=== PATIENT | female | born 1940 | race Caucasian/White ===

== ENCOUNTER 2017-01-27 15:10 | Inpatient (IN) | payer MEDICARE, OTHER ==
[2017-01-27] MEDS ORDERED: SODIUM CHLORIDE 0.9% 1,000 ML IV ONE (16:17)
[2017-01-27] MEDS ORDERED: ONDANSETRON 4 MG/2 ML VIAL IVP STA (16:17)
[2017-01-27] MEDS ORDERED: HYDROmorphone 1 MG/ML 1 ML SYRINGE IVP STA ×2 (16:17→21:11)
[2017-01-27] MEDS ORDERED: RX INFO: IV CONTRAST WAS GIVEN 1 EACH MISC MISCELLANE PRN (16:17)
[2017-01-27] MEDS ORDERED: IOHEXOL 350 MG/ML 25 ML BOTTLE (ORAL USE) PO PRN (16:17)
--- NOTE | 2017-01-27 16:22 | ED ---
Abdominal Pain HPI - General Chief Complaint: Abdominal Pain Stated Complaint: abdominal pain Source: patient Mode of arrival: wheelchair Limitations: no limitations - History of Present Illness Initial Comments: 76-year-old female with a past medical history of DM, HLD, HTN, appendectomy, cholecystectomy, hysterectomy, and small bowel obstruction presented for evaluation of generalized abdominal pain and distention. She states he symptoms have been progressively worsening over the last 2 weeks but acutely worsened today. She describes as a crampy sharpness currently out of 10 out of 10 constant with associated nausea. She states there was some diarrhea initially and her last bowel movement was this morning however she has not been passing gas since yesterday and she states this is abnormal. She states her symptoms feel like the last time she had a bowel obstruction. - Related Data Home Medications Medication Instructions Recorded Confirmed Albuterol Sulfate [Proair Hfa] 1 - 2 puff INHALATION RT-Q6H PRN 05/08/14 Amitriptyline HCl [Elavil] 150 mg PO HS 05/08/14 01/27/17 Clopidogrel [Plavix] 75 mg PO DAILY 05/08/14 01/27/17 Esomeprazole Magnesium [NexIUM] 20 mg PO AC-BRKFST 05/08/14 01/27/17 Levothyroxine Sodium [Synthroid] 75 mcg PO DAILY 05/08/14 01/27/17 Topiramate [Topamax] 100 mg PO TID 05/08/14 01/27/17 HYDROcodone/APAP 10-325MG [[place] 1 tab PO QID 01/29/16 01/27/17 10-325] Calcium Carbonate 400mg 400 mg PO BID 01/27/17 01/27/17 Cholecalciferol [Vitamin D3] 10,000 unit PO DAILY 01/27/17 01/27/17 Docusate [Colace] 100 mg PO BID PRN 01/27/17 01/27/17 Furosemide [Lasix] 20 mg PO DAILY PRN 01/27/17 01/27/17 LORazepam [Ativan] 0.5 mg PO DAILY PRN 01/27/17 01/27/17 LORazepam [Ativan] 1 mg PO HS 01/27/17 01/27/17 Metoprolol Tartrate [Lopressor] 50 mg PO BID 01/27/17 01/27/17 Morphine Sulfate ER [Ms Contin 60 mg PO Q12HR 01/27/17 01/27/17 60Mg] Phenytoin Sodium Extended 200 mg PO BID 01/27/17 01/27/17 [Dilantin] QUEtiapine [SEROquel] 25 mg PO BID 01/27/17 01/27/17 Vitamin B Complex 1 cap PO DAILY 01/27/17 01/27/17 amLODIPine [Norvasc] 10 mg PO DAILY 01/27/17 01/27/17 cloNIDine HCL [Catapres] 0.1 mg PO BID 01/27/17 01/27/17 levETIRAcetam [Keppra] 500 mg PO TID 01/27/17 01/27/17 Allergies Allergy/AdvReac Type Severity Reaction Status Date / Time cephalexin [From Keflex] Allergy Unknown Verified 01/27/17 16:50 Cephalosporins Allergy Unknown Verified 01/27/17 16:50 ciprofloxacin [From Cipro] Allergy Rash/Hives Verified 01/27/17 16:50 diazepam [From Valium] Allergy Unknown Verified 01/27/17 16:50 erythromycin base Allergy Unknown Verified 01/27/17 16:50 [Erythromycin Base] ketorolac tromethamine Allergy Unknown Verified 01/27/17 16:50 [From Toradol] Penicillins Allergy Unknown Verified 01/27/17 16:50 pentazocine lactate Allergy Unknown Verified 01/27/17 16:50 [From Talwin] Sulfa (Sulfonamide Allergy Unknown Verified 01/27/17 16:50 Antibiotics) sumatriptan [From Imitrex] Allergy Unknown Verified 01/27/17 16:50 sumatriptan succinate Allergy Unknown Verified 01/27/17 16:50 [From Imitrex] tetracycline [Tetracycline] Allergy Unknown Verified 01/27/17 16:50 vancomycin Allergy Unknown Verified 01/27/17 16:50 levofloxacin [From Levaquin] AdvReac Nausea & Verified 01/27/17 16:50 Vomiting Review of Systems ROS Statement: Those systems with pertinent positive or pertinent negative responses have been documented in the HPI. ROS Other: All systems not noted in ROS Statement are negative. Constitutional: Denies: fever, chills Eyes: Denies: eye pain, eye discharge ENT: Denies: ear pain, throat pain Respiratory: Reports: dyspnea (unable to take deep inspirations due to abdominal pain). Denies: cough Cardiovascular: Denies: chest pain, palpitations, dyspnea on exertion Endocrine: Denies: fatigue, polydipsia, polyuria Gastrointestinal: Reports: abdominal pain, nausea, diarrhea, constipation. Denies: vomiting, hematemesis, melena, hematochezia Genitourinary: Denies: urgency, dysuria Musculoskeletal: Denies: back pain, arthralgia, myalgia Skin: Denies: rash, lesions Neurological: Denies: headache, weakness Psychiatric: Denies: anxiety, depression Hematological/Lymphatic: Denies: easy bleeding, easy bruising Past Medical History Past Medical History: Diabetes Mellitus, Hyperlipidemia, Hypertension History of Any Multi-Drug Resistant Organisms: MRSA Date of last positivie culture/infection: 2013 MDRO Source:: (R) arm Past Surgical History: Appendectomy, Cholecystectomy, Hysterectomy, Tonsillectomy Past Psychological History: Anxiety Smoking Status: Never smoker Past Alcohol Use History: None Reported Past Drug Use History: None Reported - Past Family History Mother Additional Family Medical History / Comment(s): Brain tumor Brother(s) Additional Family Medical History / Comment(s): Colon Cancer Father Family Medical History: Cancer Additional Family Medical History / Comment(s): Lung cancer General Exam Limitations: no limitations General appearance: alert, in distress Head exam: Present: atraumatic, normocephalic, normal inspection Eye exam: Present: normal appearance, PERRL, EOMI. Absent: scleral icterus, conjunctival injection, periorbital swelling ENT exam: Present: normal exam, mucous membranes moist Neck exam: Present: normal inspection. Absent: tenderness, meningismus, lymphadenopathy Respiratory exam: Present: normal lung sounds bilaterally. Absent: respiratory distress, wheezes, rales, rhonchi, stridor Cardiovascular Exam: Present: normal rhythm, tachycardia, normal heart sounds. Absent: systolic murmur, diastolic murmur, rubs, gallop, clicks GI/Abdominal exam: Present: soft, distended, tenderness. Absent: guarding, rebound, rigid Rectal exam: Present: deferred Extremities exam: Present: normal inspection, full ROM, normal capillary refill. Absent: tenderness, pedal edema, joint swelling, calf tenderness Back exam: Present: normal inspection Neurological exam: Present: alert, oriented X3, CN II-XII intact Psychiatric exam: Present: normal affect, normal mood Skin exam: Present: warm, dry, intact, normal color. Absent: rash Course Vital Signs 01/27/17 01/27/17 01/27/17 15:39 19:11 21:20 Temperature 99.4 F 98.2 F 98.8 F Pulse Rate 107 H 90 86 Respiratory 18 20 19 Rate Blood Pressure 186/88 O2 Sat by Pulse 100 98 97 Oximetry Medical Decision Making - Medical Decision Making 76-year-old female with past medical history of multiple abdominal surgeries, bowel obstruction, and ventral hernias presented for evaluation of abdominal pain and distention. Symptoms have been for the last 2 weeks but acutely worsened today. She also states decreased flatness and her last bowel movement was a small one this morning. She states this feels similar to her previous bowel obstruction. On physical examination the patient's abdomen does appear to be distended and is tender to palpation throughout. There is a ventral hernia noted to the right abdomen just lateral to the umbilicus however it does not feel incarcerated and it is not reducible either. Lungs are clear to auscultation bilaterally and the patient is tachycardic. Concern for bowel obstruction versus ileus versus pancreatitis versus diverticulitis and will obtain CT abdomen and pelvis with oral contrast, EKG, acute abdominal series, labs, and provide IV fluids, pain control, and Zofran. Labs significant for pancreatitis. UA showed possible urinary tract infection. CT abdomen and pelvis with by mouth contrast shows mild constipation and dilated urinary bladder as well as bilateral hydronephrosis without hydroureter. Hydronephrosis is worse on the right compared to the left compared to previous scans. There are certain calculus identified however and this change may be chronic. There is a large ventral hernia however there is no evidence of bowel obstruction there is also a loop of small bowel in the right mid abdomen as have some wall thickening that is new compared to old exam and may indicate inflammatory bowel disease. Admitting team updated on the status of the patient and accepted the admission without further request. Admission order placed and bed request submitted. Pt made NPO and IVF/pain control continued. Pt started on antibiotics to cover for both UTI and intraabdominal infection. - Lab Data Result diagrams: 01/27/17 17:00 01/27/17 17:00 Lab Results 01/27/17 01/27/17 01/27/17 Range/Units 17:00 17:00 17:00 WBC 6.7 (3.8-10.6) k/uL RBC 4.56 (3.80-5.40) m/uL Hgb 11.5 (11.4-16.0) gm/dL Hct 37.2 (34.0-46.0) % MCV 81.5 (80.0-100.0) fL MCH 25.2 (25.0-35.0) pg MCHC 30.9 L (31.0-37.0) g/dL RDW 14.6 (11.5-15.5) % Plt Count 229 (150-450) k/uL Neutrophils % 79 % Lymphocytes % 10 % Monocytes % 7 % Eosinophils % 2 % Basophils % 0 % Neutrophils # 5.3 (1.3-7.7) k/uL Lymphocytes # 0.7 L (1.0-4.8) k/uL Monocytes # 0.4 (0-1.0) k/uL Eosinophils # 0.1 (0-0.7) k/uL Basophils # 0.0 (0-0.2) k/uL Hypochromasia Slight PT (9.0-12.0) sec INR (<1.2) APTT (22.0-30.0) sec Sodium 143 (137-145) mmol/L Potassium 4.3 (3.5-5.1) mmol/L Chloride 110 H (98-107) mmol/L Carbon Dioxide 22 (22-30) mmol/L Anion Gap 11 mmol/L BUN 18 H (7-17) mg/dL Creatinine 0.70 (0.52-1.04) mg/dL Est GFR (MDRD) Af Amer >60 (>60 ml/min/1.73 sqM) Est GFR (MDRD) Non-Af >60 (>60 ml/min/1.73 sqM) Glucose 107 H (74-99) mg/dL Plasma Lactic Acid [place] 1.4 (0.7-2.0) mmol/L Calcium 9.6 (8.4-10.2) mg/dL Total Bilirubin 0.3 (0.2-1.3) mg/dL AST 36 (14-36) U/L ALT 42 (9-52) U/L Alkaline Phosphatase 82 (38-126) U/L Troponin I (0.000-0.034) ng/mL Total Protein 6.5 (6.3-8.2) g/dL Albumin 4.0 (3.5-5.0) g/dL Lipase 954 H (23-300) U/L Urine Color Urine Appearance (Clear) Urine pH (5.0-8.0) Ur Specific [place] (1.001-1.035) Urine Protein (Negative) Urine Glucose (UA) (Negative) Urine Ketones (Negative) Urine Blood (Negative) Urine Nitrite (Negative) Urine Bilirubin (Negative) Urine Urobilinogen (<2.0) mg/dL Ur Leukocyte Esterase (Negative) Urine RBC (0-5) /hpf Urine WBC (0-5) /hpf Ur Squamous Epith Cells (0-4) /hpf Urine Bacteria (None) /hpf Blood Type Blood Type Recheck Antibody Screen Spec Expiration Date 01/27/17 01/27/17 01/27/17 Range/Units 17:00 17:00 17:47 WBC (3.8-10.6) k/uL RBC (3.80-5.40) m/uL Hgb (11.4-16.0) gm/dL Hct (34.0-46.0) % MCV (80.0-100.0) fL MCH (25.0-35.0) pg MCHC (31.0-37.0) g/dL RDW (11.5-15.5) % Plt Count (150-450) k/uL Neutrophils % % Lymphocytes % % Monocytes % % Eosinophils % % Basophils % % Neutrophils # (1.3-7.7) k/uL Lymphocytes # (1.0-4.8) k/uL Monocytes # (0-1.0) k/uL Eosinophils # (0-0.7) k/uL Basophils # (0-0.2) k/uL Hypochromasia PT 10.4 (9.0-12.0) sec INR 1.0 (<1.2) APTT 23.5 (22.0-30.0) sec Sodium (137-145) mmol/L Potassium (3.5-5.1) mmol/L Chloride (98-107) mmol/L Carbon Dioxide (22-30) mmol/L Anion Gap mmol/L BUN (7-17) mg/dL Creatinine (0.52-1.04) mg/dL Est GFR (MDRD) Af Amer (>60 ml/min/1.73 sqM) Est GFR (MDRD) Non-Af (>60 ml/min/1.73 sqM) Glucose (74-99) mg/dL Plasma Lactic Acid [place] (0.7-2.0) mmol/L Calcium (8.4-10.2) mg/dL Total Bilirubin (0.2-1.3) mg/dL AST (14-36) U/L ALT (9-52) U/L Alkaline Phosphatase (38-126) U/L Troponin I <0.012 (0.000-0.034) ng/mL Total Protein (6.3-8.2) g/dL Albumin (3.5-5.0) g/dL Lipase (23-300) U/L Urine Color Urine Appearance (Clear) Urine pH (5.0-8.0) Ur Specific [place] (1.001-1.035) Urine Protein (Negative) Urine Glucose (UA) (Negative) Urine Ketones (Negative) Urine Blood (Negative) Urine Nitrite (Negative) Urine Bilirubin (Negative) Urine Urobilinogen (<2.0) mg/dL Ur Leukocyte Esterase (Negative) Urine RBC (0-5) /hpf Urine WBC (0-5) /hpf Ur Squamous Epith Cells (0-4) /hpf Urine Bacteria (None) /hpf Blood Type B Positive Blood Type Recheck B Pos Antibody Screen NEGATIVE Spec Expiration Date 01/30/2017234601/27/17 Range/Units 20:27 WBC (3.8-10.6) k/uL RBC (3.80-5.40) m/uL Hgb (11.4-16.0) gm/dL Hct (34.0-46.0) % MCV (80.0-100.0) fL MCH (25.0-35.0) pg MCHC (31.0-37.0) g/dL RDW (11.5-15.5) % Plt Count (150-450) k/uL Neutrophils % % Lymphocytes % % Monocytes % % Eosinophils % % Basophils % % Neutrophils # (1.3-7.7) k/uL Lymphocytes # (1.0-4.8) k/uL Monocytes # (0-1.0) k/uL Eosinophils # (0-0.7) k/uL Basophils # (0-0.2) k/uL Hypochromasia PT (9.0-12.0) sec INR (<1.2) APTT (22.0-30.0) sec Sodium (137-145) mmol/L Potassium (3.5-5.1) mmol/L Chloride (98-107) mmol/L Carbon Dioxide (22-30) mmol/L Anion Gap mmol/L BUN (7-17) mg/dL Creatinine (0.52-1.04) mg/dL Est GFR (MDRD) Af Amer (>60 ml/min/1.73 sqM) Est GFR (MDRD) Non-Af (>60 ml/min/1.73 sqM) Glucose (74-99) mg/dL Plasma Lactic Acid [place] (0.7-2.0) mmol/L Calcium (8.4-10.2) mg/dL Total Bilirubin (0.2-1.3) mg/dL AST (14-36) U/L ALT (9-52) U/L Alkaline Phosphatase (38-126) U/L Troponin I (0.000-0.034) ng/mL Total Protein (6.3-8.2) g/dL Albumin (3.5-5.0) g/dL Lipase (23-300) U/L Urine Color Light Yellow Urine Appearance Cloudy H (Clear) Urine pH 5.5 (5.0-8.0) Ur Specific [place] 1.006 (1.001-1.035) Urine Protein Negative (Negative) Urine Glucose (UA) Negative (Negative) Urine Ketones Negative (Negative) Urine Blood Negative (Negative) Urine Nitrite Positive H (Negative) Urine Bilirubin Negative (Negative) Urine Urobilinogen <2.0 (<2.0) mg/dL Ur Leukocyte Esterase Small H (Negative) Urine RBC 11 H (0-5) /hpf Urine WBC 6 H (0-5) /hpf Ur Squamous Epith Cells <1 (0-4) /hpf Urine Bacteria Moderate H (None) /hpf Blood Type Blood Type Recheck Antibody Screen Spec Expiration Date 01/27/17 17:55 Number sinus rhythm with right bundle branch block and a ventricular rate of 96 , AMAYA 144 QRS 142 QT/QTC 388/490. Disposition Clinical Impression: Pancreatitis, UTI (urinary tract infection), Inflammatory bowel disease Disposition: ADMITTED IP TO THIS [facility] Decision to Admit Reason: Admit from EC Decision Date: 01/27/17 Decision Time: 21:22
[2017-01-27 17:16] LABS: Basophils % (A) 0 %; CH 25.4; CHCM 31.3; Eosinophils # (A) 0.1 k/uL (0-0.7); Eosinophils % (A) 2 %; HCT 37.2 % (34.0-46.0); HDW 2.82; HGB 11.5 gm/dL (11.4-16.0); Hypochromasia Slight; Luc # (Auto) 0.14; Luc % (Auto) 2; Lymphocytes # (A) 0.7 k/uL (1.0-4.8); Lymphocytes % (A) 10 %; MCH 25.2 pg (25.0-35.0); MCHC 30.9 g/dL (31.0-37.0); MCV 81.5 fL (80.0-100.0); Mean Platelet Volume 7.6; Monocytes # (A) 0.4 k/uL (0-1.0); Monocytes % (A) 7 %; Neutrophils # (A) 5.3 k/uL (1.3-7.7); Neutrophils % (A) 79 %; RBC 4.56 m/uL (3.80-5.40); RDW 14.6 % (11.5-15.5); WBC 6.7 k/uL (3.8-10.6); WBC (Perox) 7.04
[2017-01-27 17:26] LABS: Partial Thromboplastin Time 23.5 sec (22.0-30.0); Prothrombin Time 10.4 sec (9.0-12.0)
[2017-01-27 17:33] LABS: ALT 42 U/L (9-52); AST 36 U/L (14-36); Alkaline Phosphatase 82 U/L (38-126); Anion Gap 11 mmol/L; Blood Urea Nitrogen 18 mg/dL (7-17); Calcium 9.6 mg/dL (8.4-10.2); Carbon Dioxide 22 mmol/L (22-30); Chloride 110 mmol/L (98-107); Glucose 107 mg/dL (74-99); Non-African American GFR(MDRD) >60 (>60 ml/min/1.73 sqM); Potassium 4.3 mmol/L (3.5-5.1); Sodium 143 mmol/L (137-145); Total Bilirubin 0.3 mg/dL (0.2-1.3); Total Protein 6.5 g/dL (6.3-8.2)
--- NOTE | 2017-01-27 17:45 | XR ---
EXAMINATION TYPE: XR abdomen acute w cxr DATE OF EXAM: 01/27/2017 COMPARISON: 05/08/2014 HISTORY: Abdominal pain TECHNIQUE: 4 views FINDINGS: Lungs are clear. There is no heart failure. There is no sign of pleural effusion. There are clips fro m cholecystectomy. Bowel gas pattern is normal. There are numerous surgical clips in the pelvis. Ther e is no sign of intestinal obstruction or pneumoperitoneum. Fecal pattern is normal. There are no def inite pathologic calcifications over the kidneys. IMPRESSION: No active cardiopulmonary disease. Nonacute abdomen. There is decreased fecal material compared to ol d exam.
[2017-01-27] MEDS ORDERED: MORPHINE SULFATE 4 MG/ML SYRINGE IVP STA (18:39)
--- NOTE | 2017-01-27 20:44 | CT ---
EXAMINATION TYPE: CT abdomen pelvis w con DATE OF EXAM: 01/27/2017 COMPARISON: 11/12/1714 HISTORY: Generalized abdominal pain with nausea and alternating diarrhea and constipation. CT DLP: 1379.90 mGycm Automated exposure control for dose reduction was used. TECHNIQUE: Helical acquisition of images was performed from the lung bases through the pelvis. CONTRAST: Performed with Oral Contrast and with IV Contrast, patient injected with 100 mL of Omnipaque 300. FINDINGS: : Lung bases are clear and there is no pleural effusion. Liver shows no focal defect. There are clips from cholecystectomy. Common bile duct is ectatic and measures 1.5 cm. There is pancreatic atrophy. Spleen appears normal. There are multiple surgical clips around the stomach. There is no adrenal mass. Kidneys show satisfactory contrast opacification. There is bilateral enlarg ement of the renal collecting systems. Ureters are not dilated. I see no obstructing calculus. There is a 3 mm calcification in the left kidney. There is a 5 mm calcification in the anterior left kidney . There is no retroperitoneal adenopathy. There is a large midline ventral hernia. Bladder distends s moothly. There is no pelvic mass. There is no ascites. There is no sign of a bowel obstruction. I see no bony destructive process. IMPRESSION: PREVIOUS SURGERY. MILD CONSTIPATION. DILATED URINARY BLADDER COULD RELATE TO CHRONIC BLADDER OUTLET O BSTRUCTION. THERE IS BILATERAL HYDRONEPHROSIS AND MORE ON THE RIGHT SIDE THAT APPEARS WORSE THAN OLD CT SCAN. NO OBSTRUCTING CALCULUS IDENTIFIED. SMALL LEFT RENAL CALCULI. THE CALCULI APPEAR NEW COMPARE D TO OLD EXAM. LARGE VENTRAL HERNIA. NO EVIDENCE OF BOWEL OBSTRUCTION. THERE IS A LOOP OF SMALL BOWEL IN THE RIGHT MID ABDOMEN THAT APPEARS TO HAVE SOME WALL THICKENING THAT IS NEW COMPARED TO OLD EXAM. THE CLINICAL SIGNIFICANCE IS NOT CLEAR. THIS IS BEST SEEN ON SAGITTAL IMAGE 32. THIS COULD BE SOME L OCALIZED INFLAMMATORY BOWEL DISEASE.
[2017-01-27 20:49] LABS: Appearance,Urine Cloudy (Clear); Bacteria,Urine Moderate /hpf; Bilirubin,Urine Negative (Negative); Glucose,Urine (UA) Negative (Negative); Ketones,Urine Negative (Negative); Leukocyte Esterase,Urine Small (Negative); Nitrite,Urine Positive (Negative); PH, Urine 5.5 (5.0-8.0); Particle Count 18604; Protein,Urine Negative (Negative); RBC,Urine 11 /hpf (0-5); Specific Gravity,Urine 1.006 (1.001-1.035); Squamous Epithelial Cell,Urine <1 /hpf (0-4); UA Billing (MACRO vs. MICRO) MICRO; Urobilinogen,Urine <2.0 mg/dL (<2.0); WBC,Urine 6 /hpf (0-5)
[2017-01-27] MEDS ORDERED: KETOROLAC 30 MG/ML 1 ML VIAL IVP PRN (21:15)
[2017-01-27] MEDS ORDERED: NALOXONE 0.4 MG/ML 1 ML VIAL IV PRN (21:15)
[2017-01-27] MEDS ORDERED: ONDANSETRON 4 MG/2 ML VIAL IVP PRN (21:15)
[2017-01-27] MEDS ORDERED: MORPHINE SULFATE 4 MG/ML SYRINGE IV PRN (21:15)
[2017-01-27] MEDS ORDERED: LORazepam 0.5 MG TAB PO PRN (21:18)
[2017-01-27] MEDS ORDERED: ALBUTEROL NEBULIZED 2.5 MG/3 ML INHALATION PRN (21:18)
[2017-01-27] MEDS ORDERED: FUROSEMIDE 20 MG TAB PO PRN (21:18)
[2017-01-27 23:27] VITALS: BMI 36.3
[2017-01-27 23:38] VITALS: TEMP 97.5
[2017-01-27] MEDS: SODIUM CHLORIDE 0.9% 1,000 ML IV SCH (23:38)
[2017-01-27] MEDS: TOPIRAMATE 100 MG TAB PO SCH (23:49)
[2017-01-27] MEDS: levETIRAcetam 500 MG TAB PO SCH (23:49)
[2017-01-28] MEDS ORDERED: FUROSEMIDE 20 MG TAB PO PRN (01:22)
[2017-01-28] MEDS ORDERED: LORazepam 0.5 MG TAB PO SCH ×2 (01:25→21:00)
[2017-01-28] MEDS ORDERED: AMITRIPTYLINE HCL 50 MG TAB PO SCH ×2 (01:25→21:00)
[2017-01-28] MEDS: METOPROLOL TARTRATE 50 MG TAB PO SCH ×2 (01:36→08:51)
[2017-01-28] MEDS ORDERED: metroNIDAZOLE-NS PMX 500 MG in SALINE 1 100ML.BAG IVPB STA (02:25)
[2017-01-28] MEDS ORDERED: LEVOFLOXACIN 500MG-D5W PMX 500 MG in DEXTROSE/WATER 1 100ML.BAG IVPB STA (02:25)
[2017-01-28] MEDS: HYDROmorphone 1 MG/ML 1 ML SYRINGE IV PRN ×4 (03:19→13:49)
[2017-01-28] MEDS: SODIUM CHLORIDE 0.9% 1,000 ML IV SCH ×2 (07:01→14:58)
[2017-01-28] MEDS ORDERED: PANTOPRAZOLE 40 MG TABLET PO SCH (07:30)
[2017-01-28] MEDS: levETIRAcetam 500 MG TAB PO SCH ×2 (08:51→15:56)
[2017-01-28] MEDS: TOPIRAMATE 100 MG TAB PO SCH ×2 (08:52→15:56)
[2017-01-28] MEDS ORDERED: METOPROLOL TARTRATE 50 MG TAB PO SCH (09:00)
[2017-01-28] MEDS ORDERED: CLOPIDOGREL 75 MG TAB PO SCH (09:00)
[2017-01-28] MEDS ORDERED: amLODIPine 10 MG TAB PO SCH (09:00)
[2017-01-28] MEDS ORDERED: LEVOTHYROXINE 75 MCG TAB PO SCH (09:00)
[2017-01-28] MEDS ORDERED: cloNIDine HCL 0.1 MG TAB PO SCH (09:00)
[2017-01-28] MEDS ORDERED: PHENYTOIN SODIUM EXTENDED 100 MG CAP PO SCH (09:00)
[2017-01-28] MEDS ORDERED: QUEtiapine 25 MG TAB PO SCH (09:00)
[2017-01-28 09:09] LABS: Basophils % (A) 0 %; CH 24.8; CHCM 30.7; Eosinophils # (A) 0.1 k/uL (0-0.7); Eosinophils % (A) 3 %; HCT 33.2 % (34.0-46.0); HDW 2.88; HGB 10.5 gm/dL (11.4-16.0); Hypochromasia Moderate; Luc # (Auto) 0.15; Luc % (Auto) 3; Lymphocytes # (A) 0.8 k/uL (1.0-4.8); Lymphocytes % (A) 18 %; MCH 25.5 pg (25.0-35.0); MCHC 31.5 g/dL (31.0-37.0); MCV 80.9 fL (80.0-100.0); Mean Platelet Volume 7.5; Monocytes # (A) 0.3 k/uL (0-1.0); Monocytes % (A) 8 %; Neutrophils # (A) 2.9 k/uL (1.3-7.7); Neutrophils % (A) 68 %; RBC 4.11 m/uL (3.80-5.40); RDW 13.9 % (11.5-15.5); WBC 4.3 k/uL (3.8-10.6); WBC (Perox) 4.55
[2017-01-28 09:52] LABS: Amylase 39 U/L (30-110); Anion Gap 8 mmol/L; Blood Urea Nitrogen 12 mg/dL (7-17); Calcium 8.5 mg/dL (8.4-10.2); Carbon Dioxide 23 mmol/L (22-30); Chloride 112 mmol/L (98-107); Glucose 93 mg/dL (74-99); Magnesium 1.5 mg/dL (1.6-2.3); Non-African American GFR(MDRD) >60 (>60 ml/min/1.73 sqM); Phosphorous 3.1 mg/dL (2.5-4.5); Potassium 4.3 mmol/L (3.5-5.1); Sodium 143 mmol/L (137-145)
[2017-01-28 10:27] VITALS: BP 161/61; PULSE 68; RESP 16
[2017-01-28] MEDS ORDERED: POLYETHYLENE GLYCOL 3350 17 GM POWD.PACK PO PRN (14:17)
[2017-01-28] MEDS ORDERED: MINERAL OIL 133 ML ENEMA RECTAL STA (14:18)
[2017-01-28] MEDS ORDERED: MAGNESIUM SULFATE-D5W PMX 1 GM in DEXTROSE/WATER 1 100ML.BAG IVPB SCH (15:00)
--- NOTE | 2017-01-28 15:00 | P.HPIM ---
History of Present Illness 76-year-old female came in with complains of diffuse abdominal pain has been going on for 2 weeks patient has severe constipation on and off, patient 2 days ago had bad diarrhea. Patient clinically has severe constipation abdomen is tympanic in nature CAT scan of the abdomen did show significant amount of stool along with bladder distention patient uses morphine high-dose for her fibromyalgia and chronic low back pain. Patient has nonspecific mild elevation of lipase. Symptoms are not consistent with pancreatitis. Patient's pain is crampy to sharp in nature moderate. Patient does have have ventral hernia, but that is not contributing to her pain. I had extensive discussion with the patient and patient is not willing to take any NSAID and she says that she has reaction tenderness states in spite of extensive counseling she is declining to take any nonsteroidal anti-inflammatory medications and wanted opiates for pain. Patient denied any fever chills, dysuria. Patient had a symptomatically bacteriuria from UA. Which doesn't warrant any antibiotics patient is definitely high risk for infection due to urinary retention. 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 Further management of pain medications as per the primary care physician as patient is not willing to cooperate with me regarding her pain management. Review of Systems REVIEW OF SYSTEMS: CONSTITUTIONAL: No fever, no malaise, no fatigue. HEENT: No recent visual problems or hearing problems. Denied any sore throat. CARDIOVASCULAR: No chest pain, orthopnea, PND, no palpitations, no syncope. PULMONARY: No shortness of breath, no cough, no hemoptysis. GASTROINTESTINAL: As mentioned in HPI NEUROLOGICAL: No headaches, no weakness, no numbness. HEMATOLOGICAL: Denies any bleeding or petechiae. GENITOURINARY: Denies any burning micturition, frequency, or urgency. MUSCULOSKELETAL/RHEUMATOLOGICAL: Denies any joint pain, swelling, or any muscle pain. ENDOCRINE: Denies any polyuria or polydipsia. The rest of the 14-point review of systems is negative. 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 Past Psychological History: Anxiety Smoking Status: Never smoker Past Alcohol Use History: None Reported Past Drug Use History: None Reported - Past Family History Mother Additional Family Medical History / Comment(s): Brain tumor Brother(s) Additional Family Medical History / Comment(s): Colon Cancer Father Family Medical History: Cancer Additional Family Medical History / Comment(s): Lung cancer Medications and Allergies Home Medications Medication Instructions Recorded Confirmed Type Albuterol Sulfate [Proair Hfa] 1 - 2 puff INHALATION RT-Q6H PRN 05/08/14 History Amitriptyline HCl [Elavil] 150 mg PO HS 05/08/14 01/27/17 History Clopidogrel [Plavix] 75 mg PO DAILY 05/08/14 01/27/17 History Esomeprazole Magnesium [NexIUM] 20 mg PO AC-BRKFST 05/08/14 01/27/17 History Levothyroxine Sodium [Synthroid] 75 mcg PO DAILY 05/08/14 01/27/17 History Topiramate [Topamax] 100 mg PO TID 05/08/14 01/27/17 History HYDROcodone/APAP 10-325MG [[place] 1 tab PO QID 01/29/16 01/27/17 History 10-325] Calcium Carbonate 400mg 400 mg PO BID 01/27/17 01/27/17 History Cholecalciferol [Vitamin D3] 10,000 unit PO DAILY 01/27/17 01/27/17 History Docusate [Colace] 100 mg PO BID PRN 01/27/17 01/27/17 History Furosemide [Lasix] 20 mg PO DAILY PRN 01/27/17 01/27/17 History LORazepam [Ativan] 0.5 mg PO DAILY PRN 01/27/17 01/27/17 History LORazepam [Ativan] 1 mg PO HS 01/27/17 01/27/17 History Metoprolol Tartrate [Lopressor] 50 mg PO BID 01/27/17 01/27/17 History Morphine Sulfate ER [Ms Contin 60 mg PO Q12HR 01/27/17 01/27/17 History 60Mg] Phenytoin Sodium Extended 200 mg PO BID 01/27/17 01/27/17 History [Dilantin] QUEtiapine [SEROquel] 25 mg PO BID 01/27/17 01/27/17 History Vitamin B Complex 1 cap PO DAILY 01/27/17 01/27/17 History amLODIPine [Norvasc] 10 mg PO DAILY 01/27/17 01/27/17 History levETIRAcetam [Keppra] 500 mg PO TID 01/27/17 01/27/17 History Allergies Allergy/AdvReac Type Severity Reaction Status Date / Time cephalexin [From Keflex] Allergy Unknown Verified 01/27/17 16:50 Cephalosporins Allergy Unknown Verified 01/27/17 16:50 ciprofloxacin [From Cipro] Allergy Rash/Hives Verified 01/27/17 16:50 diazepam [From Valium] Allergy Unknown Verified 01/27/17 16:50 erythromycin base Allergy Unknown Verified 01/27/17 16:50 [Erythromycin Base] ketorolac tromethamine Allergy Unknown Verified 01/27/17 16:50 [From Toradol] Penicillins Allergy Unknown Verified 01/27/17 16:50 pentazocine lactate Allergy Unknown Verified 01/27/17 16:50 [From Talwin] Sulfa (Sulfonamide Allergy Unknown Verified 01/27/17 16:50 Antibiotics) sumatriptan [From Imitrex] Allergy Unknown Verified 01/27/17 16:50 sumatriptan succinate Allergy Unknown Verified 01/27/17 16:50 [From Imitrex] tetracycline [Tetracycline] Allergy Unknown Verified 01/27/17 16:50 vancomycin Allergy Unknown Verified 01/27/17 16:50 levofloxacin [From Levaquin] AdvReac Nausea & Verified 01/27/17 16:50 Vomiting Physical Exam Vitals: Vital Signs Temp Pulse Pulse Resp BP BP Pulse Ox 01/28/17 08:00 97.5 F L 68 16 161/61 98 01/28/17 03:30 66 137/67 01/28/17 02:35 102 H 167/109 01/28/17 02:25 104 H 179/105 01/28/17 02:10 72 210/130 01/28/17 01:50 112 H 221/91 01/28/17 01:35 110 H 189/115 01/28/17 01:20 79 190/113 01/28/17 01:15 113 H 226/107 08/04/17 23:36 97.5 F L 87 17 163/68 99 01/27/17 21:20 98.8 F 86 19 97 01/27/17 19:11 98.2 F 90 20 98 01/27/17 15:39 99.4 F 107 H 18 186/88 100 Intake and Output 01/27/17 01/28/17 01/28/17 22:59 06:59 14:59 Intake Total 1100 Balance 1100 Intake: IV 1100 Sodium Chloride 0.9% 1, 1000 000 ml @ 125 mls/hr IV . Q8H CHELA Rx#:[id number] metroNIDAZOLE-NS PMX 500 100 mg In Saline 1 100ml.bag @ 100 mls/hr IVPB ONCE STA Rx#:[id number] Other: Voiding Method Toilet # Voids 4 Weight 81.647 kg 81.6 kg PHYSICAL EXAMINATION: GENERAL: The patient is alert and oriented x3, not in any acute distress. Well developed, well nourished. HEENT: Pupils are round and equally reacting to light. EOMI. No scleral icterus. No conjunctival pallor. Normocephalic, atraumatic. No pharyngeal erythema. No thyromegaly. CARDIOVASCULAR: S1 and S2 present. No murmurs, rubs, or gallops. PULMONARY: Chest is clear to auscultation, no wheezing or crackles. ABDOMEN: Abdomen is distended and tympanic but no tenderness. Patient has little ventral hernia does not appear to be incarcerated. MUSCULOSKELETAL: No joint swelling or deformity. EXTREMITIES: No cyanosis, clubbing, or pedal edema. NEUROLOGICAL: Gross neurological examination did not reveal any focal deficits. SKIN: No rashes. Results CBC & Chem 7: 01/28/17 08:41 01/28/17 08:41 Labs: Abnormal Lab Results - Last 24 Hours (Table) 01/27/17 01/27/17 01/27/17 Range/Units 17:00 17:00 20:27 Hgb (11.4-16.0) gm/dL Hct (34.0-46.0) % MCHC 30.9 L (31.0-37.0) g/dL Lymphocytes # 0.7 L (1.0-4.8) k/uL Chloride 110 H (98-107) mmol/L BUN 18 H (7-17) mg/dL Glucose 107 H (74-99) mg/dL Magnesium (1.6-2.3) mg/dL Lipase 954 H (23-300) U/L Urine Appearance Cloudy H (Clear) Urine Nitrite Positive H (Negative) Ur Leukocyte Esterase Small H (Negative) Urine RBC 11 H (0-5) /hpf Urine WBC 6 H (0-5) /hpf Urine Bacteria Moderate H (None) /hpf 01/28/17 01/28/17 Range/Units 08:41 08:41 Hgb 10.5 L (11.4-16.0) gm/dL Hct 33.2 L (34.0-46.0) % MCHC (31.0-37.0) g/dL Lymphocytes # 0.8 L (1.0-4.8) k/uL Chloride 112 H (98-107) mmol/L BUN (7-17) mg/dL Glucose (74-99) mg/dL Magnesium 1.5 L (1.6-2.3) mg/dL Lipase (23-300) U/L Urine Appearance (Clear) Urine Nitrite (Negative) Ur Leukocyte Esterase (Negative) Urine RBC (0-5) /hpf Urine WBC (0-5) /hpf Urine Bacteria (None) /hpf Thrombosis Risk Factor Assmnt - Choose All That Apply Any of the Below Risk Factors Present?: Yes Each Factor Represents 1 point: Obesity (BMI >25) Other Risk Factors: Yes Each Risk Factor Represents 3 Points: Age 75 years or older Thrombosis Risk Factor Assessment Total Risk Factor Score: 4 Thrombosis Risk Factor Assessment Level: Moderate Risk Assessment and Plan Plan: #1 severe abdominal pain and urinary retention: Secondary to excess opiate use. Management as mentioned above, we'll if her constipation improves with an edema patient will be discharged today. #2 minimal elevation of lipase: Patient's symptomatology is not consistent with pancreatitis this is a nonspecific elevation no further intervention at this point of time. #3 type 2 diabetes mellitus #4 hypertension: Patient is on amlodipine patient is also on clonidine at nighttime I do not think once a day clonidine is beneficial that will be discontinued. #5 fibromyalgia and excess opiate use, counseling regarding that was provided. #6 chronic low back pain.
--- NOTE | 2017-01-28 15:01 | P.DS ---
Providers Date of admission: 01/27/17 21:15 Attending physician: Ed Owens Primary care physician: [facility] Course: Please refer to HPI Plan - Discharge Summary New Discharge Prescriptions: New Docusate [Colace] 100 mg PO BID PRN #60 capsule PRN Reason: Constipation Lubiprostone [Amitiza] 24 mcg PO BID #30 cap Polyethylene Glycol 3350 [Miralax] 17 gm PO DAILY PRN #15 packet PRN Reason: Constipation Discontinued cloNIDine HCL [Catapres] 0.1 mg PO BID No Action Albuterol Sulfate [Proair Hfa] 1 - 2 puff INHALATION RT-Q6H PRN PRN Reason: Shortness Of Breath Topiramate [Topamax] 100 mg PO TID Levothyroxine Sodium [Synthroid] 75 mcg PO DAILY Esomeprazole Magnesium [NexIUM] 20 mg PO AC-BRKFST Amitriptyline HCl [Elavil] 150 mg PO HS Clopidogrel [Plavix] 75 mg PO DAILY HYDROcodone/APAP 10-325MG [[place] 10-325] 1 tab PO QID Calcium Carbonate 400mg 400 mg PO BID LORazepam [Ativan] 1 mg PO HS LORazepam [Ativan] 0.5 mg PO DAILY PRN PRN Reason: Anxiety amLODIPine [Norvasc] 10 mg PO DAILY levETIRAcetam [Keppra] 500 mg PO TID QUEtiapine [SEROquel] 25 mg PO BID Metoprolol Tartrate [Lopressor] 50 mg PO BID Phenytoin Sodium Extended [Dilantin] 200 mg PO BID Docusate [Colace] 100 mg PO BID PRN PRN Reason: Constipation Furosemide [Lasix] 20 mg PO DAILY PRN PRN Reason: Edema Cholecalciferol [Vitamin D3] 10,000 unit PO DAILY Vitamin B Complex 1 cap PO DAILY Morphine Sulfate ER [Ms Contin 60Mg] 60 mg PO Q12HR Discharge Medication List Albuterol Sulfate [Proair Hfa] 1 - 2 puff INHALATION RT-Q6H PRN 05/08/14 [ History] Amitriptyline HCl [Elavil] 150 mg PO HS 05/08/14 [History] Clopidogrel [Plavix] 75 mg PO DAILY 05/08/14 [History] Esomeprazole Magnesium [NexIUM] 20 mg PO AC-BRKFST 05/08/14 [History] Levothyroxine Sodium [Synthroid] 75 mcg PO DAILY 05/08/14 [History] Topiramate [Topamax] 100 mg PO TID 05/08/14 [History] HYDROcodone/APAP 10-325MG [[place] 10-325] 1 tab PO QID 01/29/16 [History] Calcium Carbonate 400mg 400 mg PO BID 01/27/17 [History] Cholecalciferol [Vitamin D3] 10,000 unit PO DAILY 01/27/17 [History] Docusate [Colace] 100 mg PO BID PRN 01/27/17 [History] Furosemide [Lasix] 20 mg PO DAILY PRN 01/27/17 [History] LORazepam [Ativan] 0.5 mg PO DAILY PRN 01/27/17 [History] LORazepam [Ativan] 1 mg PO HS 01/27/17 [History] Metoprolol Tartrate [Lopressor] 50 mg PO BID 01/27/17 [History] Morphine Sulfate ER [Ms Contin 60Mg] 60 mg PO Q12HR 01/27/17 [History] Phenytoin Sodium Extended [Dilantin] 200 mg PO BID 01/27/17 [History] QUEtiapine [SEROquel] 25 mg PO BID 01/27/17 [History] Vitamin B Complex 1 cap PO DAILY 01/27/17 [History] amLODIPine [Norvasc] 10 mg PO DAILY 01/27/17 [History] levETIRAcetam [Keppra] 500 mg PO TID 01/27/17 [History] Docusate [Colace] 100 mg PO BID PRN #60 capsule 01/28/17 [Rx] Lubiprostone [Amitiza] 24 mcg PO BID #30 cap 01/28/17 [Rx] Polyethylene Glycol 3350 [Miralax] 17 gm PO DAILY PRN #15 packet 01/28/17 [Rx] Follow up Appointment(s)/Referral(s): Jones Gonsalez MD [STAFF PHYSICIAN] - 3 Days Margarita Salcedo DO [Primary Care Provider] - 3 Days Discharge Disposition: HOME SELF-CARE
[2017-01-28] MEDS ORDERED: MAGNESIUM OXIDE 400 MG TAB PO STA (15:06)
== END 2017-01-28 17:15 | disposition home or self-care (01) | DRG 392 ==
LOC: EC 15:10 → 3SUR 21:15
PROVIDERS: ADMIT Hospitalist; ATTEND Hospitalist
DX: K59.03 Drug induced constipation (principal); E11.9 Type 2 diabetes mellitus without complications; N13.2 Hydronephrosis with renal and ureteral calculous obstruction; I10 Essential (primary) hypertension; T40.2X5A Adverse effect of other opioids, initial encounter; R33.0 Drug induced retention of urine; R00.0 Tachycardia, unspecified; R82.71 Bacteriuria; G89.29 Other chronic pain; F41.9 Anxiety disorder, unspecified; E78.5 Hyperlipidemia, unspecified; M54.5 Low back pain; I45.10 Unspecified right bundle-branch block; M79.7 Fibromyalgia; E66.9 Obesity, unspecified; R74.8 Abnormal levels of other serum enzymes; K43.9 Ventral hernia without obstruction or gangrene; Z90.49 Acquired absence of other specified parts of digestive tract; Z90.710 Acquired absence of both cervix and uterus; Z90.3 Acquired absence of stomach [part of]; Z79.899 Other long term (current) drug therapy; Z79.02 Long term (current) use of antithrombotics/antiplatelets; Z80.1 Family history of malignant neoplasm of trachea, bronchus and lung; Z80.0 Family history of malignant neoplasm of digestive organs; Z86.14 Personal history of Methicillin resistant Staphylococcus aureus infection; Z86.19 Personal history of other infectious and parasitic diseases; Z87.19 Personal history of other diseases of the digestive system; Z79.891 Long term (current) use of opiate analgesic; Z88.1 Allergy status to other antibiotic agents; Z88.5 Allergy status to narcotic agent; Z88.0 Allergy status to penicillin; Z88.2 Allergy status to sulfonamides; Z88.8 Allergy status to other drugs, medicaments and biological substances; Z71.51 Drug abuse counseling and surveillance of drug abuser; Z91.14 Patient's other noncompliance with medication regimen; Z80.8 Family history of malignant neoplasm of other organs or systems
CPT/HCPCS: 36415; 74022; 74177; 80048; 80053; 81001; 82150; 83605; 83690; 83735; 84100; 84484; 85025; 85610; 85730; 86850; 86900; 86901; 93005; 96361; 96374; 96375; 96376; 99285

== ENCOUNTER 2017-02-10 09:46 | Inpatient (IN) | payer MEDICARE, OTHER ==
[2017-02-10] MEDS ORDERED: SODIUM CHLORIDE 0.9% 1,000 ML IV STA (10:25)
[2017-02-10] MEDS ORDERED: ONDANSETRON 4 MG/2 ML VIAL IVP STA (10:25)
[2017-02-10] MEDS ORDERED: HYDROmorphone 1 MG/ML 1 ML SYRINGE IVP STA (10:25)
--- NOTE | 2017-02-10 10:33 | ED ---
Abdominal Pain HPI - General Chief Complaint: Abdominal Pain Stated Complaint: ABDOMINAL AND BACK PAIN, SLOW URINATION, FEVER Time Seen by Provider: 02/10/17 10:08 Source: patient, RN notes reviewed Mode of arrival: wheelchair Limitations: no limitations - History of Present Illness Initial Comments: This is a 76-year-old female with a recent history of admission for pancreatitis who presents today with complaints of persistent abdominal pain for the past couple weeks since her last admission but also decreased urine output some foul smell to her urine and right kidney area pain. She also states her abdomin has gotten more distended and she has had nausea and diarrhea. She does complain some fever over chills or sweats. MD Complaint: abdominal pain, other - Related Data Home Medications Medication Instructions Recorded Confirmed Albuterol Sulfate [Proair Hfa] 1 - 2 puff INHALATION RT-Q6H PRN 05/08/14 Amitriptyline HCl [Elavil] 150 mg PO HS 05/08/14 02/10/17 Clopidogrel [Plavix] 75 mg PO DAILY 05/08/14 02/10/17 Esomeprazole Magnesium [NexIUM] 20 mg PO AC-BRKFST 05/08/14 02/10/17 Levothyroxine Sodium [Synthroid] 75 mcg PO DAILY 05/08/14 02/10/17 Topiramate [Topamax] 100 mg PO TID 05/08/14 02/10/17 HYDROcodone/APAP 10-325MG [[place] 1 tab PO QID 01/29/16 02/10/17 10-325] Calcium Carbonate 400mg 400 mg PO BID 01/27/17 02/10/17 Cholecalciferol [Vitamin D3] 10,000 unit PO DAILY 01/27/17 02/10/17 Furosemide [Lasix] 20 mg PO DAILY PRN 01/27/17 02/10/17 LORazepam [Ativan] 0.5 mg PO DAILY PRN 01/27/17 02/10/17 LORazepam [Ativan] 1 mg PO HS 01/27/17 02/10/17 Metoprolol Tartrate [Lopressor] 50 mg PO BID 01/27/17 02/10/17 Morphine Sulfate ER [Ms Contin 60 mg PO Q12HR 01/27/17 02/10/17 60Mg] Phenytoin Sodium Extended 200 mg PO BID 01/27/17 02/10/17 [Dilantin] QUEtiapine [SEROquel] 25 mg PO BID 01/27/17 02/10/17 Vitamin B Complex 1 cap PO DAILY 01/27/17 02/10/17 amLODIPine [Norvasc] 10 mg PO DAILY 01/27/17 02/10/17 levETIRAcetam [Keppra] 500 mg PO TID 01/27/17 02/10/17 Previous Rx's Medication Instructions Recorded Docusate [Colace] 100 mg PO BID PRN #60 capsule 01/28/17 Lubiprostone [Amitiza] 24 mcg PO BID #30 cap 01/28/17 Polyethylene Glycol 3350 [Miralax] 17 gm PO DAILY PRN #15 packet 01/28/17 Allergies Allergy/AdvReac Type Severity Reaction Status Date / Time cephalexin [From Keflex] Allergy Unknown Verified 02/10/17 10:25 Cephalosporins Allergy Unknown Verified 02/10/17 10:25 ciprofloxacin [From Cipro] Allergy Rash/Hives Verified 02/10/17 10:25 diazepam [From Valium] Allergy Unknown Verified 02/10/17 10:25 erythromycin base Allergy Unknown Verified 02/10/17 10:25 [Erythromycin Base] ketorolac tromethamine Allergy Unknown Verified 02/10/17 10:25 [From Toradol] Penicillins Allergy Unknown Verified 02/10/17 10:25 pentazocine lactate Allergy Unknown Verified 02/10/17 10:25 [From Talwin] Sulfa (Sulfonamide Allergy Unknown Verified 02/10/17 10:25 Antibiotics) sumatriptan [From Imitrex] Allergy Unknown Verified 02/10/17 10:25 sumatriptan succinate Allergy Unknown Verified 02/10/17 10:25 [From Imitrex] tetracycline [Tetracycline] Allergy Unknown Verified 02/10/17 10:25 vancomycin Allergy Unknown Verified 02/10/17 10:25 levofloxacin [From Levaquin] AdvReac Nausea & Verified 02/10/17 10:25 Vomiting Review of Systems ROS Statement: Those systems with pertinent positive or pertinent negative responses have been documented in the HPI. ROS Other: All systems not noted in ROS Statement are negative. 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 Past Psychological History: Anxiety Smoking Status: Never smoker Past Alcohol Use History: None Reported Past Drug Use History: None Reported - Past Family History Mother Additional Family Medical History / Comment(s): Brain tumor Brother(s) Additional Family Medical History / Comment(s): Colon Cancer Father Family Medical History: Cancer Additional Family Medical History / Comment(s): Lung cancer General Exam - General Exam Comments Initial Comments: This a well-developed well-nourished awake alert oriented x 3 female Limitations: no limitations General appearance: alert, in no apparent distress Head exam: Present: atraumatic, normocephalic, normal inspection Eye exam: Present: normal appearance, PERRL, EOMI. Absent: scleral icterus, conjunctival injection, periorbital swelling ENT exam: Present: mucous membranes dry Neck exam: Present: normal inspection. Absent: tenderness, meningismus, lymphadenopathy Respiratory exam: Present: normal lung sounds bilaterally. Absent: respiratory distress, wheezes, rales, rhonchi, stridor Cardiovascular Exam: Present: normal rhythm, tachycardia, normal heart sounds. Absent: systolic murmur, diastolic murmur, rubs, gallop, clicks GI/Abdominal exam: Present: soft, distended, tenderness (Mild tenderness palpation increased tympany she does have a ventral hernia with some distention. ), normal bowel sounds. Absent: guarding, rebound, rigid Extremities exam: Present: normal inspection, full ROM, normal capillary refill. Absent: tenderness, pedal edema, joint swelling, calf tenderness Back exam: Present: normal inspection Neurological exam: Present: alert, oriented X3, CN II-XII intact Psychiatric exam: Present: normal affect, normal mood Skin exam: Present: warm, dry, intact, normal color. Absent: rash Course Vital Signs 02/10/17 09:53 Temperature 101.1 F H Pulse Rate 112 H Respiratory 20 Rate Blood Pressure 138/84 O2 Sat by Pulse 100 Oximetry - Reevaluation(s) Reevaluation #1: 02/10/17 14:58 Status unable to obtain an ultrasound. I did consult interventional radiology an ultrasound guided IV will be started. Medical Decision Making - Medical Decision Making The patient will be admitted for treatment of pyelonephritis, UTI, flank pain - Lab Data Result diagrams: 02/10/17 11:45 02/10/17 11:45 Lab Results 02/10/17 02/10/17 02/10/17 Range/Units 11:18 11:45 11:45 WBC 13.4 H (3.8-10.6) k/uL RBC 4.42 (3.80-5.40) m/uL Hgb 11.3 L (11.4-16.0) gm/dL Hct 34.3 (34.0-46.0) % MCV 77.6 L (80.0-100.0) fL MCH 25.5 (25.0-35.0) pg MCHC 32.9 (31.0-37.0) g/dL RDW 13.8 (11.5-15.5) % Plt Count 261 (150-450) k/uL Neutrophils % 92 % Lymphocytes % 3 % Monocytes % 4 % Eosinophils % 0 % Basophils % 0 % Neutrophils # 12.3 H (1.3-7.7) k/uL Lymphocytes # 0.5 L (1.0-4.8) k/uL Monocytes # 0.5 (0-1.0) k/uL Eosinophils # 0.0 (0-0.7) k/uL Basophils # 0.0 (0-0.2) k/uL Sodium 138 (137-145) mmol/L Potassium 3.9 (3.5-5.1) mmol/L Chloride 105 (98-107) mmol/L Carbon Dioxide 24 (22-30) mmol/L Anion Gap 9 mmol/L BUN 17 (7-17) mg/dL Creatinine 0.66 (0.52-1.04) mg/dL Est GFR (MDRD) Af Amer >60 (>60 ml/min/1.73 sqM) Est GFR (MDRD) Non-Af >60 (>60 ml/min/1.73 sqM) Glucose 112 H (74-99) mg/dL Plasma Lactic Acid [place] (0.7-2.0) mmol/L Calcium 8.7 (8.4-10.2) mg/dL Total Bilirubin 0.4 (0.2-1.3) mg/dL AST 62 H (14-36) U/L ALT 83 H (9-52) U/L Alkaline Phosphatase 88 (38-126) U/L Total Protein 6.3 (6.3-8.2) g/dL Albumin 3.9 (3.5-5.0) g/dL Amylase 37 (30-110) U/L Lipase 24 (23-300) U/L Urine Color Yellow Urine Appearance Cloudy H (Clear) Urine pH 5.5 (5.0-8.0) Ur Specific [place] 1.014 (1.001-1.035) Urine Protein Trace H (Negative) Urine Glucose (UA) Negative (Negative) Urine Ketones Negative (Negative) Urine Blood Negative (Negative) Urine Nitrite Positive H (Negative) Urine Bilirubin Negative (Negative) Urine Urobilinogen <2.0 (<2.0) mg/dL Ur Leukocyte Esterase Small H (Negative) Urine WBC 14 H (0-5) /hpf Ur Squamous Epith Cells 3 (0-4) /hpf Urine Bacteria Many H (None) /hpf Urine Mucus Rare H (None) /hpf 02/10/17 Range/Units 11:45 WBC (3.8-10.6) k/uL RBC (3.80-5.40) m/uL Hgb (11.4-16.0) gm/dL Hct (34.0-46.0) % MCV (80.0-100.0) fL MCH (25.0-35.0) pg MCHC (31.0-37.0) g/dL RDW (11.5-15.5) % Plt Count (150-450) k/uL Neutrophils % % Lymphocytes % % Monocytes % % Eosinophils % % Basophils % % Neutrophils # (1.3-7.7) k/uL Lymphocytes # (1.0-4.8) k/uL Monocytes # (0-1.0) k/uL Eosinophils # (0-0.7) k/uL Basophils # (0-0.2) k/uL Sodium (137-145) mmol/L Potassium (3.5-5.1) mmol/L Chloride (98-107) mmol/L Carbon Dioxide (22-30) mmol/L Anion Gap mmol/L BUN (7-17) mg/dL Creatinine (0.52-1.04) mg/dL Est GFR (MDRD) Af Amer (>60 ml/min/1.73 sqM) Est GFR (MDRD) Non-Af (>60 ml/min/1.73 sqM) Glucose (74-99) mg/dL Plasma Lactic Acid [place] 1.8 (0.7-2.0) mmol/L Calcium (8.4-10.2) mg/dL Total Bilirubin (0.2-1.3) mg/dL AST (14-36) U/L ALT (9-52) U/L Alkaline Phosphatase (38-126) U/L Total Protein (6.3-8.2) g/dL Albumin (3.5-5.0) g/dL Amylase (30-110) U/L Lipase (23-300) U/L Urine Color Urine Appearance (Clear) Urine pH (5.0-8.0) Ur Specific [place] (1.001-1.035) Urine Protein (Negative) Urine Glucose (UA) (Negative) Urine Ketones (Negative) Urine Blood (Negative) Urine Nitrite (Negative) Urine Bilirubin (Negative) Urine Urobilinogen (<2.0) mg/dL Ur Leukocyte Esterase (Negative) Urine WBC (0-5) /hpf Ur Squamous Epith Cells (0-4) /hpf Urine Bacteria (None) /hpf Urine Mucus (None) /hpf - Radiology Data Radiology results: report reviewed (I did review the imaging and report evidence of fecal stasis no obstruction.), image reviewed Disposition Clinical Impression: Pyelonephritis, Urinary tract infection, Febrile illness, acute, Flank pain Disposition: ADMITTED IP TO THIS [facility] Referrals: Margarita Salcedo DO [Primary Care Provider] - 1-2 days
[2017-02-10 11:58] LABS: Basophils % (A) 0 %; CHCM 32.3; Eosinophils % (A) 0 %; HCT 34.3 % (34.0-46.0); HDW 2.96; HGB 11.3 gm/dL (11.4-16.0); Luc # (Auto) 0.14; Luc % (Auto) 1; Lymphocytes # (A) 0.5 k/uL (1.0-4.8); Lymphocytes % (A) 3 %; MCH 25.5 pg (25.0-35.0); MCHC 32.9 g/dL (31.0-37.0); MCV 77.6 fL (80.0-100.0); Monocytes # (A) 0.5 k/uL (0-1.0); Monocytes % (A) 4 %; Neutrophils # (A) 12.3 k/uL (1.3-7.7); Neutrophils % (A) 92 %; RBC 4.42 m/uL (3.80-5.40); RDW 13.8 % (11.5-15.5); WBC 13.4 k/uL (3.8-10.6); WBC (Perox) 14.09
[2017-02-10 12:06] LABS: ALT 83 U/L (9-52); AST 62 U/L (14-36); Alkaline Phosphatase 88 U/L (38-126); Amylase 37 U/L (30-110); Anion Gap 9 mmol/L; Blood Urea Nitrogen 17 mg/dL (7-17); Calcium 8.7 mg/dL (8.4-10.2); Carbon Dioxide 24 mmol/L (22-30); Chloride 105 mmol/L (98-107); Glucose 112 mg/dL (74-99); Non-African American GFR(MDRD) >60 (>60 ml/min/1.73 sqM); Potassium 3.9 mmol/L (3.5-5.1); Sodium 138 mmol/L (137-145); Total Bilirubin 0.4 mg/dL (0.2-1.3); Total Protein 6.3 g/dL (6.3-8.2)
[2017-02-10 12:16] LABS: Appearance,Urine Cloudy (Clear); Bacteria,Urine Many /hpf; Bilirubin,Urine Negative (Negative); Glucose,Urine (UA) Negative (Negative); Ketones,Urine Negative (Negative); Leukocyte Esterase,Urine Small (Negative); Mucus,Urine Rare /hpf; Nitrite,Urine Positive (Negative); PH, Urine 5.5 (5.0-8.0); Particle Count 15606; Protein,Urine Trace (Negative); Specific Gravity,Urine 1.014 (1.001-1.035); Squamous Epithelial Cell,Urine 3 /hpf (0-4); UA Billing (MACRO vs. MICRO) MICRO; Urobilinogen,Urine <2.0 mg/dL (<2.0); WBC,Urine 14 /hpf (0-5)
--- NOTE | 2017-02-10 13:21 | XR ---
EXAMINATION TYPE: XR chest 2V DATE OF EXAM: 02/10/2017 COMPARISON: Prior chest x-ray 05/09/2014, 01/27/2017 HISTORY: Abdominal pain, right flank pain TECHNIQUE: Frontal and lateral views of the chest are obtained. FINDINGS: There is no focal air space opacity, pleural effusion, or pneumothorax seen. Linear incre ased density present in the left mid lung may reflect atelectasis or scarring. There is eventration o f the right hemidiaphragm. The cardiac silhouette size is stable. Patient is rotated. Surgical clips present in the right upper quadrant. Patient is status post distal left clavicular resection, there may be postop changes to the distal right clavicle, correlate for appropriate surgical history. The o sseous structures are otherwise intact. IMPRESSION: No acute cardiopulmonary process. Additional findings above.
--- NOTE | 2017-02-10 13:25 | XR ---
Abdomen HISTORY: Pain, right upper quadrant pain Frontal view of the abdomen correlated to prior exam CT abdomen pelvis 02/06/2017, acute abdomen serie s 2017 Surgical clips are present in the right upper quadrant. Lung bases are clear. Surgical clips also pre sent at the gastroesophageal junction and within the pelvis. No pneumoperitoneum or bowel obstruction evident. Mild distention transverse colon again noted, there is retained fecal debris. Punctate calc ifications over the left kidney noted measuring only approximately 2 to 3 mm. Probably 2 calcificatio ns present. Correlate for fecal stasis. Postop changes. Left nephrolithiasis.
[2017-02-10] MEDS ORDERED: NALOXONE 0.4 MG/ML 1 ML VIAL IV PRN (15:00)
[2017-02-10] MEDS ORDERED: CLINDAMYCIN 600 MG in DEXTROSE 5% IN WATER 50 ML IVPB STA ×2 (15:00)
[2017-02-10] MEDS ORDERED: ACETAMINOPHEN TAB 325 MG TAB PO PRN (15:00)
[2017-02-10] MEDS ORDERED: ALBUTEROL NEBULIZED 2.5 MG/3 ML INHALATION PRN (15:03)
[2017-02-10] MEDS ORDERED: FUROSEMIDE 20 MG TAB PO PRN (15:03)
[2017-02-10] MEDS ORDERED: DOCUSATE 100 MG CAP PO PRN (15:03)
[2017-02-10] MEDS ORDERED: LORazepam 0.5 MG TAB PO PRN (15:03)
--- NOTE | 2017-02-10 15:48 | US ---
EXAMINATION TYPE: US guide vascular access DATE OF EXAM: 02/10/2017 HISTORY: Needs IV access for antibiotic therapy. PROCEDURE: Maximal barrier technique utilized. The skin overlying the basilic vein was localized with ultrasoun d and the vein was noted to be compressible and patent by ultrasound and ultrasound image was obtaine d and submitted on patient's chart. Under direct ultrasound guidance a 20-gauge Angiocath was advanc ed into the vein and fixed in place. Catheter was aspirated and flushed with sterile saline. Hemost asis achieved. Catheter fixed in place. No immediate complication. IMPRESSION: Ultrasound-guided venipuncture, this procedure performed by the undersigned.
[2017-02-10] MEDS: levETIRAcetam 500 MG TAB PO SCH ×2 (16:45→22:01)
[2017-02-10] MEDS: TOPIRAMATE 100 MG TAB PO SCH ×2 (16:50→22:01)
[2017-02-10] MEDS: HYDROcodone/APAP 10-325MG 1 EACH TAB PO SCH ×2 (18:08→22:01)
[2017-02-10] MEDS: CLINDAMYCIN 300 MG in DEXTROSE 5% IN WATER 50 ML IVPB SCH ×2 (18:09)
[2017-02-10] MEDS: SODIUM CHLORIDE 0.9% 1,000 ML IV SCH (18:10)
[2017-02-10] MEDS: HYDROmorphone 1 MG/ML 1 ML SYRINGE IV PRN (18:52)
[2017-02-10] MEDS: AMITRIPTYLINE HCL 50 MG TAB PO SCH (20:53)
[2017-02-10] MEDS: MORPHINE SULFATE ER 60 MG TABLET PO SCH (20:54)
[2017-02-10] MEDS: METOPROLOL TARTRATE 50 MG TAB PO SCH (20:55)
[2017-02-10] MEDS: PHENYTOIN SODIUM EXTENDED 100 MG CAP PO SCH (20:55)
[2017-02-10] MEDS: CALCIUM CARBONATE 500 MG CHEWABLE PO SCH (20:55)
[2017-02-10] MEDS: QUEtiapine 25 MG TAB PO SCH (20:55)
[2017-02-10] MEDS: LORazepam 1 MG TAB PO SCH (20:56)
[2017-02-11] MEDS: CLINDAMYCIN 300 MG in DEXTROSE 5% IN WATER 50 ML IVPB SCH ×6 (00:08→11:21)
[2017-02-11] MEDS: HYDROmorphone 1 MG/ML 1 ML SYRINGE IV PRN ×7 (00:09→22:12)
[2017-02-11] MEDS: SODIUM CHLORIDE 0.9% 1,000 ML IV SCH ×2 (02:08→10:10)
[2017-02-11] MEDS: LEVOTHYROXINE 75 MCG TAB PO SCH (06:05)
[2017-02-11] MEDS: PANTOPRAZOLE 40 MG TABLET PO SCH (08:33)
[2017-02-11] MEDS: levETIRAcetam 500 MG TAB PO SCH ×3 (10:07→22:12)
[2017-02-11] MEDS: MORPHINE SULFATE ER 60 MG TABLET PO SCH ×2 (10:07→20:36)
[2017-02-11] MEDS: B COMPLEX-VIT C-VIT E-ZINC 1 EACH TAB PO SCH (10:07)
[2017-02-11] MEDS: HYDROcodone/APAP 10-325MG 1 EACH TAB PO SCH ×4 (10:08→23:08)
[2017-02-11] MEDS: CALCIUM CARBONATE 500 MG CHEWABLE PO SCH ×2 (10:09→20:34)
[2017-02-11] MEDS: CLOPIDOGREL 75 MG TAB PO SCH (10:09)
[2017-02-11] MEDS: CHOLECALCIFEROL 1,000 UNIT TAB PO SCH ×2 (10:09→10:18)
[2017-02-11] MEDS: TOPIRAMATE 100 MG TAB PO SCH ×3 (10:09→22:12)
[2017-02-11] MEDS: QUEtiapine 25 MG TAB PO SCH ×2 (10:09→10:15)
[2017-02-11] MEDS: METOPROLOL TARTRATE 50 MG TAB PO SCH ×2 (10:09→20:36)
[2017-02-11] MEDS: amLODIPine 10 MG TAB PO SCH (10:09)
[2017-02-11] MEDS: PHENYTOIN SODIUM EXTENDED 100 MG CAP PO SCH ×2 (10:09→20:37)
[2017-02-11] MEDS: NON-FORMULARY DRUG (Lubiprostone [Amitiza] 24 MCG) PO SCH ×2 (10:13→10:19)
[2017-02-11 10:59] LABS: Anion Gap 8 mmol/L; Blood Urea Nitrogen 14 mg/dL (7-17); Calcium 8.1 mg/dL (8.4-10.2); Carbon Dioxide 23 mmol/L (22-30); Chloride 108 mmol/L (98-107); Glucose 91 mg/dL (74-99); Non-African American GFR(MDRD) >60 (>60 ml/min/1.73 sqM); Potassium 4.1 mmol/L (3.5-5.1); Sodium 139 mmol/L (137-145)
[2017-02-11 11:02] LABS: CH 24.2; CHCM 29.9; HCT 32.2 % (34.0-46.0); HDW 2.81; HGB 10.1 gm/dL (11.4-16.0); Hypochromasia Marked; MCH 25.5 pg (25.0-35.0); MCHC 31.4 g/dL (31.0-37.0); MCV 81.3 fL (80.0-100.0); Mean Platelet Volume 6.8; RBC 3.97 m/uL (3.80-5.40); RDW 13.9 % (11.5-15.5)
[2017-02-11] MEDS: ONDANSETRON 4 MG/2 ML VIAL IVP PRN ×2 (13:43→23:08)
--- NOTE | 2017-02-11 15:14 | P.HPIM ---
History of Present Illness H&P Date: 02/11/17 Chief Complaint: Abdominal pain and flank pain This is 76-year-old female with the multiple abdominal surgeries including a neobladder creation thereafter reversal over 15 years ago comes in to the hospital with the severe abdominal pain. Patient was recently admitted to our service with similar complaints at that time it was thought that it was secondary to urinary retention. Patient also has a history of chronic constipation due to use of pain medications. Patient apparently has mild elevation of lipase at that time it was attribute it to pancreatitis on admission however the internal medicine physician who seemed patient did not think he was clinically consistent with pancreatic otitis At this time patient comes in with right flank pain with some difficulty in urination states that she has urinary urgency at this time Also complains of associated chills and nausea. Patient states that she slightly improved since admission. Denies having any headaches chest pain difficulty breathing. Patient last bowel movement was 5 days ago Review of Systems All systems: negative (Noted in HPI) Past Medical History Past Medical History: CVA/TIA, Diabetes Mellitus, Hyperlipidemia, Hypertension, Pneumonia, Seizure Disorder, Thyroid Disorder Additional Past Medical History / Comment(s): tia,dm but not on meds anymore and no bs checks,per [facility]"past ulcer,hypothyroid, pancreatitis, uti, migraines, diverticulistis,osteroporosis, blood clots. 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- reji shoulder sx, lt knee replacment,hernia repair,bowel resection w/ileostomy since reversed,reji cataract,reji foot sx/ Past Anesthesia/Blood Transfusion Reactions: No Reported Reaction Smoking Status: Never smoker - Past Family History Mother Additional Family Medical History / Comment(s): Brain tumor Brother(s) Additional Family Medical History / Comment(s): Colon Cancer Father Family Medical History: Cancer Additional Family Medical History / Comment(s): Lung cancer Medications and Allergies Home Medications Medication Instructions Recorded Confirmed Type Albuterol Sulfate [Proair Hfa] 1 - 2 puff INHALATION RT-Q6H PRN 05/08/14 History Amitriptyline HCl [Elavil] 150 mg PO HS 05/08/14 02/10/17 History Clopidogrel [Plavix] 75 mg PO DAILY 05/08/14 02/10/17 History Esomeprazole Magnesium [NexIUM] 20 mg PO AC-BRKFST 05/08/14 02/10/17 History Levothyroxine Sodium [Synthroid] 75 mcg PO DAILY 05/08/14 02/10/17 History Topiramate [Topamax] 100 mg PO TID 05/08/14 02/10/17 History HYDROcodone/APAP 10-325MG [[place] 1 tab PO QID 01/29/16 02/10/17 History 10-325] Calcium Carbonate 400mg 400 mg PO BID 01/27/17 02/10/17 History Cholecalciferol [Vitamin D3] 10,000 unit PO DAILY 01/27/17 02/10/17 History Furosemide [Lasix] 20 mg PO DAILY PRN 01/27/17 02/10/17 History LORazepam [Ativan] 0.5 mg PO DAILY PRN 01/27/17 02/10/17 History LORazepam [Ativan] 1 mg PO HS 01/27/17 02/10/17 History Metoprolol Tartrate [Lopressor] 50 mg PO BID 01/27/17 02/10/17 History Morphine Sulfate ER [Ms Contin 60 mg PO Q12HR 01/27/17 02/10/17 History 60Mg] Phenytoin Sodium Extended 200 mg PO BID 01/27/17 02/10/17 History [Dilantin] QUEtiapine [SEROquel] 25 mg PO BID 01/27/17 02/10/17 History Vitamin B Complex 1 cap PO DAILY 01/27/17 02/10/17 History amLODIPine [Norvasc] 10 mg PO DAILY 01/27/17 02/10/17 History levETIRAcetam [Keppra] 500 mg PO TID 01/27/17 02/10/17 History Allergies Allergy/AdvReac Type Severity Reaction Status Date / Time cephalexin [From Keflex] Allergy Unknown Verified 02/10/17 10:25 Cephalosporins Allergy Unknown Verified 02/10/17 10:25 ciprofloxacin [From Cipro] Allergy Rash/Hives Verified 02/10/17 10:25 diazepam [From Valium] Allergy Unknown Verified 02/10/17 10:25 erythromycin base Allergy Unknown Verified 02/10/17 10:25 [Erythromycin Base] ketorolac tromethamine Allergy Unknown Verified 02/10/17 10:25 [From Toradol] Penicillins Allergy Unknown Verified 02/10/17 10:25 pentazocine lactate Allergy Unknown Verified 02/10/17 10:25 [From Talwin] Sulfa (Sulfonamide Allergy Unknown Verified 02/10/17 10:25 Antibiotics) sumatriptan [From Imitrex] Allergy Unknown Verified 02/10/17 10:25 sumatriptan succinate Allergy Unknown Verified 02/10/17 10:25 [From Imitrex] tetracycline [Tetracycline] Allergy Unknown Verified 02/10/17 10:25 vancomycin Allergy Unknown Verified 02/10/17 10:25 levofloxacin [From Levaquin] AdvReac Nausea & Verified 02/10/17 10:25 Vomiting Physical Exam Vitals: Vital Signs Temp Pulse Pulse Resp BP BP Pulse Ox 02/11/17 07:00 96.6 F L 63 16 102/54 94 L 02/10/17 23:00 99.7 F H 67 18 143/70 96 02/10/17 16:00 100.4 F H 91 14 146/80 100 02/10/17 15:29 100.3 F H 02/10/17 15:24 91 17 171/75 99 Intake and Output 02/11/17 02/11/17 02/11/17 06:59 14:59 22:59 Intake Total 200 Balance 200 Intake: Oral 200 Other: # Voids 0 Physical exam Gen. appearance oriented 3 in no distress Neck is supple no JVD Lungs good air entry clear to auscultation no rhonchi or wheezing Heart S1-S2 heard regular rate and rhythm no murmurs appreciated Abdomen distended tympanic to percussion. Previous surgical scars noted right- sided flank pain is noted Neurologically cranial nerves II-12 grossly intact no focal motor or sensory deficits noted Skin no abnormalities appreciated Results CBC & Chem 7: 02/11/17 10:25 02/11/17 10:25 Labs: Abnormal Lab Results - Last 24 Hours (Table) 02/11/17 02/11/17 Range/Units 10:25 10:25 Hgb 10.1 L (11.4-16.0) gm/dL Hct 32.2 L (34.0-46.0) % Chloride 108 H (98-107) mmol/L Calcium 8.1 L (8.4-10.2) mg/dL Microbiology - Last 24 Hours (Table) 02/10/17 11:45 Blood Culture - Preliminary Blood No Growth after 24 hours Thrombosis Risk Factor Assmnt - Choose All That Apply Any of the Below Risk Factors Present?: Yes Each Factor Represents 1 point: Obesity (BMI >25) Other Risk Factors: Yes Each Risk Factor Represents 3 Points: Age 75 years or older Other congenital or acquired thrombophilia - If yes, enter type in comment: No Thrombosis Risk Factor Assessment Total Risk Factor Score: 4 Thrombosis Risk Factor Assessment Level: Moderate Risk Assessment and Plan Plan: #1 acute pyelonephritis #2 diabetes most type II #3 essential hypertension. 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
[2017-02-11] MEDS: AZTREONAM 1 GM in SODIUM CHLORIDE 0.9% 50 ML IVPB SCH (16:01)
[2017-02-11] MEDS: AMITRIPTYLINE HCL 50 MG TAB PO SCH (20:34)
[2017-02-11] MEDS: LORazepam 1 MG TAB PO SCH (20:35)
[2017-02-11] MEDS: LINEZOLID 600 MG in DEXTROSE/WATER 1 300ML.BAG IVPB SCH (22:16)
[2017-02-12] MEDS: AZTREONAM 1 GM in SODIUM CHLORIDE 0.9% 50 ML IVPB SCH ×3 (00:37→15:26)
[2017-02-12] MEDS: POLYETHYLENE GLYCOL 3350 17 GM POWD.PACK PO PRN ×2 (00:37→23:23)
[2017-02-12] MEDS: HYDROmorphone 1 MG/ML 1 ML SYRINGE IV PRN ×6 (00:43→20:55)
[2017-02-12] MEDS: LEVOTHYROXINE 75 MCG TAB PO SCH (06:11)
--- NOTE | 2017-02-12 07:50 | US ---
EXAMINATION TYPE: US abdomen complete DATE OF EXAM: 02/12/2017 COMPARISON: CT CLINICAL HISTORY: distention. ABD pain, distention EXAM MEASUREMENTS: Liver Length: 16.5 cm CBD: 1.3 cm Spleen: 11.7 cm Right Kidney: 10.4 x 3.5 x 3.5 cm Left Kidney: 10.6 x 5.5 x 5.0 cm Pancreas: Obscured by bowel gas Liver: Heterogeneous Gallbladder: Surgically absent Evidence for sonographic Tamez's sign: No CBD: dilated for post cholecystectomy Spleen: wnl Right Kidney: Dilated renal pelvis= 1.6 cm, cortical thinning Left Kidney: No evidence of hydro, possible renal calculi lower pole= 0.7 cm with no significant sha dowing. Upper IVC: wnl Abd Aorta: Proximal portion wnl, mid and distal portions gassed out No evidence of ascites IMPRESSION: 1. Dilated common bile duct at 1.3 cm. Normal is less than 1 cm in a postcholecystectomy patient. 2. Mild right hydronephrosis. 3. Suspected nonobstructing inferior pole left renal stone
[2017-02-12] MEDS: MORPHINE SULFATE ER 60 MG TABLET PO SCH ×2 (09:40→20:56)
[2017-02-12] MEDS: levETIRAcetam 500 MG TAB PO SCH ×3 (09:40→22:21)
[2017-02-12] MEDS: PHENYTOIN SODIUM EXTENDED 100 MG CAP PO SCH ×2 (09:40→20:56)
[2017-02-12] MEDS: HYDROcodone/APAP 10-325MG 1 EACH TAB PO SCH ×4 (09:41→22:22)
[2017-02-12] MEDS: CALCIUM CARBONATE 500 MG CHEWABLE PO SCH ×2 (09:41→20:56)
[2017-02-12] MEDS: PANTOPRAZOLE 40 MG TABLET PO SCH (09:41)
[2017-02-12] MEDS: METOPROLOL TARTRATE 50 MG TAB PO SCH ×2 (09:41→20:56)
[2017-02-12] MEDS: CLOPIDOGREL 75 MG TAB PO SCH (09:41)
[2017-02-12] MEDS: amLODIPine 10 MG TAB PO SCH (09:41)
[2017-02-12] MEDS: B COMPLEX-VIT C-VIT E-ZINC 1 EACH TAB PO SCH (09:41)
[2017-02-12] MEDS: TOPIRAMATE 100 MG TAB PO SCH ×3 (09:41→22:22)
[2017-02-12] MEDS: LINEZOLID 600 MG in DEXTROSE/WATER 1 300ML.BAG IVPB SCH ×2 (10:50→20:57)
--- NOTE | 2017-02-12 19:16 | P.PN ---
Subjective This is 76-year-old female with the multiple abdominal surgeries including a neobladder creation thereafter reversal over 15 years ago comes in to the hospital with the severe abdominal pain. Patient was recently admitted to our service with similar complaints at that time it was thought that it was secondary to urinary retention. Patient also has a history of chronic constipation due to use of pain medications. Patient apparently has mild elevation of lipase at that time it was attribute it to pancreatitis on admission however the internal medicine physician who seemed patient did not think he was clinically consistent with pancreatic otitis At this time patient comes in with right flank pain with some difficulty in urination states that she has urinary urgency at this time Also complains of associated chills and nausea. Patient states that she slightly improved since admission. Denies having any headaches chest pain difficulty breathing. Patient last bowel movement was 5 days ago 01/12/17 had urinary retention terry was placed continues to have abdominal pain dilated CBD is noted Physical exam Gen. appearance oriented 3 in no distress Neck is supple no JVD Lungs good air entry clear to auscultation no rhonchi or wheezing Heart S1-S2 heard regular rate and rhythm no murmurs appreciated Abdomen distended tympanic to percussion. Previous surgical scars noted right- sided flank pain is noted Neurologically cranial nerves II-12 grossly intact no focal motor or sensory deficits noted Skin no abnormalities appreciated Objective - Vital Signs Vital signs: Vital Signs Temp 97.9 F 02/12/17 15:00 Pulse 63 02/12/17 15:00 Resp 16 02/12/17 15:00 BP 122/56 02/12/17 15:00 Pulse Ox 93 L 02/12/17 15:00 Intake & Output 02/12/17 02/12/17 02/13/17 06:59 18:59 06:59 Intake Total 350 Output Total 1225 Balance -1225 350 Intake: Intake, IV Titration 350 Amount Aztreonam 1 gm In Sodium 50 Chloride 0.9% 50 ml @ 100 mls/hr IVPB Q8HR [facility] Rx# :[id number] Linezolid 600 mg In 300 Dextrose/Water 1 300ml. bag @ 150 mls/hr IVPB Q12HR [facility] Rx#:[id number] Output: Urine 1225 Other: Voiding Method Indwelling Catheter Indwelling Catheter - Labs CBC & Chem 7: 02/11/17 10:25 08/19/17 10:25 Labs: Microbiology - Last 24 Hours (Table) 02/10/17 11:45 Blood Culture Gram Stain - Preliminary Blood Blood Culture - Preliminary Coagulase Negative Staph 02/10/17 11:45 Blood Culture - Final Blood Assessment and Plan Plan: #1 acute pyelonephritis #2 diabetes most type II #3 essential hypertension. 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 bilateral hydronephrosis is noted dilated cbd surgical eval for pain continue terry, shld be discharged with terry till seen by urology outpatient
[2017-02-12] MEDS: AMITRIPTYLINE HCL 50 MG TAB PO SCH (20:56)
[2017-02-12] MEDS: LORazepam 1 MG TAB PO SCH (20:56)
[2017-02-12] MEDS: ONDANSETRON 4 MG/2 ML VIAL IVP PRN (22:25)
[2017-02-13] MEDS: AZTREONAM 1 GM in SODIUM CHLORIDE 0.9% 50 ML IVPB SCH ×3 (00:22→16:09)
[2017-02-13] MEDS: HYDROmorphone 1 MG/ML 1 ML SYRINGE IV PRN ×6 (00:27→20:08)
[2017-02-13 03:06] LABS: Appearance,Urine Clear (Clear); Bilirubin,Urine Negative (Negative); Glucose,Urine (UA) Negative (Negative); Ketones,Urine Negative (Negative); Leukocyte Esterase,Urine Trace (Negative); Mucus,Urine Rare /hpf; Nitrite,Urine Negative (Negative); PH, Urine 5.5 (5.0-8.0); Particle Count 584; Protein,Urine Negative (Negative); RBC,Urine 1 /hpf (0-5); UA Billing (MACRO vs. MICRO) MICRO; Urobilinogen,Urine <2.0 mg/dL (<2.0); WBC,Urine 5 /hpf (0-5)
[2017-02-13] MEDS: LEVOTHYROXINE 75 MCG TAB PO SCH (06:10)
[2017-02-13] MEDS: PANTOPRAZOLE 40 MG TABLET PO SCH (07:37)
[2017-02-13] MEDS: PHENYTOIN SODIUM EXTENDED 100 MG CAP PO SCH ×2 (08:43→22:48)
[2017-02-13] MEDS: CALCIUM CARBONATE 500 MG CHEWABLE PO SCH ×2 (08:43→22:48)
[2017-02-13] MEDS: amLODIPine 10 MG TAB PO SCH (08:43)
[2017-02-13] MEDS: B COMPLEX-VIT C-VIT E-ZINC 1 EACH TAB PO SCH (08:43)
[2017-02-13] MEDS: METOPROLOL TARTRATE 50 MG TAB PO SCH ×2 (08:44→22:48)
[2017-02-13] MEDS: TOPIRAMATE 100 MG TAB PO SCH ×3 (08:44→22:48)
[2017-02-13] MEDS: levETIRAcetam 500 MG TAB PO SCH ×3 (08:44→22:48)
[2017-02-13] MEDS: MORPHINE SULFATE ER 60 MG TABLET PO SCH ×2 (08:44→22:48)
[2017-02-13] MEDS: CLOPIDOGREL 75 MG TAB PO SCH (08:44)
[2017-02-13] MEDS: HYDROcodone/APAP 10-325MG 1 EACH TAB PO SCH ×4 (08:44→22:48)
--- NOTE | 2017-02-13 11:56 | CONS ---
DATE OF CONSULTATION: 02/12/2017 REASON FOR CONSULTATION: Positive blood culture and urinary tract infection. HISTORY OF PRESENT ILLNESS: The patient is a 76-year-old female who presented to the ER at [facility] on 02/10/2017 in the morning with chief complaints of fever, nausea and vomiting and pain in the right flank area. The patient apparently was also complaining of decreased urine output and foul smelling urine. Pain described to be sharp, right flank radiating to the anterior area with intensity about 5 to 6 out of 10 and no radiation. With these symptoms, the patient has been evaluated by the ER physician where the patient did have fever of 101.1 degrees. The patient did have elevated white count 13.4 and a positive UA. The patient did have blood and urine cultures done with blood culture now showing gram positive cocci. The patient has been treated with Aztreonam and ( ) because of her multiple antibiotic allergies, ID was consulted for further recommendation. The patient also had an ultrasound of the abdomen that did show direct CBD post cholecystectomy and right sided hydronephrosis. REVIEW OF SYSTEMS: Constitutional: Positive for weakness along with fever. EYES: No complaint. HEENT: No complaint. Respiratory: No complaint. Cardiovascular: No complaint. : As per HPI. Gastrointestinal: As per history of present illness. Musculoskeletal: No complaint. Integumentary: No complaint. Psychological: No complaint. Endocrine: No complaint. Neurological: No complaint. Past medical history significant for hypertension, hyperlipidemia, MRSA right arm infection, diabetes mellitus, recurrent urinary tract infection, pancreatitis, anxiety. Past surgical history: Appendectomy, cholecystectomy, hysterectomy and tonsillectomy. SOCIAL HISTORY: No history of smoking, drinking or drug use. FAMILY HISTORY: Mother has history of brain cancer. Father with history of lung cancer. ALLERGIES: MULTIPLE ANTIBIOTIC ALLERGIES LISTED ON THE CHART. They were reviewed. Medications include the patient is currently on: 1. Tylenol. 2. Perry. 3. Ventolin. 4. Elavil. 5. Norvasc. 6. ( ). 7. TUMS. 8. Plavix. 9. Colace. 10. Lasix. 11. Zyvox. On examination, blood pressure is 152/56 with a pulse of 63. Temperature 97.9. She is 93% on room air. General description is an elderly female lying in bed, in no distress. No tachypnea or accessory muscles of respiration use. HEENT: Examination shows pallor and no scleral icterus. Oral mucosa membranes dry. NECK: Trachea is central. No thyromegaly. LUNGS: Unlabored breathing. Clear to auscultation anteriorly. No wheeze or crackles. HEART: S1, S2 regular rate and rhythm. ABDOMEN: Soft. No tenderness. No guarding and no rigidity. EXTREMITIES: No edema of the feet. SKIN: No rash or mass palpable. NEUROLOGICALLY: The patient is awake, alert and oriented times three. Mood and affect normal. LABS: Hemoglobin 10.1, white count 6.0, admission white count 13.4. BUN 14, creatinine 0.70. Urine has been positive with small leukocyte esterase, 14 WBC. Cultures showing gram negative. Cultures pending. Blood culture has been negative so far. DIAGNOSTIC IMPRESSION AND PLAN: 1. The patient admitted to the hospital with sepsis with fever, elevated white count, source likely urine in a patient who did have positive UA and ( ) likely from gram negative pathogen. 2. The patient with positive blood culture with Coag negative Staph, likely skin contamination as the patient does not have any ( ) to go along with it. 3. The patient does have MULTIPLE ANTIBIOTIC ALLERGIES that does limit the number of antibiotics that can be safely used. PLAN: 1. Blood cultures are repeated to make sure no evidence of any persistent bacteremia. 2. Discontinue the Zyvox as the possible ( ) contamination. 3. Obtain urine cultures. Unfortunately no cultures were done in a patient who was admitted to the hospital with pyelonephritis. 4. The patient to continue Aztreonam while waiting for the cultures to finalize. Thank you for this consultation. We will follow this patient along with you. However, in view of the patient with MULTIPLE ANTIBIOTICS ALLERGIES, no oral options are available, she will likely need a PICC line for outpatient antibiotic therapy. MARS
--- NOTE | 2017-02-13 15:55 | P.PN ---
Subjective This is 76-year-old female with the multiple abdominal surgeries including a neobladder creation thereafter reversal over 15 years ago comes in to the hospital with the severe abdominal pain. Patient was recently admitted to our service with similar complaints at that time it was thought that it was secondary to urinary retention. Patient also has a history of chronic constipation due to use of pain medications. Patient apparently has mild elevation of lipase at that time it was attribute it to pancreatitis on admission however the internal medicine physician who seemed patient did not think he was clinically consistent with pancreatic otitis At this time patient comes in with right flank pain with some difficulty in urination states that she has urinary urgency at this time Also complains of associated chills and nausea. Patient states that she slightly improved since admission. Denies having any headaches chest pain difficulty breathing. Patient last bowel movement was 5 days ago 01/12/17 had urinary retention terry was placed continues to have abdominal pain dilated CBD is noted 01/13/2017 Continues to have abdominal pain. Predominantly in the left flank radiating to her groin. Also states to have mid abdominal pain radiating to her back. This appears to be more of a chronic nature No fevers chills headaches blurry vision chest pain difficulty breathing is reported. Physical exam Gen. appearance oriented 3 in no distress Neck is supple no JVD Lungs good air entry clear to auscultation no rhonchi or wheezing Heart S1-S2 heard regular rate and rhythm no murmurs appreciated Abdomen distended tympanic to percussion. Previous surgical scars noted right- sided flank pain is noted Neurologically cranial nerves II-12 grossly intact no focal motor or sensory deficits noted Skin no abnormalities appreciated Objective - Vital Signs Vital signs: Vital Signs Temp 98.7 F 02/13/17 15:00 Pulse 57 L 02/13/17 15:00 Resp 18 02/13/17 15:00 BP 104/52 02/13/17 15:00 Pulse Ox 93 L 02/13/17 15:00 Intake & Output 02/12/17 02/13/17 02/13/17 18:59 06:59 18:59 Intake Total 350 525 240 Output Total 600 Balance 350 -75 240 Intake: Intake, IV Titration 350 Amount Aztreonam 1 gm In Sodium 50 Chloride 0.9% 50 ml @ 100 mls/hr IVPB Q8HR [facility] Rx# :[id number] Linezolid 600 mg In 300 Dextrose/Water 1 300ml. bag @ 150 mls/hr IVPB Q12HR [facility] Rx#:[id number] Oral 525 240 Output: Urine 600 Other: Voiding Method Indwelling Catheter Indwelling Catheter Indwelling Catheter # Voids 2 # Bowel Movements 0 - Labs CBC & Chem 7: 02/11/17 10:25 02/11/17 10:25 Labs: Abnormal Lab Results - Last 24 Hours (Table) 02/12/17 Range/Units 03:00 Ur Leukocyte Esterase Trace H (Negative) Urine Mucus Rare H (None) /hpf Microbiology - Last 24 Hours (Table) 02/12/17 03:00 Urine Culture - Preliminary Urine,Catheterized 02/10/17 11:45 Blood Culture Gram Stain - Preliminary Blood Blood Culture - Preliminary Coagulase Negative Staph Assessment and Plan Plan: #1 acute pyelonephritis #2 diabetes most type II #3 essential hypertension. 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 bilateral hydronephrosis is noted dilated cbd MRI with and without contrast If abnormal GI will be consulted Urology consultation will be obtained
--- NOTE | 2017-02-13 16:30 | P.GSCN ---
<Sarah Huynh - Last Filed: 02/13/17 16:25> History of Present Illness Consult date: 02/13/17 Reason for Consult: Abdominal pain History of present illness: 76-year-old female being seen at the request of the attending for surgical eval who presented to the emergency room with a chief complaint of developing persistent abdominal pain onset several weeks prior with right flank pain. Patient reports at home she had been febrile noted a foul smell to the urine. Patient stated that her abdomen had gotten more distended she felt more nauseated is having frequent stools. Patient did have a ultrasound of the abdomen showed mild right hydronephrosis suspect non-obstructing inferior pole left renal stone the ultrasound of the abdomen did show direct common bile duct postcholecystectomy analysis on admission suggest a UTI. Amylase and lipase were not elevated. Patient did develop on the urinary retention indwelling catheter was placed Patient does have a past surgical history of an appendectomy, cholecystectomy, tonsillectomy, hysterectomy. Review of Systems Sensory unremarkable except as mentioned in the present illness Past Medical History Past Medical History: CVA/TIA, Diabetes Mellitus, Hyperlipidemia, Hypertension, Pneumonia, Seizure Disorder, Thyroid Disorder Additional Past Medical History / Comment(s): tia,dm but not on meds anymore and no bs checks,per [facility]"past ulcer,hypothyroid, pancreatitis, uti, migraines, diverticulistis,osteroporosis, blood clots. 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 per [facility] from 2011- reji shoulder sx, lt knee replacment,hernia repair,bowel resection w/ileostomy since reversed,reji cataract,reji foot sx/ Past Anesthesia/Blood Transfusion Reactions: No Reported Reaction Smoking Status: Never smoker - Past Family History Mother Additional Family Medical History / Comment(s): Brain tumor Brother(s) Additional Family Medical History / Comment(s): Colon Cancer Father Family Medical History: Cancer Additional Family Medical History / Comment(s): Lung cancer Medications and Allergies Home Medications Medication Instructions Recorded Confirmed Type Albuterol Sulfate [Proair Hfa] 1 - 2 puff INHALATION RT-Q6H PRN 05/08/14 History Amitriptyline HCl [Elavil] 150 mg PO HS 05/08/14 02/10/17 History Clopidogrel [Plavix] 75 mg PO DAILY 05/08/14 02/10/17 History Levothyroxine Sodium [Synthroid] 75 mcg PO DAILY 05/08/14 02/10/17 History Topiramate [Topamax] 100 mg PO TID 05/08/14 02/10/17 History HYDROcodone/APAP 10-325MG [[place] 1 tab PO QID 01/29/16 02/10/17 History 10-325] Calcium Carbonate 400mg 400 mg PO BID 01/27/17 02/10/17 History Furosemide [Lasix] 20 mg PO DAILY PRN 01/27/17 02/10/17 History LORazepam [Ativan] 0.5 mg PO DAILY PRN 01/27/17 02/10/17 History LORazepam [Ativan] 1 mg PO HS 01/27/17 02/10/17 History Metoprolol Tartrate [Lopressor] 50 mg PO BID 01/27/17 02/10/17 History Morphine Sulfate ER [Ms Contin] 60 mg PO Q12HR 01/27/17 02/10/17 History Phenytoin Sodium Extended 200 mg PO BID 01/27/17 02/10/17 History [Dilantin] Vitamin B Complex 1 cap PO DAILY 01/27/17 02/10/17 History amLODIPine [Norvasc] 10 mg PO DAILY 01/27/17 02/10/17 History levETIRAcetam [Keppra] 500 mg PO TID 01/27/17 02/10/17 History Allergies Allergy/AdvReac Type Severity Reaction Status Date / Time cephalexin [From Keflex] Allergy Unknown Verified 02/10/17 10:25 Cephalosporins Allergy Unknown Verified 02/10/17 10:25 ciprofloxacin [From Cipro] Allergy Rash/Hives Verified 02/10/17 10:25 diazepam [From Valium] Allergy Unknown Verified 02/10/17 10:25 erythromycin base Allergy Unknown Verified 02/10/17 10:25 [Erythromycin Base] ketorolac tromethamine Allergy Unknown Verified 02/10/17 10:25 [From Toradol] Penicillins Allergy Unknown Verified 02/10/17 10:25 pentazocine lactate Allergy Unknown Verified 02/10/17 10:25 [From Talwin] Sulfa (Sulfonamide Allergy Unknown Verified 02/10/17 10:25 Antibiotics) sumatriptan [From Imitrex] Allergy Unknown Verified 02/10/17 10:25 sumatriptan succinate Allergy Unknown Verified 02/10/17 10:25 [From Imitrex] tetracycline [Tetracycline] Allergy Unknown Verified 02/10/17 10:25 vancomycin Allergy Unknown Verified 02/10/17 10:25 levofloxacin [From Levaquin] AdvReac Nausea & Verified 02/10/17 10:25 Vomiting Surgical - Exam Vital Signs Temp Pulse Resp BP Pulse Ox 101.1 F H 112 H 20 138/84 100 02/10/17 09:53 02/10/17 09:53 02/10/17 09:53 02/10/17 09:53 02/10/17 09:53 GENERAL APPEARANCE: 76-year-old female patient is alert, oriented, in no acute distress. VITAL SIGNS: Reviewed HEENT: Head is normocephalic and atraumatic. Pupils are equal and reactive. The nares are patent. Oropharynx is clear without lesions. NECK: Supple without lymphadenopathy. Traches midline. HEART: S1, S2. Regular rate and rhythm. LUNGS: No crackles or wheezes are heard. ABDOMEN: Soft, nontender, nondistended with good bowel sounds. No peritoneal signs. No palpable organomegaly or masses. Indwelling Alexis catheter in place EXTREMITIES: Normal skin color and turgor. No cyanosis, rash, ulceration, clubbing or edema. Radial pedal pulses are 2/4 bilaterally. NEUROLOGICAL: No focal deficits. Strength and sensation are grossly intact. Results - Labs 02/11/17 10:25 02/11/17 10:25 Abnormal Lab Results - Last 24 Hours (Table) 02/12/17 Range/Units 03:00 Ur Leukocyte Esterase Trace H (Negative) Urine Mucus Rare H (None) /hpf Microbiology - Last 24 Hours (Table) 02/12/17 03:00 Urine Culture - Preliminary Urine,Catheterized 02/10/17 11:45 Blood Culture Gram Stain - Preliminary Blood Blood Culture - Preliminary Coagulase Negative Staph Assessment and Plan Plan: Impression Present on admission fever nausea vomiting right flank pain suspect due to pyelonephritis Urinary retention necessitating the need for an indwelling Alexis catheter Anemia unknown etiology Chronic lower back pain History of bladder cancer in situ history of a seizure disorder Type 2 diabetes Hypertension essential Plan No surgical intervention at this time no acute abdomen Further surgical recommendations per clinical course Recommended GI eval if MRCP is abnormal Resume home meds as appropriate Continue with medical management defer to Thank you for allowing us to participate in the surgical management of your patient The above impression and plan of care have been discussed and directed by signing physician. Sarah Huynh nurse practitioner acting as scribe for signing physician. <Hailee Norman N - Last Filed: 02/15/17 17:56> Surgical - Exam Vital Signs Temp Pulse Resp BP Pulse Ox 101.1 F H 112 H 20 138/84 100 02/10/17 09:53 02/10/17 09:53 02/10/17 09:53 02/10/17 09:53 02/10/17 09:53 Results - Labs 02/15/17 08:50 02/15/17 08:50 Abnormal Lab Results - Last 24 Hours (Table) 02/15/17 Range/Units 08:50 Potassium 5.2 H (3.5-5.1) mmol/L Chloride 108 H (98-107) mmol/L Glucose 141 H (74-99) mg/dL Total Protein 5.5 L (6.3-8.2) g/dL Albumin 3.2 L (3.5-5.0) g/dL Microbiology - Last 24 Hours (Table) 02/12/17 16:15 Blood Culture - Preliminary Blood No Growth after 48 hours Diabetes panel 02/15/17 Range/Units 08:50 Sodium 140 (137-145) mmol/L Potassium 5.2 H (3.5-5.1) mmol/L Chloride 108 H (98-107) mmol/L Carbon Dioxide 23 (22-30) mmol/L BUN 17 (7-17) mg/dL Creatinine 0.80 (0.52-1.04) mg/dL Glucose 141 H (74-99) mg/dL Calcium 8.7 (8.4-10.2) mg/dL AST 29 (14-36) U/L ALT 50 (9-52) U/L Alkaline Phosphatase 93 (38-126) U/L Total Protein 5.5 L (6.3-8.2) g/dL Albumin 3.2 L (3.5-5.0) g/dL Calcium panel 02/15/17 Range/Units 08:50 Calcium 8.7 (8.4-10.2) mg/dL Albumin 3.2 L (3.5-5.0) g/dL Pituitary panel 02/15/17 Range/Units 08:50 Sodium 140 (137-145) mmol/L Potassium 5.2 H (3.5-5.1) mmol/L Chloride 108 H (98-107) mmol/L Carbon Dioxide 23 (22-30) mmol/L BUN 17 (7-17) mg/dL Creatinine 0.80 (0.52-1.04) mg/dL Glucose 141 H (74-99) mg/dL Calcium 8.7 (8.4-10.2) mg/dL Adrenal panel 02/15/17 Range/Units 08:50 Sodium 140 (137-145) mmol/L Potassium 5.2 H (3.5-5.1) mmol/L Chloride 108 H (98-107) mmol/L Carbon Dioxide 23 (22-30) mmol/L BUN 17 (7-17) mg/dL Creatinine 0.80 (0.52-1.04) mg/dL Glucose 141 H (74-99) mg/dL Calcium 8.7 (8.4-10.2) mg/dL Total Bilirubin 0.2 (0.2-1.3) mg/dL AST 29 (14-36) U/L ALT 50 (9-52) U/L Alkaline Phosphatase 93 (38-126) U/L Total Protein 5.5 L (6.3-8.2) g/dL Albumin 3.2 L (3.5-5.0) g/dL Assessment and Plan Plan: Patient seen and evaluated with ELECTRICAL CONTROLS DESIGNER. Patient is tolerating diet. May benefit from GI consultation however MRCP is recommended. At this time, no surgical intervention.
[2017-02-13] MEDS: AMITRIPTYLINE HCL 50 MG TAB PO SCH (22:42)
[2017-02-13] MEDS: LORazepam 1 MG TAB PO SCH (22:48)
[2017-02-14] MEDS: AZTREONAM 1 GM in SODIUM CHLORIDE 0.9% 50 ML IVPB SCH ×4 (00:13→23:19)
[2017-02-14] MEDS: LEVOTHYROXINE 75 MCG TAB PO SCH (06:37)
[2017-02-14] MEDS: HYDROmorphone 1 MG/ML 1 ML SYRINGE IV PRN ×3 (06:37→13:07)
[2017-02-14] MEDS: levETIRAcetam 500 MG TAB PO SCH ×3 (07:40→20:27)
[2017-02-14] MEDS: amLODIPine 10 MG TAB PO SCH (07:40)
[2017-02-14] MEDS: PANTOPRAZOLE 40 MG TABLET PO SCH (07:41)
[2017-02-14] MEDS: PHENYTOIN SODIUM EXTENDED 100 MG CAP PO SCH ×2 (07:41→20:26)
[2017-02-14] MEDS: B COMPLEX-VIT C-VIT E-ZINC 1 EACH TAB PO SCH (07:41)
[2017-02-14] MEDS: CALCIUM CARBONATE 500 MG CHEWABLE PO SCH ×2 (07:41→20:25)
[2017-02-14] MEDS: TOPIRAMATE 100 MG TAB PO SCH ×3 (07:41→20:27)
[2017-02-14] MEDS: METOPROLOL TARTRATE 50 MG TAB PO SCH ×2 (07:41→20:25)
[2017-02-14] MEDS: CLOPIDOGREL 75 MG TAB PO SCH (07:41)
[2017-02-14] MEDS: MORPHINE SULFATE ER 60 MG TABLET PO SCH ×2 (07:42→20:25)
[2017-02-14] MEDS: HYDROcodone/APAP 10-325MG 1 EACH TAB PO SCH ×4 (07:43→21:27)
--- NOTE | 2017-02-14 09:59 | P.PN ---
Progress Note - Text Patient seen and evaluated. Highly recommend GI consultation as this is persistent abnormality and cause of abdominal pain.
--- NOTE | 2017-02-14 11:11 | CONS ---
DATE OF SERVICE: 02/13/2017 REASON FOR FOLLOW UP: 1. Urinary tract infection. 2. Positive blood culture likely contamination. INTERVAL HISTORY: The patient is afebrile. The patients abdominal pain has improved. Still has some pain in the left leg area. Patient denies significant chest pain or shortness of breath or cough. No diarrhea. On examination: Blood pressure 104/52 with pulse 57. Temperature 98.7. She is 93% on room air. General description is an elderly female lying in bed in no distress. RESPIRATORY: Unlabored breathing. Clear to auscultation anteriorly. HEART: S1, S2 regular rate and rhythm. ABDOMEN: Soft, no tenderness. LABS: Hemoglobin is 10.1, white count 6.0. BUN 14, creatinine 0.70. Urinary culture current pending. DIAGNOSTIC IMPRESSION AND PLAN: 1. Patient admitted to the hospital with a fever and did have right-sided flank pain with slight hydronephrosis and significant positive urinalysis likely representing urinary tract infection. Unfortunately urine cultures were not done on admission. We did order this morning, which is current pending. She will continue on Azactam to cover for multiple antibiotic allergies and the patient responded to this antibiotic. 2. Possible blood culture with coagulase negative staph likely skin contamination. Repeat blood culture negative. No need for therapy for the same. MTDD
--- NOTE | 2017-02-14 13:19 | P.PN ---
Subjective This is 76-year-old female with the multiple abdominal surgeries including a neobladder creation thereafter reversal over 15 years ago comes in to the hospital with the severe abdominal pain. Patient was recently admitted to our service with similar complaints at that time it was thought that it was secondary to urinary retention. Patient also has a history of chronic constipation due to use of pain medications. Patient apparently has mild elevation of lipase at that time it was attribute it to pancreatitis on admission however the internal medicine physician who seemed patient did not think he was clinically consistent with pancreatic otitis At this time patient comes in with right flank pain with some difficulty in urination states that she has urinary urgency at this time Also complains of associated chills and nausea. Patient states that she slightly improved since admission. Denies having any headaches chest pain difficulty breathing. Patient last bowel movement was 5 days ago 01/12/17 had urinary retention terry was placed continues to have abdominal pain dilated CBD is noted 01/13/2017 Continues to have abdominal pain. Predominantly in the left flank radiating to her groin. Also states to have mid abdominal pain radiating to her back. This appears to be more of a chronic nature 01/14/2017 No fevers chills headaches blurry vision chest pain difficulty breathing is reported. Physical exam Gen. appearance oriented 3 in no distress Neck is supple no JVD Lungs good air entry clear to auscultation no rhonchi or wheezing Heart S1-S2 heard regular rate and rhythm no murmurs appreciated Abdomen distended tympanic to percussion. Previous surgical scars noted right- sided flank pain is noted Neurologically cranial nerves II-12 grossly intact no focal motor or sensory deficits noted Skin no abnormalities appreciated Objective - Vital Signs Vital signs: Vital Signs Temp 98.1 F 02/14/17 07:00 Pulse 60 02/14/17 07:00 Resp 18 02/14/17 07:00 BP 116/68 02/14/17 07:00 Pulse Ox 94 L 02/14/17 07:00 Intake & Output 02/13/17 02/14/17 02/14/17 18:59 06:59 18:59 Intake Total 240 800 Output Total 650 Balance 240 150 Intake: Oral 240 800 Output: Urine 650 Other: Voiding Method Indwelling Catheter Indwelling Catheter Indwelling Catheter # Voids 2 0 # Bowel Movements 0 - Labs CBC & Chem 7: 02/11/17 10:25 02/11/17 10:25 Labs: Microbiology - Last 24 Hours (Table) 02/10/17 11:45 Blood Culture Gram Stain - Final Blood Blood Culture - Final Staph hominis sub sp. hominis 02/12/17 16:15 Blood Culture - Preliminary Blood No Growth after 24 hours 02/12/17 03:00 Urine Culture - Preliminary Urine,Catheterized Assessment and Plan Plan: #1 acute pyelonephritis #2 diabetes most type II #3 essential hypertension. #4 fibromyalgia #5 chronic low back pain #6 history of seizure disorder #Anemia of unknown etiology #8 history of bladder carcinoma in situ bacteremia staph hominis Plan We'll continue with the IV antibiotic We'll obtain ultrasound of the abdomen bowel regimen to be restarted. bilateral hydronephrosis is noted dilated cbd MRI with and without contrast If abnormal GI will be consulted Urology consultation Bowel regimen
--- NOTE | 2017-02-14 14:42 | P.PN ---
<Sarah Huynh - Last Filed: 02/14/17 14:20> Subjective 76-year-old female being seen this morning diminished report having abdominal pain. Patient is a poor historian difficult to have patient verbalized where the discomfort is. Patient is sitting up taking a diet no fever no nausea no vomiting does have an indwelling Alexis catheter for an episode of urinary retention that persist Objective - Vital Signs Vital signs: Vital Signs Temp 98.1 F 02/14/17 07:00 Pulse 60 02/14/17 07:00 Resp 18 02/14/17 07:00 BP 116/68 02/14/17 07:00 Pulse Ox 94 L 02/14/17 07:00 Intake & Output 02/13/17 02/14/17 02/14/17 18:59 06:59 18:59 Intake Total 240 800 Output Total 650 Balance 240 150 Intake: Oral 240 800 Output: Urine 650 Other: Voiding Method Indwelling Catheter Indwelling Catheter Indwelling Catheter # Voids 2 0 # Bowel Movements 0 - Exam Physical exam 76-year-old female sitting up in bed taking a diet appears in no acute distress Lungs are essentially clear sats are 94% on room air no cough noted Heart S1-S2 audible and regular Abdomen slightly distended indwelling Alexis catheter in place. Does have previous well-healed surgical scars noted on the right flank area bowel sounds present no stool no reports of nausea vomiting Extremities no edema noted - Labs CBC & Chem 7: 02/11/17 10:25 02/11/17 10:25 Labs: Microbiology - Last 24 Hours (Table) 02/12/17 03:00 Urine Culture - Final Urine,Catheterized 02/10/17 11:45 Blood Culture Gram Stain - Final Blood Blood Culture - Final Staph hominis sub sp. hominis 02/12/17 16:15 Blood Culture - Preliminary Blood No Growth after 24 hours Assessment and Plan Plan: Impression Present on admission fever nausea vomiting right flank pain suspect due to pyelonephritis Urinary retention necessitating the need for an indwelling Alexis catheter Anemia unknown etiology Chronic lower back pain History of bladder cancer in situ history of a seizure disorder Type 2 diabetes Hypertension essential Leukocytosis improving Plan No surgical intervention at this time no acute abdomen Further surgical recommendations per clinical course Recommended GI eval if MRCP is abnormal Resume home meds as appropriate Continue with medical management defer to The above impression and plan of care have been discussed and directed by signing physician. Sarah Huynh nurse practitioner acting as scribe for signing physician. <Hailee Norman N - Last Filed: 02/15/17 17:59> Objective - Vital Signs Vital signs: Vital Signs Temp 97.6 F 02/15/17 07:00 Pulse 54 L 02/15/17 07:00 Resp 16 02/15/17 07:00 BP 114/50 02/15/17 07:00 Pulse Ox 98 02/15/17 07:00 Intake & Output 02/14/17 02/15/17 02/15/17 18:59 06:59 18:59 Intake Total 50 Output Total 525 1500 Balance -525 -1450 Intake: Intake, IV Titration 50 Amount Aztreonam 1 gm In Sodium 50 Chloride 0.9% 50 ml @ 100 mls/hr IVPB Q8HR [facility] Rx# :[id number] Output: Urine 525 1500 Other: Voiding Method Indwelling Catheter Indwelling Catheter Indwelling Catheter # Voids 1 - Exam GENERAL: Well developed and in no acute distress. Pleasant. HEENT: No sclera icterus. Extraocular movements grossly intact. Moist buccal mucosa. Head is atraumatic, normocephalic. Hears conversational speech. No nasal drainage. NECK: Supple without lymphadenopathy. CHEST: Non-labored respirations and equal bilateral excursions. CARDIOVASCULAR: Regular rate and rhythm. Palpable 2+ radial pulses. ABDOMEN: Soft, minimal tenderness along the right upper quadrant. MUSCULOSKELETAL: No clubbing, cyanosis or edema. NEUROLOGIC: No focal or lateralizing signs. Cranial nerves II-12 intact. PSYCH: Appropriate affect. Alert and oriented to person, place and time. SKIN: Good skin turgor. Will perfused. - Labs CBC & Chem 7: 02/15/17 08:50 02/15/17 08:50 Labs: Abnormal Lab Results - Last 24 Hours (Table) 02/15/17 Range/Units 08:50 Potassium 5.2 H (3.5-5.1) mmol/L Chloride 108 H (98-107) mmol/L Glucose 141 H (74-99) mg/dL Total Protein 5.5 L (6.3-8.2) g/dL Albumin 3.2 L (3.5-5.0) g/dL Microbiology - Last 24 Hours (Table) 02/12/17 16:15 Blood Culture - Preliminary Blood No Growth after 48 hours Assessment and Plan Plan: Patient seen and evaluated with WET PROCESS TECHNICIAN. Clinically, patient's abdominal pain has been chronic and not acute in nature. At this time, still pending MRCP. She may benefit from GI evaluation as well.
--- NOTE | 2017-02-14 17:45 | MR ---
MRCP HISTORY: Dilated common bile duct, pain and nausea Multiplanar multisequence imaging through the biliary system, three-dimensional reconstructions perfo rmed. Correlation to prior CT scan abdomen and pelvis 01/27/2017 There is motion on the exam. Signal drop within the liver on out of phase imaging is compatible with hepatic steatosis. The spleen is enlarged. Patient is post cholecystectomy. Postop changes are noted to the stomach. The heart antonia ears enlarged. Collecting systems within the kidneys are dilated as on CT. The biliary system is dilated likely due to postcholecystectomy change. There is no filling defect to suggest retained stone. There is a portion of the small bowel which is immediately apposed to the in ferior margin of the liver 02/13/2017 surgical site possibly due to postoperative adhesion. IMPRESSION: Dilated common bile duct, central hepatic ducts as noted on CT. Postop changes as describ ed. Bilateral hydronephrosis. Hepatic steatosis and splenomegaly.
--- NOTE | 2017-02-14 19:18 | P.GSCN ---
History of Present Illness Consult date: 02/14/17 Reason for Consult: Hydronephrosis, urinary retention Requesting physician: Brenton Anthony History of present illness: This patient was seen during a hospitalization in 2011. A CT scan at that time showed left renal pelvic fullness as well as moderate right hydroureteronephrosis. The CT scan at that time suggested bladder distension; a cystogram was considered but it appears not to have been done. Her urologic history is significant for having undergone urinary diversion in the 1970s because of recurrent UTIs. She underwent undiversion 1 year later. She has self-catheterized in the past. She is now admitted with abdominal and right flank discomfort. She states that her urine has been malodorous. A Alexis catheter was placed in the ER with a return of >999 cc of urine. The Alexis remains in place. Review of Systems - Constitutional Reports chills, Reports fever - Respiratory Reports dyspnea - Gastrointestinal Reports nausea - Genitourinary Genitourinary: Denies hematuria Past Medical History Past Medical History: CVA/TIA, Diabetes Mellitus, Hyperlipidemia, Hypertension, Pneumonia, Seizure Disorder, Thyroid Disorder Additional Past Medical History / Comment(s): tia,dm but not on meds anymore and no bs checks,per pmh"past ulcer,hypothyroid, pancreatitis, uti, migraines, diverticulistis,osteroporosis, blood clots. 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 per pmh from 2011- reji shoulder sx, lt knee replacment,hernia repair,bowel resection w/ileostomy since reversed,reji cataract,reji foot sx/ Past Anesthesia/Blood Transfusion Reactions: No Reported Reaction Smoking Status: Never smoker - Past Family History Mother Additional Family Medical History / Comment(s): Brain tumor Brother(s) Additional Family Medical History / Comment(s): Colon Cancer Father Family Medical History: Cancer Additional Family Medical History / Comment(s): Lung cancer Medications and Allergies Home Medications Medication Instructions Recorded Confirmed Type Albuterol Sulfate [Proair Hfa] 1 - 2 puff INHALATION RT-Q6H PRN 05/08/14 History Amitriptyline HCl [Elavil] 150 mg PO HS 05/08/14 02/10/17 History Clopidogrel [Plavix] 75 mg PO DAILY 05/08/14 02/10/17 History Esomeprazole Magnesium [NexIUM] 20 mg PO AC-BRKFST 05/08/14 02/10/17 History Levothyroxine Sodium [Synthroid] 75 mcg PO DAILY 05/08/14 02/10/17 History Topiramate [Topamax] 100 mg PO TID 05/08/14 02/10/17 History HYDROcodone/APAP 10-325MG [[place] 1 tab PO QID 01/29/16 02/10/17 History 10-325] Calcium Carbonate 400mg 400 mg PO BID 01/27/17 02/10/17 History Furosemide [Lasix] 20 mg PO DAILY PRN 01/27/17 02/10/17 History LORazepam [Ativan] 0.5 mg PO DAILY PRN 01/27/17 02/10/17 History LORazepam [Ativan] 1 mg PO HS 01/27/17 02/10/17 History Metoprolol Tartrate [Lopressor] 50 mg PO BID 01/27/17 02/10/17 History Morphine Sulfate ER [Ms Contin 60 mg PO Q12HR 01/27/17 02/10/17 History 60Mg] Phenytoin Sodium Extended 200 mg PO BID 01/27/17 02/10/17 History [Dilantin] Vitamin B Complex 1 cap PO DAILY 01/27/17 02/10/17 History amLODIPine [Norvasc] 10 mg PO DAILY 01/27/17 02/10/17 History levETIRAcetam [Keppra] 500 mg PO TID 01/27/17 02/10/17 History Allergies Allergy/AdvReac Type Severity Reaction Status Date / Time cephalexin [From Keflex] Allergy Unknown Verified 02/10/17 10:25 Cephalosporins Allergy Unknown Verified 02/10/17 10:25 ciprofloxacin [From Cipro] Allergy Rash/Hives Verified 02/10/17 10:25 diazepam [From Valium] Allergy Unknown Verified 02/10/17 10:25 erythromycin base Allergy Unknown Verified 02/10/17 10:25 [Erythromycin Base] ketorolac tromethamine Allergy Unknown Verified 02/10/17 10:25 [From Toradol] Penicillins Allergy Unknown Verified 02/10/17 10:25 pentazocine lactate Allergy Unknown Verified 02/10/17 10:25 [From Talwin] Sulfa (Sulfonamide Allergy Unknown Verified 02/10/17 10:25 Antibiotics) sumatriptan [From Imitrex] Allergy Unknown Verified 02/10/17 10:25 sumatriptan succinate Allergy Unknown Verified 02/10/17 10:25 [From Imitrex] tetracycline [Tetracycline] Allergy Unknown Verified 02/10/17 10:25 vancomycin Allergy Unknown Verified 02/10/17 10:25 levofloxacin [From Levaquin] AdvReac Nausea & Verified 02/10/17 10:25 Vomiting Surgical - Exam Vital Signs Temp Pulse Resp BP Pulse Ox 101.1 F H 112 H 20 138/84 100 02/10/17 09:53 02/10/17 09:53 02/10/17 09:53 02/10/17 09:53 02/10/17 09:53 - General well developed, well nourished, no distress - Abdomen Abdomen: soft, tender, no guarding, no rigid, no rebound, no distended - Psychiatric oriented to time, oriented to person, oriented to place, speech is normal, memory intact Results - Labs 02/11/17 10:25 02/11/17 10:25 Microbiology - Last 24 Hours (Table) 02/12/17 16:15 Blood Culture - Preliminary Blood No Growth after 24 hours 02/12/17 03:00 Urine Culture - Preliminary Urine,Catheterized - Imaging CT scan - abdomen: report reviewed, image reviewed Assessment and Plan (1) Unspecified hydronephrosis Status: Acute (2) Retention of urine Status: Acute Plan: The patient is a 76-year-old white female admitted with presumed right pyelonephritis. However, her urine culture was negative, making this diagnosis unlikely. She has chronic right hydronephrosis, which is stable. Her WBC count has normalized, and her serum creatinine level is normal. She empties her bladder incompletely, and this appears to be chronic. It would be my recommendation that the Alexis catheter be removed, and that she be re-taught to perform intermittent self-catheterization. I would suggest this be performed 3- 4 times daily. She was advised to follow up with me 2 weeks following discharge. Please notify me if I can be of any further assistance. Time with Patient: Greater than 30
[2017-02-14] MEDS: AMITRIPTYLINE HCL 50 MG TAB PO SCH (20:24)
[2017-02-14] MEDS: LORazepam 1 MG TAB PO SCH (20:25)
[2017-02-14] MEDS: ONDANSETRON 4 MG/2 ML VIAL IVP PRN (22:29)
[2017-02-15 00:18] VITALS: RESP 16
[2017-02-15] MEDS: LEVOTHYROXINE 75 MCG TAB PO SCH (06:24)
[2017-02-15 07:30] VITALS: BP 114/50; PULSE 54; TEMP 97.6
[2017-02-15] MEDS: CALCIUM CARBONATE 500 MG CHEWABLE PO SCH (07:59)
[2017-02-15] MEDS: PANTOPRAZOLE 40 MG TABLET PO SCH (07:59)
[2017-02-15] MEDS: B COMPLEX-VIT C-VIT E-ZINC 1 EACH TAB PO SCH (07:59)
[2017-02-15] MEDS: MORPHINE SULFATE ER 60 MG TABLET PO SCH (07:59)
[2017-02-15] MEDS: CLOPIDOGREL 75 MG TAB PO SCH (08:00)
[2017-02-15] MEDS: TOPIRAMATE 100 MG TAB PO SCH (08:00)
[2017-02-15] MEDS: amLODIPine 10 MG TAB PO SCH (08:00)
[2017-02-15] MEDS: AZTREONAM 1 GM in SODIUM CHLORIDE 0.9% 50 ML IVPB SCH (08:00)
[2017-02-15] MEDS: METOPROLOL TARTRATE 50 MG TAB PO SCH (08:00)
[2017-02-15] MEDS: HYDROcodone/APAP 10-325MG 1 EACH TAB PO SCH ×2 (08:00→12:26)
[2017-02-15] MEDS: PHENYTOIN SODIUM EXTENDED 100 MG CAP PO SCH (08:00)
[2017-02-15] MEDS: levETIRAcetam 500 MG TAB PO SCH (08:00)
[2017-02-15 09:34] LABS: Basophils % (A) 1 %; CH 24.7; CHCM 30.5; Eosinophils # (A) 0.2 k/uL (0-0.7); Eosinophils % (A) 3 %; HCT 36.7 % (34.0-46.0); HDW 2.75; HGB 11.5 gm/dL (11.4-16.0); Hypochromasia Moderate; Luc # (Auto) 0.23; Luc % (Auto) 4; Lymphocytes # (A) 1.1 k/uL (1.0-4.8); Lymphocytes % (A) 18 %; MCH 25.6 pg (25.0-35.0); MCHC 31.4 g/dL (31.0-37.0); MCV 81.3 fL (80.0-100.0); Mean Platelet Volume 7.3; Monocytes # (A) 0.4 k/uL (0-1.0); Monocytes % (A) 7 %; Neutrophils % (A) 68 %; RBC 4.51 m/uL (3.80-5.40); RDW 13.9 % (11.5-15.5); WBC 5.9 k/uL (3.8-10.6); WBC (Perox) 6.27
[2017-02-15 10:42] LABS: ALT 50 U/L (9-52); AST 29 U/L (14-36); Alkaline Phosphatase 93 U/L (38-126); Anion Gap 9 mmol/L; Blood Urea Nitrogen 17 mg/dL (7-17); Calcium 8.7 mg/dL (8.4-10.2); Carbon Dioxide 23 mmol/L (22-30); Chloride 108 mmol/L (98-107); Glucose 141 mg/dL (74-99); Non-African American GFR(MDRD) >60 (>60 ml/min/1.73 sqM); Potassium 5.2 mmol/L (3.5-5.1); Sodium 140 mmol/L (137-145); Total Bilirubin 0.2 mg/dL (0.2-1.3); Total Protein 5.5 g/dL (6.3-8.2)
--- NOTE | 2017-02-15 11:00 | P.PN ---
<Sarah Huynh - Last Filed: 02/15/17 10:55> Subjective 76-year-old female being seen on rounds this morning is currently sitting up in a chair. Patient currently is reporting having lower back pain with persistent abdominal discomfort. Indwelling Alexis catheter in place adequate urine output. There's been no nausea vomiting. Patient states no stool patient did have a MRCP done yesterday in summary dilated common bile duct, central hepatic duct noted bilateral hydronephrosis, hepatic steatosis and splenomegaly currently patient is tolerating a consistent carb diet Objective - Vital Signs Vital signs: Vital Signs Temp 97.6 F 02/15/17 07:00 Pulse 54 L 02/15/17 07:00 Resp 16 02/15/17 07:00 BP 114/50 02/15/17 07:00 Pulse Ox 98 02/15/17 07:00 Intake & Output 02/14/17 02/15/17 02/15/17 18:59 06:59 18:59 Intake Total 50 Output Total 525 1500 Balance -525 -1450 Intake: Intake, IV Titration 50 Amount Aztreonam 1 gm In Sodium 50 Chloride 0.9% 50 ml @ 100 mls/hr IVPB Q8HR [facility] Rx# :[id number] Output: Urine 525 1500 Other: Voiding Method Indwelling Catheter Indwelling Catheter Indwelling Catheter # Voids 1 - Exam Physical exam 76-year-old female sitting up in a chair need see assist of 1 for most ADLs pleasant oriented 3 Lungs essentially clear adequate air movement Heart S1-S2 audible regular Abdomen soft bowel tones present not distended slight tenderness indwelling Alexis catheter in place adequate urine output Extremities no edema noted - Labs CBC & Chem 7: 02/15/17 08:50 02/15/17 08:50 Labs: Abnormal Lab Results - Last 24 Hours (Table) 02/15/17 Range/Units 08:50 Potassium 5.2 H (3.5-5.1) mmol/L Chloride 108 H (98-107) mmol/L Glucose 141 H (74-99) mg/dL Total Protein 5.5 L (6.3-8.2) g/dL Albumin 3.2 L (3.5-5.0) g/dL Microbiology - Last 24 Hours (Table) 02/12/17 16:15 Blood Culture - Preliminary Blood No Growth after 48 hours 02/12/17 03:00 Urine Culture - Final Urine,Catheterized 02/10/17 11:45 Blood Culture Gram Stain - Final Blood Blood Culture - Final Staph hominis sub sp. hominis Assessment and Plan Plan: Impression Present on admission fever nausea vomiting right flank pain suspect due to pyelonephritis Urinary retention necessitating the need for an indwelling Alexis catheter Anemia unknown etiology Chronic lower back pain History of bladder cancer in situ history of a seizure disorder Type 2 diabetes Hypertension essential Leukocytosis improving Plan No surgical intervention at this time no acute abdomen Further surgical recommendations per clinical course Resume home meds as appropriate Continue with medical management defer to The above impression and plan of care have been discussed and directed by signing physician. Sarah Huynh nurse practitioner acting as scribe for signing physician. <Hailee Norman N - Last Filed: 02/15/17 18:00> Objective - Vital Signs Vital signs: Vital Signs Temp 97.6 F 02/15/17 07:00 Pulse 54 L 02/15/17 07:00 Resp 16 02/15/17 07:00 BP 114/50 02/15/17 07:00 Pulse Ox 98 02/15/17 07:00 Intake & Output 02/14/17 02/15/17 02/15/17 18:59 06:59 18:59 Intake Total 50 Output Total 525 1500 Balance -525 -1450 Intake: Intake, IV Titration 50 Amount Aztreonam 1 gm In Sodium 50 Chloride 0.9% 50 ml @ 100 mls/hr IVPB Q8HR [facility] Rx# :[id number] Output: Urine 525 1500 Other: Voiding Method Indwelling Catheter Indwelling Catheter Indwelling Catheter # Voids 1 - Exam GENERAL: Well developed and in no acute distress. Pleasant. HEENT: No sclera icterus. Extraocular movements grossly intact. Moist buccal mucosa. Head is atraumatic, normocephalic. Hears conversational speech. No nasal drainage. NECK: Supple without lymphadenopathy. CHEST: Non-labored respirations and equal bilateral excursions. CARDIOVASCULAR: Regular rate and rhythm. Palpable 2+ radial pulses. ABDOMEN: Soft, mild tenderness along the right upper quadrant. No peritonitis. MUSCULOSKELETAL: No clubbing, cyanosis or edema. NEUROLOGIC: No focal or lateralizing signs. PSYCH: Appropriate affect. Alert and oriented to person, place and time. SKIN: Good skin turgor. Will perfused. - Labs CBC & Chem 7: 02/15/17 08:50 02/15/17 08:50 Labs: Abnormal Lab Results - Last 24 Hours (Table) 02/15/17 Range/Units 08:50 Potassium 5.2 H (3.5-5.1) mmol/L Chloride 108 H (98-107) mmol/L Glucose 141 H (74-99) mg/dL Total Protein 5.5 L (6.3-8.2) g/dL Albumin 3.2 L (3.5-5.0) g/dL Microbiology - Last 24 Hours (Table) 02/12/17 16:15 Blood Culture - Preliminary Blood No Growth after 48 hours Assessment and Plan Plan: Patient seen and evaluated by me alongside [facility]. MRCP personally reviewed consistent with dilated biliary tree. Patient may benefit from GI consultation in the future. However, she has no acute abdomen. No acute surgical intervention needed at this time. Patient may follow-up as an outpatient.
[2017-02-15] MEDS ORDERED: BISACODYL 10 MG SUPP RECTAL STA (12:27)
[2017-02-15] MEDS ORDERED: SENNOSIDES-DOCUSATE SODIUM 1 EACH TAB PO STA (12:27)
--- NOTE | 2017-02-15 14:22 | P.DS ---
Providers Date of admission: 02/10/17 14:54 Attending physician: Brenton Anthony MD Consults: 02/12/17 19:16 Consult Physician Routine Consulting Provider: Norm Schafer Consult Reason/Comments: dilated cbd Do you want consulting provider notified?: Yes 02/12/17 21:55 Consult Physician Routine Consulting Provider: Jose Nolasco Consult Reason/Comments: blood culture results Do you want consulting provider notified?: Already Contacted 02/13/17 15:54 Consult Physician Routine Consulting Provider: Max Chong Consult Reason/Comments: urinary retention Do you want consulting provider notified?: Yes Primary care physician: [facility] Hospital Course: This is 76-year-old female with the multiple abdominal surgeries including a neobladder creation thereafter reversal over 15 years ago comes in to the hospital with the severe abdominal pain. Patient was recently admitted to our service with similar complaints at that time it was thought that it was secondary to urinary retention. Patient also has a history of chronic constipation due to use of pain medications. Patient apparently has mild elevation of lipase at that time it was attribute it to pancreatitis on admission however the internal medicine physician who seemed patient did not think he was clinically consistent with pancreatic otitis At this time patient comes in with right flank pain with some difficulty in urination states that she has urinary urgency at this time Also complains of associated chills and nausea. Patient states that she slightly improved since admission. Denies having any headaches chest pain difficulty breathing. Patient last bowel movement was 5 days ago 01/12/17 had urinary retention terry was placed continues to have abdominal pain dilated CBD is noted 01/13/2017 Continues to have abdominal pain. Predominantly in the left flank radiating to her groin. Also states to have mid abdominal pain radiating to her back. This appears to be more of a chronic nature 01/14/2017 No fevers chills headaches blurry vision chest pain difficulty breathing is reported. Physical exam Gen. appearance oriented 3 in no distress Neck is supple no JVD Lungs good air entry clear to auscultation no rhonchi or wheezing Heart S1-S2 heard regular rate and rhythm no murmurs appreciated Abdomen distended tympanic to percussion. Previous surgical scars noted right- sided flank pain is noted Neurologically cranial nerves II-12 grossly intact no focal motor or sensory deficits noted Skin no abnormalities appreciated Assessment and Plan Plan: #1 acute pyelonephritis #2 diabetes mellitus type II #3 essential hypertension. #4 fibromyalgia #5 chronic low back pain #6 history of seizure disorder #Anemia of unknown etiology #8 history of bladder carcinoma in situ bacteremia staph hominis dc terry [facility]IC, and follow up with urology in 2 weeks pt had 5 days of iv abx abdominal pain is chronic , had been ongoing for yrs suspect neuropathy from previous surgical scars discussed with pt , start lyrica CBD dilated , MRCP was done, no liver enzyme elevation noted once safety at home is ensured, dc home with home care Plan - Discharge Summary New Discharge Prescriptions: New Pantoprazole [Protonix] 40 mg PO BID #60 tab Pregabalin [Lyrica] 25 mg PO BID #60 capsule Continue Albuterol Sulfate [Proair Hfa] 1 - 2 puff INHALATION RT-Q6H PRN PRN Reason: Shortness Of Breath Topiramate [Topamax] 100 mg PO TID Levothyroxine Sodium [Synthroid] 75 mcg PO DAILY Amitriptyline HCl [Elavil] 150 mg PO HS Clopidogrel [Plavix] 75 mg PO DAILY HYDROcodone/APAP 10-325MG [[place] 10-325] 1 tab PO QID Calcium Carbonate 400mg 400 mg PO BID LORazepam [Ativan] 1 mg PO HS LORazepam [Ativan] 0.5 mg PO DAILY PRN PRN Reason: Anxiety amLODIPine [Norvasc] 10 mg PO DAILY levETIRAcetam [Keppra] 500 mg PO TID Metoprolol Tartrate [Lopressor] 50 mg PO BID Phenytoin Sodium Extended [Dilantin] 200 mg PO BID Furosemide [Lasix] 20 mg PO DAILY PRN PRN Reason: Edema Vitamin B Complex 1 cap PO DAILY Morphine Sulfate ER [Ms Contin] 60 mg PO Q12HR Docusate [Colace] 100 mg PO BID PRN #60 capsule PRN Reason: Constipation Lubiprostone [Amitiza] 24 mcg PO BID #30 cap Polyethylene Glycol 3350 [Miralax] 17 gm PO DAILY PRN #15 packet PRN Reason: Constipation Discontinued Esomeprazole Magnesium [NexIUM] 20 mg PO AC-BRKT Discharge Medication List Albuterol Sulfate [Proair Hfa] 1 - 2 puff INHALATION RT-Q6H PRN 11/13/14 [ History] Amitriptyline HCl [Elavil] 150 mg PO HS 05/08/14 [History] Clopidogrel [Plavix] 75 mg PO DAILY 05/08/14 [History] Levothyroxine Sodium [Synthroid] 75 mcg PO DAILY 05/08/14 [History] Topiramate [Topamax] 100 mg PO TID 05/08/14 [History] HYDROcodone/APAP 10-325MG [[place] 10-325] 1 tab PO QID 01/29/16 [History] Calcium Carbonate 400mg 400 mg PO BID 01/27/17 [History] Furosemide [Lasix] 20 mg PO DAILY PRN 01/27/17 [History] LORazepam [Ativan] 0.5 mg PO DAILY PRN 01/27/17 [History] LORazepam [Ativan] 1 mg PO HS 01/27/17 [History] Metoprolol Tartrate [Lopressor] 50 mg PO BID 01/27/17 [History] Morphine Sulfate ER [Ms Contin] 60 mg PO Q12HR 01/27/17 [History] Phenytoin Sodium Extended [Dilantin] 200 mg PO BID 01/27/17 [History] Vitamin B Complex 1 cap PO DAILY 01/27/17 [History] amLODIPine [Norvasc] 10 mg PO DAILY 01/27/17 [History] levETIRAcetam [Keppra] 500 mg PO TID 01/27/17 [History] Docusate [Colace] 100 mg PO BID PRN #60 capsule 01/28/17 [Rx] Lubiprostone [Amitiza] 24 mcg PO BID #30 cap 01/28/17 [Rx] Polyethylene Glycol 3350 [Miralax] 17 gm PO DAILY PRN #15 packet 01/28/17 [Rx] Pantoprazole [Protonix] 40 mg PO BID #60 tab 02/15/17 [Rx] Pregabalin [Lyrica] 25 mg PO BID #60 capsule 02/15/17 [Rx] Follow up Appointment(s)/Referral(s): Max Chong MD [STAFF PHYSICIAN] - 03/01/17 7:40 am Hailee Norman MD [STAFF PHYSICIAN] - 1 Week (pt requests to make own appointments. ) Margarita Salcedo DO [Primary Care Provider] - 1-2 days (Pt requests to make own appointment. ) [facility] Visiting Nurse, [NON-STAFF] - 1 Week Patient Instructions/Handouts: Urinary Tract Infection in Women (DC), How to Catheterize Yourself (Woman) (GEN) Activity/Diet/Wound Care/Special Instructions: Cardiac, diabetic diet. Discharge Disposition: HOME WITH HOME HEALTH SERVICES
--- NOTE | 2017-02-15 22:31 | PN ---
DATE OF SERVICE: 02/14/2017 REASON FOR FOLLOWUP: Urinary tract infection and a positive blood culture. INTERVAL HISTORY: The patient is afebrile. Her abdominal pain seems to have slightly improved. Denies significant chest pain or shortness of breath or cough. On examination, blood pressure 146/74 with a pulse of 59, temperature 97.9. She is 96% on room air. General description is an elderly female lying in bed in no distress. RESPIRATORY SYSTEM: Unlabored breathing. Clear to auscultation anteriorly. HEART: S1, S2. Regular rate and rhythm. ABDOMEN: Soft. No tenderness. LABS: No new labs have been obtained today. The urine culture done on 02/12 has been negative. Unfortunately the UA was positive on admission. However, no cultures were done on that UA. DIAGNOSTIC IMPRESSION AND PLAN: Patient admitted to hospital with sepsis in a patient who did have a fever and elevated white count with a positive UA, cloudy and smelly urine, in a patient who did have evidence of hydronephrosis, likely representing symptomatic urinary tract infection. Unfortunately no urine cultures were done on that urine on admission. A urine culture 2 days later ( ) the patient has been on antibiotic is negative. More likely an azactam- sensitive pathogen. She will continue on azactam at this point. Repeating a CBC with ( ) and UA tomorrow. Continue supportive care. MARS
--- NOTE | 2017-02-16 08:48 | PN ---
DATE OF SERVICE: 02/15/17 REASON FOR FOLLOW UP: Urinary tract infection. INTERVAL HISTORY: The patient is afebrile. She is breathing comfortably. The patient denies significant chest pain, shortness of breath or cough. Abdominal pain has improved. Alexis was discontinued. The patient is self catheterizing herself. No other urinary symptoms. On examination, blood pressure 114/58 with a pulse of 84. Temperature 97.6. She is 98% on room air. General description is an elderly female lying in the bed in no distress. Respiratory system unlabored breathing. Clear to auscultation anteriorly. Heart S1, S2 regular rate and rhythm. Abdomen soft. No tenderness. LABS: Hemoglobin 11.5, white count 4.9, BUN 17, creatinine 0.80. DIAGNOSTIC IMPRESSION AND PLAN: The patient admitted to the hospital with likely urinary tract infection. Unfortunately, urine cultures were not done on the UA from the ER with repeat urine culture done in 48 hours has been negative. The patient with multiple antibiotic allergies and no oral option available, the patient received about seven days of antibiotic therapy, should be enough. We will go ahead and recommend discontinuation of antibiotic on discharge and close outpatient follow-up. MARS
== END 2017-02-15 14:23 | disposition home health service (06) | DRG 690 ==
LOC: EC 09:46 → 3SUR 14:54 → 4MS4W 15:27
PROVIDERS: ADMIT Internal Medicine; ATTEND Internal Medicine
DX: N13.6 Pyonephrosis (principal); D64.9 Anemia, unspecified; E11.9 Type 2 diabetes mellitus without complications; I10 Essential (primary) hypertension; E03.9 Hypothyroidism, unspecified; G40.909 Epilepsy, unspecified, not intractable, without status epilepticus; R33.9 Retention of urine, unspecified; K59.03 Drug induced constipation; T40.605A Adverse effect of unspecified narcotics, initial encounter; E78.5 Hyperlipidemia, unspecified; M79.7 Fibromyalgia; G89.29 Other chronic pain; M54.5 Low back pain; F41.9 Anxiety disorder, unspecified; M81.0 Age-related osteoporosis without current pathological fracture; Z79.02 Long term (current) use of antithrombotics/antiplatelets; Z79.891 Long term (current) use of opiate analgesic; Z79.899 Other long term (current) drug therapy; Z88.1 Allergy status to other antibiotic agents; Z86.73 Personal history of transient ischemic attack (TIA), and cerebral infarction without residual deficits; Z90.49 Acquired absence of other specified parts of digestive tract; Z90.710 Acquired absence of both cervix and uterus; Z96.652 Presence of left artificial knee joint; Z85.51 Personal history of malignant neoplasm of bladder; Z88.8 Allergy status to other drugs, medicaments and biological substances; Z87.440 Personal history of urinary (tract) infections; Z98.42 Cataract extraction status, left eye; Z98.41 Cataract extraction status, right eye; Z88.0 Allergy status to penicillin; Z88.2 Allergy status to sulfonamides; Z86.14 Personal history of Methicillin resistant Staphylococcus aureus infection
CPT/HCPCS: 36415; 71020; 74000; 74181; 76700; 76937; 80048; 80053; 81001; 82150; 83605; 83690; 85025; 85027; 87040; 87077; 87086; 87186; 96374; 96375; 99285

== ENCOUNTER 2017-05-07 15:41 | Inpatient (IN) | payer MEDICARE, OTHER ==
--- NOTE | 2017-05-07 16:17 | ED ---
SOB HPI - General Source: patient, EMS, RN notes reviewed Mode of arrival: EMS Limitations: no limitations - History of Present Illness MD Complaint: shortness of breath <Lenny Loco - Last Filed: 05/07/17 16:55> <Rene Anaya - Last Filed: 05/07/17 22:39> - General Chief Complaint: Shortness of Breath Stated Complaint: ALTERED MENTAL STATUS Time Seen by Provider: 05/07/17 15:41 - History of Present Illness Initial Comments: This is a 76-year-old female who presents by EMS with complaints of waking up with shortness of breath and abdominal pain. She was brought in by EMS she currently woke up screaming that she couldn't breathe initially alerting neighbors. She was noted be hyperventilating per paramedics picked her up from her residence. She was somewhat confused briefly when asked questions she responded by stating [address]. She states she feels somewhat better was resected shortness of breath has upper abdominal pain. She has a history of pyelonephritis or renal cyst also pancreatitis in the past. She denies any fevers chills nausea vomiting sweats or other symptoms at this time she also states she has some back pain. (Lenny Loco) - Related Data Home Medications Medication Instructions Recorded Confirmed Albuterol Sulfate [Proair Hfa] 1 - 2 puff INHALATION RT-Q6H PRN 05/08/14 Amitriptyline HCl [Elavil] 150 mg PO HS 05/08/14 05/07/17 Clopidogrel [Plavix] 75 mg PO DAILY 05/08/14 05/07/17 Levothyroxine Sodium [Synthroid] 75 mcg PO DAILY 05/08/14 05/07/17 Topiramate [Topamax] 100 mg PO TID 05/08/14 05/07/17 HYDROcodone/APAP 10-325MG [[place] 1 tab PO QID 01/29/16 05/07/17 10-325] Calcium Carbonate 400mg 400 mg PO BID 01/27/17 05/07/17 Furosemide [Lasix] 20 mg PO DAILY PRN 01/27/17 05/07/17 LORazepam [Ativan] 0.5 mg PO DAILY PRN 01/27/17 05/07/17 LORazepam [Ativan] 1 mg PO HS 01/27/17 05/07/17 Metoprolol Tartrate [Lopressor] 50 mg PO BID 01/27/17 05/07/17 Morphine Sulfate ER [Ms Contin] 60 mg PO Q12HR 01/27/17 05/07/17 Phenytoin Sodium Extended 200 mg PO BID 01/27/17 05/07/17 [Dilantin] Vitamin B Complex 1 cap PO DAILY 01/27/17 05/07/17 amLODIPine [Norvasc] 10 mg PO DAILY 01/27/17 05/07/17 levETIRAcetam [Keppra] 500 mg PO TID 01/27/17 05/07/17 Previous Rx's Medication Instructions Recorded Docusate [Colace] 100 mg PO BID PRN #60 capsule 01/28/17 Lubiprostone [Amitiza] 24 mcg PO BID #30 cap 01/28/17 Polyethylene Glycol 3350 [Miralax] 17 gm PO DAILY PRN #15 packet 01/28/17 Pantoprazole [Protonix] 40 mg PO BID #60 tab 02/15/17 Pregabalin [Lyrica] 25 mg PO BID #60 capsule 02/15/17 Allergies Allergy/AdvReac Type Severity Reaction Status Date / Time cephalexin [From Keflex] Allergy Unknown Verified 05/07/17 15:50 Cephalosporins Allergy Unknown Verified 05/07/17 15:50 ciprofloxacin [From Cipro] Allergy Rash/Hives Verified 05/07/17 15:50 diazepam [From Valium] Allergy Unknown Verified 05/07/17 15:50 erythromycin base Allergy Unknown Verified 05/07/17 15:50 [Erythromycin Base] ketorolac tromethamine Allergy Unknown Verified 05/07/17 15:50 [From Toradol] Penicillins Allergy Unknown Verified 05/07/17 15:50 pentazocine lactate Allergy Unknown Verified 05/07/17 15:50 [From Talwin] Sulfa (Sulfonamide Allergy Unknown Verified 05/07/17 15:50 Antibiotics) sumatriptan [From Imitrex] Allergy Unknown Verified 05/07/17 15:50 sumatriptan succinate Allergy Unknown Verified 05/07/17 15:50 [From Imitrex] tetracycline [Tetracycline] Allergy Unknown Verified 05/07/17 15:50 vancomycin Allergy Unknown Verified 05/07/17 15:50 levofloxacin [From Levaquin] AdvReac Nausea & Verified 05/07/17 15:50 Vomiting Review of Systems ROS Other: All systems not noted in ROS Statement are negative. <ClaudyLenny - Last Filed: 05/07/17 16:55> ROS Other: All systems not noted in ROS Statement are negative. <Rene Anaya - Last Filed: 05/07/17 22:39> ROS Statement: Those systems with pertinent positive or pertinent negative responses have been documented in the HPI. Past Medical History Past Medical History: CVA/TIA, Diabetes Mellitus, Hyperlipidemia, Hypertension, Pneumonia, Seizure Disorder, Thyroid Disorder Additional Past Medical History / Comment(s): tia,dm but not on meds anymore and no bs checks,per pmh"past ulcer,hypothyroid, pancreatitis, uti, migraines, diverticulistis,osteroporosis, blood clots. 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- reji shoulder sx, lt knee replacment,hernia repair,bowel resection w/ileostomy since reversed,reji cataract,reji foot sx/ Past Anesthesia/Blood Transfusion Reactions: No Reported Reaction Past Psychological History: Anxiety Smoking Status: Never smoker Past Alcohol Use History: None Reported Past Drug Use History: None Reported - Past Family History Mother Additional Family Medical History / Comment(s): Brain tumor Brother(s) Additional Family Medical History / Comment(s): Colon Cancer Father Family Medical History: Cancer Additional Family Medical History / Comment(s): Lung cancer <ClaudyLenny - Last Filed: 05/07/17 16:55> General Exam Limitations: no limitations General appearance: alert, anxious Head exam: Present: atraumatic, normocephalic, normal inspection Eye exam: Present: normal appearance, PERRL, EOMI. Absent: scleral icterus, conjunctival injection, periorbital swelling ENT exam: Present: normal exam, mucous membranes moist Neck exam: Present: normal inspection. Absent: tenderness, meningismus, lymphadenopathy Respiratory exam: Present: normal lung sounds bilaterally, decreased breath sounds. Absent: respiratory distress, wheezes, rales, rhonchi, stridor Cardiovascular Exam: Present: regular rate, normal rhythm, normal heart sounds. Absent: systolic murmur, diastolic murmur, rubs, gallop, clicks GI/Abdominal exam: Present: soft, tenderness, normal bowel sounds. Absent: distended, guarding, rebound, rigid, bruit, pulsatile mass, hernia Extremities exam: Present: normal inspection, full ROM, normal capillary refill. Absent: tenderness, pedal edema, joint swelling, calf tenderness Back exam: Present: normal inspection Neurological exam: Present: alert, oriented X3, CN II-XII intact Psychiatric exam: Present: normal affect, normal mood Skin exam: Present: warm, dry, intact, normal color. Absent: rash <Lenny Loco - Last Filed: 05/07/17 16:55> <Rene Anaya - Last Filed: 05/07/17 22:39> - General Exam Comments Initial Comments: This is a well-developed well-nourished awake alert oriented 3 female (Lenny Loco) Course <Lenny Loco - Last Filed: 05/07/17 16:55> <Rene Anaya - Last Filed: 05/07/17 22:39> Vital Signs 05/07/17 05/07/17 05/07/17 15:51 16:42 17:51 Temperature 98.4 F Pulse Rate 100 100 92 Respiratory 18 20 18 Rate Blood Pressure 128/85 138/58 105/62 O2 Sat by Pulse 98 95 95 Oximetry 05/07/17 05/07/17 19:26 20:21 Temperature 97.9 F Pulse Rate 90 90 Respiratory 20 20 Rate Blood Pressure 112/65 141/66 O2 Sat by Pulse 95 95 Oximetry - Reevaluation(s) Reevaluation #1: 05/07/17 16:56 Patient's care was endorsed to Dr. Anaya who will make the final disposition ( Lenny Loco) Medical Decision Making - EKG Data -: EKG Interpreted by Me EKG shows normal: sinus rhythm (Sinus rhythm rate of 100. Interval 150 QRS 150 QT since QTC of 384/495 evidence a right bundle-branch block no change seen with compared to an EKG dated 01/27/17) <Lenny Loco - Last Filed: 05/07/17 16:55> - Lab Data Result diagrams: 05/07/17 17:52 05/07/17 17:52 <Rene Anaya - Last Filed: 05/07/17 22:39> - Lab Data Lab Results 05/07/17 05/07/17 05/07/17 Range/Units 17:52 17:52 17:52 WBC (3.8-10.6) k/uL RBC (3.80-5.40) m/uL Hgb (11.4-16.0) gm/dL Hct (34.0-46.0) % MCV (80.0-100.0) fL MCH (25.0-35.0) pg MCHC (31.0-37.0) g/dL RDW (11.5-15.5) % Plt Count (150-450) k/uL Neutrophils % (Manual) % Band Neutrophils % % Lymphocytes % (Manual) % Monocytes % (Manual) % Neutrophils # (Manual) (1.3-7.7) k/uL Lymphocytes # (Manual) (1.0-4.8) k/uL Monocytes # (Manual) (0-1.0) k/uL Nucleated RBCs (0-0) /100 WBC Manual Slide Review Hypochromasia PT 10.2 (9.0-12.0) sec INR 1.0 (<1.2) APTT 24.0 (22.0-30.0) sec D-Dimer 4.27 H (<0.60) mg/L FEU Sodium 140 (137-145) mmol/L Potassium 5.3 H (3.5-5.1) mmol/L Chloride 106 (98-107) mmol/L Carbon Dioxide 12 L (22-30) mmol/L Anion Gap 22 mmol/L BUN 60 H (7-17) mg/dL Creatinine 3.77 H (0.52-1.04) mg/dL Est GFR (MDRD) Af Amer 14 (>60 ml/min/1.73 sqM) Est GFR (MDRD) Non-Af 12 (>60 ml/min/1.73 sqM) Glucose 206 H (74-99) mg/dL Calcium 8.6 (8.4-10.2) mg/dL Total Bilirubin 0.3 (0.2-1.3) mg/dL AST 37 H (14-36) U/L ALT 38 (9-52) U/L Alkaline Phosphatase 125 (38-126) U/L Total Creatine Kinase 589 H (30-135) U/L CK-MB (CK-2) 16.3 H* (0.0-2.4) ng/mL CK-MB (CK-2) Rel Index 2.8 Troponin I <0.012 (0.000-0.034) ng/mL NT-Pro-B Natriuret Pep pg/mL Total Protein 7.1 (6.3-8.2) g/dL Albumin 4.2 (3.5-5.0) g/dL Amylase 317 H* (30-110) U/L Lipase 191 (23-300) U/L Urine Color Urine Appearance (Clear) Urine pH (5.0-8.0) Ur Specific [place] (1.001-1.035) Urine Protein (Negative) Urine Glucose (UA) (Negative) Urine Ketones (Negative) Urine Blood (Negative) Urine Nitrite (Negative) Urine Bilirubin (Negative) Urine Urobilinogen (<2.0) mg/dL Ur Leukocyte Esterase (Negative) Urine RBC (0-5) /hpf Urine WBC (0-5) /hpf Urine WBC Clumps (None) /hpf Ur Squamous Epith Cells (0-4) /hpf Urine Bacteria (None) /hpf Urine Mucus (None) /hpf Urine Yeast (Budding) (None) /hpf 05/07/17 05/07/17 05/07/17 Range/Units 17:52 17:52 18:25 WBC 27.2 H* (3.8-10.6) k/uL RBC 5.11 (3.80-5.40) m/uL Hgb 12.2 (11.4-16.0) gm/dL Hct 41.8 (34.0-46.0) % MCV 81.9 (80.0-100.0) fL MCH 23.8 L (25.0-35.0) pg MCHC 29.1 L (31.0-37.0) g/dL RDW 14.9 (11.5-15.5) % Plt Count 323 (150-450) k/uL Neutrophils % (Manual) 83 % Band Neutrophils % 7 % Lymphocytes % (Manual) 3 % Monocytes % (Manual) 8 % Neutrophils # (Manual) 24.40 H (1.3-7.7) k/uL Lymphocytes # (Manual) 0.82 L (1.0-4.8) k/uL Monocytes # (Manual) 2.18 H (0-1.0) k/uL Nucleated RBCs 0 (0-0) /100 WBC Manual Slide Review Performed Hypochromasia Marked PT (9.0-12.0) sec INR (<1.2) APTT (22.0-30.0) sec D-Dimer (<0.60) mg/L FEU Sodium (137-145) mmol/L Potassium (3.5-5.1) mmol/L Chloride (98-107) mmol/L Carbon Dioxide (22-30) mmol/L Anion Gap mmol/L BUN (7-17) mg/dL Creatinine (0.52-1.04) mg/dL Est GFR (MDRD) Af Amer (>60 ml/min/1.73 sqM) Est GFR (MDRD) Non-Af (>60 ml/min/1.73 sqM) Glucose (74-99) mg/dL Calcium (8.4-10.2) mg/dL Total Bilirubin (0.2-1.3) mg/dL AST (14-36) U/L ALT (9-52) U/L Alkaline Phosphatase (38-126) U/L Total Creatine Kinase (30-135) U/L CK-MB (CK-2) (0.0-2.4) ng/mL CK-MB (CK-2) Rel Index Troponin I (0.000-0.034) ng/mL NT-Pro-B Natriuret Pep 1480 pg/mL Total Protein (6.3-8.2) g/dL Albumin (3.5-5.0) g/dL Amylase (30-110) U/L Lipase (23-300) U/L Urine Color Yellow Urine Appearance Turbid H (Clear) Urine pH 5.0 (5.0-8.0) Ur Specific [place] 1.020 (1.001-1.035) Urine Protein 1+ H (Negative) Urine Glucose (UA) Negative (Negative) Urine Ketones Negative (Negative) Urine Blood Small H (Negative) Urine Nitrite Negative (Negative) Urine Bilirubin Negative (Negative) Urine Urobilinogen 2.0 (<2.0) mg/dL Ur Leukocyte Esterase Large H (Negative) Urine RBC 15 H (0-5) /hpf Urine WBC 26 H (0-5) /hpf Urine WBC Clumps Moderate H (None) /hpf Ur Squamous Epith Cells 4 (0-4) /hpf Urine Bacteria Few H (None) /hpf Urine Mucus Many H (None) /hpf Urine Yeast (Budding) Few H (None) /hpf Disposition <Lenny Loco - Last Filed: 05/07/17 16:55> <Rene Anaya - Last Filed: 05/07/17 22:39> Clinical Impression: Acute renal failure, D-dimer, elevated Disposition: HOME SELF-CARE Condition: Fair Referrals: Margarita Salcedo DO [Primary Care Provider] - 1-2 days
[2017-05-07 18:17] LABS: CH 22.6; CHCM 27.8; Calcium 8.6 mg/dL (8.4-10.2); HCT 41.8 % (34.0-46.0); HDW 2.86; HGB 12.2 gm/dL (11.4-16.0); Hypochromasia Marked; MCH 23.8 pg (25.0-35.0); MCHC 29.1 g/dL (31.0-37.0); MCV 81.9 fL (80.0-100.0); Mean Platelet Volume 7.8; Potassium 5.3 mmol/L (3.5-5.1); Prothrombin Time 10.2 sec (9.0-12.0); RBC 5.11 m/uL (3.80-5.40); RDW 14.9 % (11.5-15.5); Total Bilirubin 0.3 mg/dL (0.2-1.3); Total Protein 7.1 g/dL (6.3-8.2)
[2017-05-07 18:18] LABS: WBC 27.2 k/uL (3.8-10.6)
--- NOTE | 2017-05-07 18:20 | XR ---
EXAMINATION TYPE: XR chest 2V DATE OF EXAM: 05/07/2017 COMPARISON: 04/23/2017 INDICATION: Difficulty breathing, altered mental status TECHNIQUE: Frontal and lateral views of the chest are obtained. FINDINGS: The heart size is enlarged. The pulmonary vasculature is normal. Some patchy infiltrate on the under inflated lungs is in the right perihilar region. Correlate for at electasis. Early pneumonia is not excluded.. IMPRESSION: 1. Poor inspiration. 2. Right perihilar infiltrate may be related atelectasis or early pneumonia. Follow-up can be perform ed as clinically indicated.
--- NOTE | 2017-05-07 18:21 | XR ---
EXAMINATION TYPE: XR abdomen 1V DATE OF EXAM: 05/07/2017 COMPARISON: 02/10/2017 INDICATION: Pain TECHNIQUE: Single view abdomen supine FINDINGS: There is a normal bowel gas pattern. Abundant fecal debris is present. Surgical clips are within the pelvis. Psoas margins are normal. No organomegaly is present. No mass effect is evident. IMPRESSION: 1. Correlate for fecal retention. Abundant fecal debris is throughout the colon.
[2017-05-07 18:28] LABS: Creatine Kinase 589 U/L (30-135)
[2017-05-07 18:41] LABS: Troponin I <0.012 ng/mL (0.000-0.034)
[2017-05-07 18:43] LABS: Add Differential Manual Differential
[2017-05-07 18:45] LABS: Band Neutrophils % 7 %; Nucleated Red Blood Cells 0 /100 WBC (0-0); Total Cells Counted 200
[2017-05-07 18:46] LABS: Manual Review Performed
[2017-05-07 18:48] LABS: Appearance,Urine Turbid (Clear); Bacteria,Urine Few /hpf; Bilirubin,Urine Negative (Negative); Glucose,Urine (UA) Negative (Negative); Ketones,Urine Negative (Negative); Leukocyte Esterase,Urine Large (Negative); Mucus,Urine Many /hpf; Nitrite,Urine Negative (Negative); Particle Count 24645; Protein,Urine 1+ (Negative); RBC,Urine 15 /hpf (0-5); Squamous Epithelial Cell,Urine 4 /hpf (0-4); UA Billing (MACRO vs. MICRO) MICRO; WBC,Urine 26 /hpf (0-5)
[2017-05-07 18:51] LABS: Creatine Kinase MB 16.3 ng/mL (0.0-2.4)
[2017-05-07] MEDS ORDERED: AZTREONAM 2 GM in SODIUM CHLORIDE 0.9% 100 ML IVPB STA (19:12)
--- NOTE | 2017-05-07 20:13 | CT ---
EXAMINATION TYPE: CT abdomen pelvis wo con DATE OF EXAM: 05/07/2017 COMPARISON: 01/27/2017 INDICATION: Generalized pain DLP: 839.2 mGycm, Automated exposure control for dose reduction was used. CONTRAST: 0 mL of Omnipaque 300. Study performed without Oral Contrast TECHNIQUE: Axial images were obtained from above the diaphragm to the pubic rami in the axial plane a t 5 mm thick sections. Reconstructed images are reviewed on the computer in the coronal plane. FINDINGS: Limited CT sections are obtained the lung bases. The lung bases are clear. Coronary artery calcific ations present. Some mild subsegmental atelectasis may be present. CT ABDOMEN: Liver: Normal Spleen: Normal Pancreas: Atrophic Adrenal glands: The adrenal glands are normal. Gallbladder: Surgically absent Kidneys: No masses are evident. No hydronephrosis is present. No cysts are present. There is a 0.4 cm calcification in the inferior pole left kidney. Additional inferior pole left renal stone is pres ent measuring 0.3 cm in the coronal plane images. No hydronephrosis or hydroureter is evident on the left. There appears to be some mild right hydronephrosis present. No hydroureter is evident. Aorta: Vascular calcification is within the aorta. Inferior vena cava: Decompressed which can be related to the patient's volume status. CT PELVIS: Large fecal bolus is at the ascending colon. Descending colon fecal debris is also present. There are loops of bowel which are incompletely distended or lack oral contrast limiting their evaluation. Appendix: Not visualized Urinary bladder: Decompressed Genitourinary structures: Uterus and ovaries are not identified. Surgical clips are within the pelvis . Osseous structures: No suspicious lytic or sclerotic lesions. IMPRESSIONS: 1. Large degree of fecal retention throughout the colon. 2. Mild right hydronephrosis uncertain etiology. No hydroureter is evident. 3. Two inferior pole nonobstructing left renal stones.
[2017-05-07] MEDS ORDERED: SODIUM CHLORIDE 0.9% 500 ML IV STA (20:57)
[2017-05-07] MEDS ORDERED: SODIUM CHLORIDE 0.9% 2,000 ML IV ONE (20:57)
[2017-05-07] MEDS ORDERED: ENOXAPARIN 80 MG/0.8 ML SYRINGE SQ STA (22:18)
[2017-05-07] MEDS ORDERED: NALOXONE 0.4 MG/ML 1 ML VIAL IV PRN (22:29)
[2017-05-07] MEDS ORDERED: DOCUSATE 100 MG CAP PO PRN (22:34)
[2017-05-07] MEDS ORDERED: LORazepam 0.5 MG TAB PO PRN (22:34)
[2017-05-07] MEDS ORDERED: POLYETHYLENE GLYCOL 3350 17 GM POWD.PACK PO PRN (22:34)
[2017-05-07] MEDS ORDERED: ALBUTEROL NEBULIZED 2.5 MG/3 ML INHALATION PRN (22:34)
[2017-05-07] MEDS ORDERED: PNEUMONIA PROTOCOL UTILIZED 1 EACH MISC PO PRN (22:40)
[2017-05-08 01:46] VITALS: BMI 36.3
[2017-05-08] MEDS: SODIUM CHLORIDE 0.9% 1,000 ML IV SCH ×3 (01:52→18:48)
[2017-05-08 06:27] LABS: Glucose,Whole Blood 126 mg/dL (75-99)
[2017-05-08 06:31] LABS: CH 23.2; CHCM 27.4; HCT 38.7 % (34.0-46.0); HDW 2.78; HGB 10.7 gm/dL (11.4-16.0); Hypochromasia Marked; Immature Gran Flag Marked; MCH 23.6 pg (25.0-35.0); MCHC 27.7 g/dL (31.0-37.0); MCV 85.1 fL (80.0-100.0); Mean Platelet Volume 7.3; RBC 4.55 m/uL (3.80-5.40); WBC 14.2 k/uL (3.8-10.6); WBC (Perox) 14.79
[2017-05-08 06:42] LABS: Calcium 7.3 mg/dL (8.4-10.2); Potassium 4.9 mmol/L (3.5-5.1); Total Bilirubin 0.4 mg/dL (0.2-1.3); Total Protein 5.8 g/dL (6.3-8.2)
[2017-05-08 06:58] LABS: Add Differential Manual Differential
[2017-05-08 07:00] LABS: Band Neutrophils % 5 %; Nucleated Red Blood Cells 0 /100 WBC (0-0); Total Cells Counted 100
[2017-05-08 07:04] LABS: Manual Review Performed
[2017-05-08] MEDS ORDERED: LEVOTHYROXINE 75 MCG TAB PO SCH (09:00)
[2017-05-08] MEDS ORDERED: TOPIRAMATE 100 MG TAB PO SCH (09:00)
[2017-05-08] MEDS ORDERED: MORPHINE SULFATE ER 60 MG TABLET PO SCH (09:00)
[2017-05-08] MEDS ORDERED: amLODIPine 10 MG TAB PO SCH (09:00)
[2017-05-08] MEDS ORDERED: CLOPIDOGREL 75 MG TAB PO SCH (09:00)
[2017-05-08] MEDS ORDERED: CALCIUM CARBONATE 500 MG CHEWABLE PO SCH (09:00)
[2017-05-08] MEDS ORDERED: METOPROLOL TARTRATE 50 MG TAB PO SCH (09:00)
[2017-05-08] MEDS ORDERED: PREGABALIN 25 MG CAP PO SCH (09:00)
[2017-05-08] MEDS ORDERED: PHENYTOIN SODIUM EXTENDED 100 MG CAP PO SCH (09:00)
[2017-05-08] MEDS ORDERED: ENOXAPARIN 40 MG/0.4 ML SYRINGE SQ SCH (09:00)
[2017-05-08] MEDS ORDERED: NON-FORMULARY DRUG (Lubiprostone [Amitiza] 24 MCG) PO SCH (09:00)
[2017-05-08] MEDS ORDERED: PANTOPRAZOLE 40 MG TABLET PO SCH (09:00)
[2017-05-08] MEDS: AZTREONAM 2 GM in SODIUM CHLORIDE 0.9% 100 ML IVPB SCH ×2 (09:31→18:47)
[2017-05-08] MEDS: levETIRAcetam 500 MG TAB PO SCH ×2 (09:47→18:47)
--- NOTE | 2017-05-08 09:54 | NM ---
EXAMINATION TYPE: NM pul vent and perfuse DATE OF EXAM: 05/08/2017 COMPARISON: NONE HISTORY: Shortness of breath TECHNIQUE: Utilizing inhalation of 71.4 mCi Tc 99m DTPA aerosol and intravenous injection of 5.4 mCi of Tc 99m MAA, ventilation and perfusion images are acquired post injection in multiple projections. FINDINGS: There is a matched ventilation/perfusion defect at both lung bases greater on the right. Portions of the exam were not completed by the patient therefore the exam is severely limited. IMPRESSION: Exam severely limited as the patient could not complete the last set of ventilation image s. Matched defects at the lung bases. Findings are compatible with intermediate probability for pulmonar y embolus.
[2017-05-08] MEDS ORDERED: FUROSEMIDE 20 MG TAB PO PRN (11:30)
[2017-05-08] MEDS ORDERED: HYDROcodone/APAP 10-325MG 1 EACH TAB PO PRN (11:30)
[2017-05-08] MEDS ORDERED: MORPHINE SULFATE ER 30 MG TABLET PO PRN (11:51)
[2017-05-08 11:57] LABS: Glucose,Whole Blood 142 mg/dL (75-99)
[2017-05-08] MEDS: LACTULOSE 20 GM/30 ML CUP PO SCH ×2 (12:26→18:47)
[2017-05-08] MEDS ORDERED: FUROSEMIDE 10 MG/ML 4 ML VIAL IV STA (13:11)
[2017-05-08] MEDS ORDERED: FUROSEMIDE 10 MG/ML 4 ML VIAL ONE (13:15)
[2017-05-08] MEDS ORDERED: IPRATROPIUM-ALBUTEROL 3 ML NEB INHALATION PRN (13:57)
[2017-05-08 14:00] LABS: Glucose,Whole Blood 126 mg/dL (75-99)
--- NOTE | 2017-05-08 14:08 | XR ---
EXAMINATION TYPE: XR chest 1V portable DATE OF EXAM: 05/08/2017 COMPARISON: 05/07/2017 HISTORY: Shortness of breath TECHNIQUE: Single frontal view of the chest is obtained. FINDINGS: Bilateral areas of subsegmental consolidation. No pleural effusion or pneumothorax. Previo us surgery involving the left clavicle. Heart size stable. IMPRESSION: 1. Limited exam due to poor inspiration demonstrates persistent bilateral areas of atelectasis or inf iltrate unchanged in appearance.
[2017-05-08 14:09] LABS: ABG Base Excess -15.5 mmol/L; ABG HCO3 12 mmol/L (21-25); ABG PCO2 34 mmHg (35-45); ABG PH 7.15 (7.35-7.45); ABG PO2 74 mmHg (83-108); ABG TCO2 13 mmol/L (19-24)
[2017-05-08] MEDS ORDERED: PANTOPRAZOLE 40 MG/10 ML VIAL IVP SCH (14:15)
[2017-05-08] MEDS: SODIUM BICARB 8.4% 50 ML SYR (1 MEQ/ML) IV SCH (14:19)
[2017-05-08 15:27] LABS: ABG Base Excess -12.4 mmol/L; ABG HCO3 14 mmol/L (21-25); ABG PCO2 34 mmHg (35-45); ABG PH 7.23 (7.35-7.45); ABG PO2 260 mmHg (83-108); ABG TCO2 15 mmol/L (19-24)
[2017-05-08] MEDS ORDERED: SODIUM BICARBONATE TAB 650 MG TAB PO SCH (16:00)
--- NOTE | 2017-05-08 16:47 | P.GSCN ---
History of Present Illness Consult date: 05/08/17 Reason for Consult: Abdominal pain History of present illness: Patient brought to the hospital yesterday through EMS. Patient was having shortness of breath, confusion, and abdominal pain. Per the ER notes the pain was present in the upper abdomen. There apparently was a little abdominal distention on arrival. No reported vomiting. Patient was not able to provide any history to the ER or today related to her recent bowel function. This afternoon she was found to be more tachypneic and febrile. She developed hypotension and was brought to the ICU for evaluation. We were consulted to assess her abdominal distention and pain. She had a CAT scan performed showing diffuse colonic distention down to the rectosigmoid. There seems to be tapering in that area without definite obstructive lesion. She has had previous small bowel resection and a loss of visible fascia anteriorly in the lower midline. No definite pneumatosis, no free air, no portal venous gas seen. Diameter of the ascending colon approximately 7-7.5 cm transversely. Urine evaluation suggests urinary tract infection. She is acidotic with a low pH. Lactic acid was 2.0 earlier as morning. Amylase was slightly elevated with a normal lipase. She apparently has a history of pancreatitis in the past as well as a history of pyelonephritis. She has had multiple previous abdominal surgeries with small bowel obstructions. One of her sons believes that she has had a colonoscopy in the past but is unsure how long ago. She was told she has severe abdominal adhesions. Review of Systems ROS unobtainable: due to mental status Past Medical History Past Medical History: CVA/TIA, Diabetes Mellitus, Hyperlipidemia, Hypertension, Pneumonia, Seizure Disorder, Thyroid Disorder Additional Past Medical History / Comment(s): tia,dm but not on meds anymore and no bs checks,per pmh"past ulcer,hypothyroid, pancreatitis, uti, migraines, diverticulistis,osteroporosis, blood clots. 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 has a pet cat. gets around by elec scooter. Smoking Status: Unknown if ever smoked Past Alcohol Use History: None Reported Past Drug Use History: None Reported - Past Family History Mother Additional Family Medical History / Comment(s): Brain tumor Brother(s) Additional Family Medical History / Comment(s): Colon Cancer Father Family Medical History: Cancer Additional Family Medical History / Comment(s): Lung cancer Medications and Allergies Home Medications Medication Instructions Recorded Confirmed Type Albuterol Sulfate [Proair Hfa] 1 - 2 puff INHALATION RT-Q6H PRN 05/08/14 History Amitriptyline HCl [Elavil] 150 mg PO HS 05/08/14 05/08/17 History Clopidogrel [Plavix] 75 mg PO DAILY 05/08/14 05/08/17 History Levothyroxine Sodium [Synthroid] 75 mcg PO DAILY 05/08/14 05/08/17 History Topiramate [Topamax] 100 mg PO TID 05/08/14 05/08/17 History Furosemide [Lasix] 20 mg PO DAILY PRN 01/27/17 05/08/17 History LORazepam [Ativan] 0.5 mg PO DAILY PRN 01/27/17 05/08/17 History LORazepam [Ativan] 1 mg PO HS 01/27/17 05/08/17 History Metoprolol Tartrate [Lopressor] 50 mg PO BID 01/27/17 05/08/17 History Phenytoin Sodium Extended 200 mg PO BID 01/27/17 05/08/17 History [Dilantin] amLODIPine [Norvasc] 10 mg PO DAILY 01/27/17 05/08/17 History levETIRAcetam [Keppra] 500 mg PO TID 01/27/17 05/08/17 History Pantoprazole [Protonix] 40 mg PO BID #60 tab 02/15/17 05/08/17 Rx Pregabalin [Lyrica] 25 mg PO BID #60 capsule 02/15/17 05/08/17 Rx Cholecalciferol [Vitamin D3] 10,000 unit PO DAILY 05/08/17 05/08/17 History HYDROcodone/APAP 10-325MG [[place] 1 tab PO Q6H PRN 05/08/17 05/08/17 History 10-325] Losartan Potassium [Cozaar] 25 mg PO DAILY 05/08/17 05/08/17 History Morphine Sulfate ER [Ms Contin 60 mg PO Q12HR 05/08/17 05/08/17 History 60Mg] QUEtiapine [SEROquel] 25 mg PO BID 05/08/17 05/08/17 History Simvastatin [Zocor] 10 mg PO HS 05/08/17 05/08/17 History cloNIDine HCL [Catapres] 0.1 mg PO BID 05/08/17 05/08/17 History Allergies Allergy/AdvReac Type Severity Reaction Status Date / Time cephalexin [From Keflex] Allergy Unknown Verified 05/08/17 08:42 Cephalosporins Allergy Unknown Verified 05/08/17 08:42 ciprofloxacin [From Cipro] Allergy Rash/Hives Verified 05/08/17 08:42 diazepam [From Valium] Allergy Unknown Verified 05/08/17 08:42 erythromycin base Allergy Unknown Verified 05/08/17 08:42 [Erythromycin Base] ketorolac tromethamine Allergy Unknown Verified 05/08/17 08:42 [From Toradol] Penicillins Allergy Unknown Verified 05/08/17 08:42 pentazocine lactate Allergy Unknown Verified 05/08/17 08:42 [From Talwin] Sulfa (Sulfonamide Allergy Unknown Verified 05/08/17 08:42 Antibiotics) sumatriptan [From Imitrex] Allergy Unknown Verified 05/08/17 08:42 sumatriptan succinate Allergy Unknown Verified 05/08/17 08:42 [From Imitrex] tetracycline [Tetracycline] Allergy Unknown Verified 05/08/17 08:42 vancomycin Allergy Unknown Verified 05/08/17 08:42 levofloxacin [From Levaquin] AdvReac Nausea & Verified 05/08/17 08:42 Vomiting Surgical - Exam Vital Signs Temp Pulse Resp BP Pulse Ox 98.4 F 100 18 128/85 98 05/07/17 15:51 05/07/17 15:51 05/07/17 15:51 05/07/17 15:51 05/07/17 15:51 Physical exam: General: Well-developed, well-nourished, in obvious respiratory distress with BiPAP in place HEENT: Normocephalic, sclerae nonicteric Abdomen: Distended, some diffuse tenderness although difficult to evaluate with her neurologic status compromised Extremities: Mild edema Neuro: Confused, arousable to pain Rectal: Soft stool within the rectal vault, small amount of gas able to be evacuated Results - Labs 05/08/17 05:54 05/08/17 05:54 Abnormal Lab Results - Last 24 Hours (Table) 05/07/17 05/07/17 05/07/17 Range/Units 17:52 17:52 17:52 WBC (3.8-10.6) k/uL Hgb (11.4-16.0) gm/dL MCH (25.0-35.0) pg MCHC (31.0-37.0) g/dL Neutrophils # (Manual) (1.3-7.7) k/uL Lymphocytes # (Manual) (1.0-4.8) k/uL Monocytes # (Manual) (0-1.0) k/uL D-Dimer 4.27 H (<0.60) mg/L FEU ABG pH (7.35-7.45) ABG pCO2 (35-45) mmHg ABG pO2 (83-108) mmHg ABG HCO3 (21-25) mmol/L ABG Total CO2 (19-24) mmol/L ABG O2 Saturation (94-97) % Potassium 5.3 H (3.5-5.1) mmol/L Chloride (98-107) mmol/L Carbon Dioxide 12 L (22-30) mmol/L BUN 60 H (7-17) mg/dL Creatinine 3.77 H (0.52-1.04) mg/dL Glucose 206 H (74-99) mg/dL POC Glucose (mg/dL) (75-99) mg/dL Calcium (8.4-10.2) mg/dL AST 37 H (14-36) U/L Alkaline Phosphatase (38-126) U/L Total Creatine Kinase 589 H (30-135) U/L CK-MB (CK-2) 16.3 H* (0.0-2.4) ng/mL Total Protein (6.3-8.2) g/dL Albumin (3.5-5.0) g/dL Amylase 317 H* (30-110) U/L Urine Appearance (Clear) Urine Protein (Negative) Urine Blood (Negative) Ur Leukocyte Esterase (Negative) Urine RBC (0-5) /hpf Urine WBC (0-5) /hpf Urine WBC Clumps (None) /hpf Urine Bacteria (None) /hpf Urine Mucus (None) /hpf Urine Yeast (Budding) (None) /hpf 05/07/17 05/07/17 05/08/17 Range/Units 17:52 18:25 05:54 WBC 27.2 H* 14.2 H (3.8-10.6) k/uL Hgb 10.7 L (11.4-16.0) gm/dL MCH 23.8 L 23.6 L (25.0-35.0) pg MCHC 29.1 L 27.7 L (31.0-37.0) g/dL Neutrophils # (Manual) 24.40 H 12.40 H (1.3-7.7) k/uL Lymphocytes # (Manual) 0.82 L 0.71 L (1.0-4.8) k/uL Monocytes # (Manual) 2.18 H (0-1.0) k/uL D-Dimer (<0.60) mg/L FEU ABG pH (7.35-7.45) ABG pCO2 (35-45) mmHg ABG pO2 (83-108) mmHg ABG HCO3 (21-25) mmol/L ABG Total CO2 (19-24) mmol/L ABG O2 Saturation (94-97) % Potassium (3.5-5.1) mmol/L Chloride (98-107) mmol/L Carbon Dioxide (22-30) mmol/L BUN (7-17) mg/dL Creatinine (0.52-1.04) mg/dL Glucose (74-99) mg/dL POC Glucose (mg/dL) (75-99) mg/dL Calcium (8.4-10.2) mg/dL AST (14-36) U/L Alkaline Phosphatase (38-126) U/L Total Creatine Kinase (30-135) U/L CK-MB (CK-2) (0.0-2.4) ng/mL Total Protein (6.3-8.2) g/dL Albumin (3.5-5.0) g/dL Amylase (30-110) U/L Urine Appearance Turbid H (Clear) Urine Protein 1+ H (Negative) Urine Blood Small H (Negative) Ur Leukocyte Esterase Large H (Negative) Urine RBC 15 H (0-5) /hpf Urine WBC 26 H (0-5) /hpf Urine WBC Clumps Moderate H (None) /hpf Urine Bacteria Few H (None) /hpf Urine Mucus Many H (None) /hpf Urine Yeast (Budding) Few H (None) /hpf 05/08/17 05/08/17 05/08/17 Range/Units 05:54 06:24 11:55 WBC (3.8-10.6) k/uL Hgb (11.4-16.0) gm/dL MCH (25.0-35.0) pg MCHC (31.0-37.0) g/dL Neutrophils # (Manual) (1.3-7.7) k/uL Lymphocytes # (Manual) (1.0-4.8) k/uL Monocytes # (Manual) (0-1.0) k/uL D-Dimer (<0.60) mg/L FEU ABG pH (7.35-7.45) ABG pCO2 (35-45) mmHg ABG pO2 (83-108) mmHg ABG HCO3 (21-25) mmol/L ABG Total CO2 (19-24) mmol/L ABG O2 Saturation (94-97) % Potassium (3.5-5.1) mmol/L Chloride 109 H (98-107) mmol/L Carbon Dioxide 13 L (22-30) mmol/L BUN 75 H (7-17) mg/dL Creatinine 4.00 H (0.52-1.04) mg/dL Glucose 135 H (74-99) mg/dL POC Glucose (mg/dL) 126 H 142 H (75-99) mg/dL Calcium 7.3 L (8.4-10.2) mg/dL AST 87 H (14-36) U/L Alkaline Phosphatase 151 H (38-126) U/L Total Creatine Kinase (30-135) U/L CK-MB (CK-2) (0.0-2.4) ng/mL Total Protein 5.8 L (6.3-8.2) g/dL Albumin 3.3 L (3.5-5.0) g/dL Amylase (30-110) U/L Urine Appearance (Clear) Urine Protein (Negative) Urine Blood (Negative) Ur Leukocyte Esterase (Negative) Urine RBC (0-5) /hpf Urine WBC (0-5) /hpf Urine WBC Clumps (None) /hpf Urine Bacteria (None) /hpf Urine Mucus (None) /hpf Urine Yeast (Budding) (None) /hpf 05/08/17 05/08/17 05/08/17 Range/Units 13:37 13:58 15:14 WBC (3.8-10.6) k/uL Hgb (11.4-16.0) gm/dL MCH (25.0-35.0) pg MCHC (31.0-37.0) g/dL Neutrophils # (Manual) (1.3-7.7) k/uL Lymphocytes # (Manual) (1.0-4.8) k/uL Monocytes # (Manual) (0-1.0) k/uL D-Dimer (<0.60) mg/L FEU ABG pH 7.15 L* 7.23 L (7.35-7.45) ABG pCO2 34 L 34 L (35-45) mmHg ABG pO2 74 L 260 H (83-108) mmHg ABG HCO3 12 L 14 L (21-25) mmol/L ABG Total CO2 13 L 15 L (19-24) mmol/L ABG O2 Saturation 90.0 L 100.0 H (94-97) % Potassium (3.5-5.1) mmol/L Chloride (98-107) mmol/L Carbon Dioxide (22-30) mmol/L BUN (7-17) mg/dL Creatinine (0.52-1.04) mg/dL Glucose (74-99) mg/dL POC Glucose (mg/dL) 126 H (75-99) mg/dL Calcium (8.4-10.2) mg/dL AST (14-36) U/L Alkaline Phosphatase (38-126) U/L Total Creatine Kinase (30-135) U/L CK-MB (CK-2) (0.0-2.4) ng/mL Total Protein (6.3-8.2) g/dL Albumin (3.5-5.0) g/dL Amylase (30-110) U/L Urine Appearance (Clear) Urine Protein (Negative) Urine Blood (Negative) Ur Leukocyte Esterase (Negative) Urine RBC (0-5) /hpf Urine WBC (0-5) /hpf Urine WBC Clumps (None) /hpf Urine Bacteria (None) /hpf Urine Mucus (None) /hpf Urine Yeast (Budding) (None) /hpf Diabetes panel 05/07/17 05/08/17 Range/Units 17:52 05:54 Sodium 140 139 (137-145) mmol/L Potassium 5.3 H 4.9 (3.5-5.1) mmol/L Chloride 106 109 H (98-107) mmol/L Carbon Dioxide 12 L 13 L (22-30) mmol/L BUN 60 H 75 H (7-17) mg/dL Creatinine 3.77 H 4.00 H (0.52-1.04) mg/dL Glucose 206 H 135 H (74-99) mg/dL Calcium 8.6 7.3 L (8.4-10.2) mg/dL AST 37 H 87 H (14-36) U/L ALT 38 52 (9-52) U/L Alkaline Phosphatase 125 151 H (38-126) U/L Total Protein 7.1 5.8 L (6.3-8.2) g/dL Albumin 4.2 3.3 L (3.5-5.0) g/dL Calcium panel 05/07/17 05/08/17 Range/Units 17:52 05:54 Calcium 8.6 7.3 L (8.4-10.2) mg/dL Albumin 4.2 3.3 L (3.5-5.0) g/dL Pituitary panel 05/07/17 05/08/17 Range/Units 17:52 05:54 Sodium 140 139 (137-145) mmol/L Potassium 5.3 H 4.9 (3.5-5.1) mmol/L Chloride 106 109 H (98-107) mmol/L Carbon Dioxide 12 L 13 L (22-30) mmol/L BUN 60 H 75 H (7-17) mg/dL Creatinine 3.77 H 4.00 H (0.52-1.04) mg/dL Glucose 206 H 135 H (74-99) mg/dL Calcium 8.6 7.3 L (8.4-10.2) mg/dL Adrenal panel 05/07/17 05/08/17 Range/Units 17:52 05:54 Sodium 140 139 (137-145) mmol/L Potassium 5.3 H 4.9 (3.5-5.1) mmol/L Chloride 106 109 H (98-107) mmol/L Carbon Dioxide 12 L 13 L (22-30) mmol/L BUN 60 H 75 H (7-17) mg/dL Creatinine 3.77 H 4.00 H (0.52-1.04) mg/dL Glucose 206 H 135 H (74-99) mg/dL Calcium 8.6 7.3 L (8.4-10.2) mg/dL Total Bilirubin 0.3 0.4 (0.2-1.3) mg/dL AST 37 H 87 H (14-36) U/L ALT 38 52 (9-52) U/L Alkaline Phosphatase 125 151 H (38-126) U/L Total Protein 7.1 5.8 L (6.3-8.2) g/dL Albumin 4.2 3.3 L (3.5-5.0) g/dL Assessment and Plan (1) Abdominal pain Narrative/Plan: Patient with colonic distention. Whether this represents mechanical or functional obstruction is not clear. Certainly Brook[place]'s syndrome with possible megacolon as a result of her urinary infection is a plausible explanation. Colonic obstruction at the rectosigmoid however has not completely been ruled out. I spoke with both of her sons by phone. Apparently when she was ill and hospitalized last time there was discussion about a DO NOT RESUSCITATE status. Family is discussing how they would like to proceed at this point. Certainly she appears to benefit from mechanical ventilation and resuscitation. The patient is a extremely high surgical risk and if laparotomy was decided upon there is a high likelihood of the need for partial or subtotal colectomy with ostomy. The patient's likelihood of a meaningful recovery following that surgical intervention would be relatively poor. The family plans to further discuss their options and will notify me of their decision regarding both mechanical ventilation and surgical exploration. Current Visit: Yes Status: Acute Code(s): R10.9 - UNSPECIFIED ABDOMINAL PAIN SNOMED Code(s): 19376622
--- NOTE | 2017-05-08 17:00 | CONS ---
CONSULTATION This patient is a 76-year-old female who apparently presented by EMS to the emergency room with difficulty breathing and confusion with abdominal discomfort and abdominal distention. She apparently was brought in by EMS. She was screaming in the emergency department here. She was very confused. She apparently had significant respiratory difficulty. She was hyperventilating, according to EMS. The patient was not really with it. We were asked to see her because apparently they did a D-dimer on her and it was elevated. She had an indeterminate V/Q scan in the emergency department. My nurse practitioner and I went into the room to see her. What we noted was the patient to be in profound respiratory distress. She had significant respiratory difficulty with groaning respirations. You could hear her quite congested breathing pattern from outside the room. In addition, she seemed to have some abdominal distention and some tenderness on palpation. She was not very with it or oriented. She was very confused and disoriented. She clearly could not answer any basic questions. For that reason, we went ahead and ordered a STAT portable chest x-ray. We ordered a STAT blood gas. We also gave her Lasix 40 mg IV push and we turned down her IV fluids, which were running at 125/hour. The patient will be transferred to the unit. I have asked my nurse practitioner to talk to the family about CODE STATUS. We also gave a couple amps of bicarb. Finally, we placed her on BiPAP therapy and we are going to repeat a blood gas in about an hour. Overall prognosis does not look real good, as she has had significant decline recently. CURRENT MEDICATIONS: Her current medications include: 1. Albuterol. 2. Elavil. 3. Plavix. 4. Synthroid. 5. Topamax. 6. [place]. 7. Calcium. 8. Lasix. 9. Ativan. 10.Metoprolol. 11.Morphine. 12.Dilantin. 13.Vitamin B complex. 14.Amlodipine. 15.Keppra. 16.Colace. 17.Amitiza. 18.MiraLAX. 19.Protonix. 20.Lyrica. ALLERGIES: ALLERGIES are numerous and include: 1. CEPHALEXIN. 2. CEPHALOSPORIN ANTIBIOTICS. 3. CIPRO. 4. DIAZEPAM. 5. ERYTHROMYCIN. 6. TORADOL. 7. PENTAZOCINE. 8. SULFA ANTIBIOTICS. 9. IMITREX. 10.TETRACYCLINE ANTIBIOTICS. 11.VANCOMYCIN. 12.LEVAQUIN. MEDICAL HISTORY: Medical history includes: 1. CVA. 2. Diabetes. 3. Hyperlipidemia. 4. Hypertension. 5. Pneumonia. 6. Seizure disorder. 7. Hypothyroidism. 8. She has also had peptic ulcer disease. 9. Pancreatitis. 10.Migraine cephalgia. 11.Diverticular disease. 12.Osteoporosis. 13.Blood clots. 14.She has also had previous MRSA and VRE infections. SURGICAL HISTORY: Surgical history includes: 1. Adenoidectomy. 2. Appendectomy. 3. . 4. Cholecystectomy. 5. Hysterectomy. 6. Tonsillectomy. 7. She has also had a partial gastrectomy. 8. Bilateral shoulder surgery. 9. Left knee replacement. 10.Hernia repair. 11.Bowel resection with ileostomy. 12.Bilateral cataract surgery. SOCIAL HISTORY: She has apparently never been a smoker. FAMILY HISTORY: Apparently positive for colon cancer, lung cancer and brain cancer. REVIEW OF SYSTEMS: Review of systems could not be reliably obtained at this time from this patient. PHYSICAL EXAMINATION: Current vital signs include a temperature 99.6, heart rate 90, respiratory rate 18, blood pressure 95/51, mean 65. Two-liter saturation 92%. Currently very disoriented and confused. Cannot really answer any basic questions. HEENT examination is grossly unremarkable. Nasal oxygen in place. I cannot really get a good look at the oral cavity. NECK: Supple. Full range of motion. No adenopathy. Cardiovascular examination reveals regular rhythm and rate. S1, S2 normal. LUNGS: Some very coarse inspiratory and expiratory rhonchi. Breath sounds are very congested- sounding. No crackles or wheezes. ABDOMEN: Distended. Bowel sounds are not noted. Belly is tender to palpation. Extremities are intact. Slight edema. SKIN: Without rash. Neurologic examination could not be adequately performed. LABS: Labs are reviewed. Blood gas shows significant metabolic acidosis. From today, her white count is 14.2, hemoglobin 10.7, hematocrit 38.7, platelet count 256,000. PT, INR, PTT normal. D-dimer is 4.27. Sodium 139, potassium 4.9, chloride 109, CO2 13. Anion gap is 17. BUN and creatinine were 75 and 4 compared to 60 and 3.77. CK was 589, CK-MB 16.3, index 2.8. Troponins were 0.016 and 0.027. N-terminal proBNP 1480. Amylase was elevated at 317. Urine is showing evidence of a bladder infection. IMAGING: Chest x-ray from admission shows evidence of poor inspiration and some basilar infiltrate and/or pneumonia. It could be atelectasis as well. V/Q scan apparently was indeterminate probability. CT scan of the abdomen and pelvis shows significant fecal retention, right hydronephrosis and inferior pole non-obstructing left renal stones. Microbiology is currently negative. Labs and medications are reviewed. ASSESSMENT: 1. Impending respiratory failure. 2. Possible aspiration. 3. Severe metabolic acidosis. 4. Renal failure/acute kidney injury. 5. History of cerebrovascular accident. 6. Diabetes mellitus. 7. Hyperlipidemia. 8. Hypertension. 9. History of pneumonia. 10.History of seizure disorder. 11.Hypothyroidism. 12.History of pancreatitis. 13.History of osteoporosis. 14.Multiple other medical problems and comorbidities. PLAN: The patient is moved to the ICU. The patient is placed on BiPAP therapy. The patient is given a couple of amps of bicarb. Repeat blood gas will be done. Lasix was given 40 mg IV push. The fluids were turned down to KVO. We will add some updrafts. We will make sure there are labs and x-rays in the morning. Additional recommendations and suggestions forthcoming. I will have my nurse practitioner talk to the family about CODE STATUS. Prognosis is poor. MMODL / IJN: [id number] /
[2017-05-08] MEDS ORDERED: MORPHINE SULFATE 2 MG/ML SYRINGE IV PRN (17:32)
--- NOTE | 2017-05-08 18:04 | HP ---
HISTORY AND PHYSICAL CHIEF COMPLAINT: Shortness of breath and change in mental status. HISTORY OF PRESENT ILLNESS: This is a 76-year-old woman with a past history of CVA, TIA, diabetes, hypertension, hyperlipidemia, seizure disorder, pneumonia, adenoidectomy, being followed by [facility] in the outpatient setting, was admitted with complaints of change in mental status, shortness of breath. The patient apparently was on multiple pain medications and as well as antipsychotic medications. Patient apparently was screaming to the neighbors that the patient was unable to breathe and the patient was taken to [facility] and admitted for further evaluation and treatment. The initial chest x- ray done showed right perihilar infiltrate and possible pneumonia. Patient unable to give coherent history. Most of the history taken from my discussions with staff and review of chart at this time. PAST MEDICAL HISTORY: History of diabetes and hypertension, hyperlipidemia, pneumonia, seizure disorder, hypothyroidism. MEDICATIONS ARE: Home medications are noted and include: 1. Keppra 500 mg b.i.d. 2. Catapres 0.25 one p.o. b.i.d. 3. Norvasc 10 mg daily. 4. Topamax 100 mg b.i.d. 5. Zocor 10 mg q.h.s. 6. Seroquel 25 mg b.i.d. 7. Lyrica 20 mg b.i.d. 8. Dilantin 100 mg b.i.d. 9. Protonix 40 mg b.i.d. 10.MS Contin 60 mg p.o. b.i.d. 11.Lopressor 50 mg b.i.d. 12.Cozaar 50 mg daily. 13.Synthroid 70 mcg p.o. daily. 14.Ativan 1 mg q.h.s. and 0.5 mg daily p.r.n. 15.[place] 10 mg q.6h. 16.Lasix 20 mg p.o. daily p.r.n. 17.Plavix 75 mg b.i.d. 18.Vitamin D3 10,000 daily. 19.Elavil 50 mg p.o. q.h.s. 20.Pro-Air HFA 1-2 puffs q.6h p.r.n. ALLERGIES: ARE MULTIPLE ALLERGIES: KEFLEX, CEPHALOSPORIN, CIPRO, VALIUM, ERYTHROMYCIN, TORADOL, PENICILLIN, TALWIN, SULFONAMIDE, IMITREX, TETRACYCLINE, VANCOMYCIN AND LEVAQUIN. SOCIAL HISTORY: Family history and social history and review of systems could not be taken because the patient is stuporous at this time. History of smoking, unknown at this time. PHYSICAL EXAM: Patient is stuporous. Pulse is 107, blood pressure is 89/48, respiratory 20, temperature 102, pulse ox 94% on 100% BiPAP, HEENT: Conjunctivae normal. Oral mucosa moist. Neck is no jugular venous distention. No carotid bruit. No lymph node enlargement. Cardiovascular S1, S2 muffled. No S3, no S4. RESPIRATORY: Breath sounds diminished in the bases. A few scattered rhonchi. No crackles. ABDOMEN: Soft. Mild diffuse distention present. Mild diffuse tenderness present. Legs no edema no swelling. Central nervous system: Higher functions as mentioned earlier. Moves all four limbs. No focal deficits Lymphatics: No lymph nodes palpable in the neck, axillae or groin. Skin no ulcers, rashes or bleeding. LAB STUDIES: CT scan showed large degree of fecal retention, hydronephrosis. Otherwise pulmonary perfusion imaging shows intermediate probability and surgical consultation shows from Dr. Madrid noted. ASSESSMENT: 1. Shortness of breath and change in mental status, possible pneumonia with sepsis. 2. Possibly megacolon or Rowan syndrome, rule out intraabdominal pathology, acute abdomen as well as sepsis. 3. Acute hypoxic respiratory failure. 4. Metabolic encephalopathy multifactorial. 5. Acute renal failure possibly prerenal, multifactorial, acute tubular necrosis. 6. History of cerebrovascular accident, transient ischemic attack. 7. Diabetes type 2. 8. Hypertension. 9. Hyperlipidemia. 10.History of pneumonia. 11.Seizure disorder. 12.History hypothyroidism. 13.History of Methicillin-resistant Staphylococcus aureus. 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 15.History of anxiety. RECOMMENDATION AND DISCUSSION: In this 76-year-old woman who presented with multiple complex medical issues, we will monitor the patient closely, continue the current management and continue symptomatic treatment. I recommended surgical evaluation. Broad-spectrum IV antibiotics. Consult Dr. Jarrett. Transferred to ICU. Continue the rest of the medications. Hold antipsychotics. Drug levels including Keppra and as well as hold Topamax. Otherwise hold Lyrica. Nephrology evaluation. Monitor fluid and electrolytes balance closely. Prognosis once again is extremely guarded. Further recommendations to follow. Patient is currently FULL CODE. MMODL / IJN: [id number] /
[2017-05-08] MEDS: MORPHINE SULFATE 10 MG/ML SYRINGE IV PRN (20:58)
[2017-05-08] MEDS ORDERED: LORazepam 1 MG TAB PO SCH (21:00)
[2017-05-08] MEDS ORDERED: QUEtiapine 25 MG TAB PO SCH (21:00)
[2017-05-08] MEDS ORDERED: cloNIDine HCL 0.1 MG TAB PO SCH (21:00)
[2017-05-08] MEDS ORDERED: ATORVASTATIN 10 MG TAB PO SCH (21:00)
[2017-05-08] MEDS ORDERED: AMITRIPTYLINE HCL 50 MG TAB PO SCH (21:00)
[2017-05-08] MEDS: MORPHINE SULFATE (100 MG/2 ML) 100 MG in SODIUM CHLORIDE 0.9% 100 ML IV SCH (21:58)
--- NOTE | 2017-05-08 22:31 | CONS ---
CONSULTATION DATE OF SERVICE: 05/08/2017. REASON FOR CONSULTATION: Sepsis. HISTORY OF PRESENT ILLNESS: The patient is a 76-year-old female who was brought into the ER by the EMS yesterday with the chief complaints of increasing shortness of breath, confusion, and abdominal pain. On arrival to the ER, the patient did have a chest x-ray that was reported to be a poor inspiratory effort and right perihilar infiltrate, and a question of probably pneumonia. The patient who did not have any fever on admission. Subsequent spiked fever with a fever of 100 last night midnight and subsequently 102. The patient did receive multiple fluid boluses as the patient was hypertensive down to 80s systolic. The patient did have a CT of the abdominal pelvis which did read the possibility of large degree of fecal retention throughout the colon. Mild right hydronephrosis and a dilatation of the bowels. The patient apparently was noted to have increasing bowel distention. The patient did have significantly positive UA and did have elevated white count on admission of 27.2 that did seems to come down to 14.2 this morning. Urine significantly positive because of her multiple antibiotic allergy she has been treated with Azactam and ID was consulted for further recommendation regarding antibiotic therapy. Most of the information has been obtained from review of the chart and talking to the nursing staff as the patient unable to provide any reliable history. REVIEW OF SYSTEMS: Could not be reliably obtained. The positive points have been mentioned in HPI. PAST MEDICAL HISTORY: Significant for a recurrent urinary tract infection, CVA, TIA, diabetes mellitus, hypertension, hyperlipidemia, seizure disorder, hypothyroidism. PAST SURGICAL HISTORY: Appendectomy, adenoidectomy, , cholecystectomy, hysterectomy and tonsillectomy. SOCIAL HISTORY: No history of smoking, drinking, or drug use. FAMILY HISTORY: Mother with history of brain tumor. Brother history of colon cancer. Father history of lung cancer. ALLERGIES: TO CEPHALOSPORIN, CIPROFLOXACIN, DAPTOMYCIN, KETORALAC, VANCOMYCIN. MEDICATIONS: Medication include the patient is currently on: Keppra, Synthroid, Ativan, Cozaar, Lopressor, MS Contin, Morphine sulfate, Narcan, Protonix, Dilantin, Lyrica, Seroquel, Azactam 2 g q.8 hours, Lipitor, Norvasc, and Elavil. EXAMINATION: Blood pressure is 96/63 with a pulse of 94, T-max 102, she is 100% on 6 L nasal cannula. General description is an elderly female lying in bed in no distress. No tachypnea or accessory muscle respiration use. HEENT: Shows slight pallor. No scleral icterus. Oral mucosa is dry. Neck trachea central no thyromegaly. Lungs unlabored breathing with decreased breath sounds in the bases no wheeze. Heart S1, S2. Regular rhythm. ABDOMEN: Soft slightly distended. No guarding or rigidity. No organomegaly. Extremities no edema of feet. Skin examination no rash or mass palpable. Neurological patient is currently lethargic though responds to painful stimuli. Orientation could not be determined. LABS: Hemoglobin is 10.7, white count 14.2. Admission white count was 27.2 with a BUN of 60, creatinine of 3.77, potassium was elevated slightly with liver enzymes were not really elevated. Urine is positive. DIAGNOSTIC IMPRESSION/PLAN: 1. Patient with severe sepsis source is likely urinary in this patient who did have history of recurrent urinary tract infection. However underlying abdominal etiology could not be entirely excluded as the patient did have a dilatation of the bowel and possible functional or mechanical obstruction. The likely organism need to cover will be the enteric gram-negative both aerobes and anaerobes. 2. Patient who does have multiple antibiotic allergies that do limit number of antibiotics that could be safely used. PLAN: 1. IV antibiotic in the form of Azactam 2 g q.12 and Flagyl should provide adequate coverage for underlying gram negative both aerobes and anaerobes. 2. Increase IV fluid. 3. Depending upon clinical response and culture, we will further adjust medication if needed. Thank you for this consultation. Will follow this patient with you. MMODL / IJN: [id number] /
[2017-05-09] MEDS ORDERED: AZTREONAM 0.5 GM in SODIUM CHLORIDE 0.9% 50 ML IVPB SCH ×2
[2017-05-09] MEDS ORDERED: LORazepam 2 MG/ML INJ IV PRN ×2 (00:11→09:18)
[2017-05-09] MEDS ORDERED: ACETAMINOPHEN IV (For NPO) 1,000 MG in EMPTY BAG 1 BAG IVPB ONE (03:47)
[2017-05-09 03:50] VITALS: BP 102/50
[2017-05-09] MEDS: MORPHINE SULFATE 10 MG/ML SYRINGE IV PRN ×6 (04:37→11:49)
[2017-05-09] MEDS: LORazepam 2 MG/ML INJ IV PRN ×2 (06:29→09:14)
--- NOTE | 2017-05-09 07:01 | CONS ---
CONSULTATION The patient was seen early this morning. She was admitted to the hospital with complaints of mental status changes. The patient was seen on the floor. She answered a few questions, but was not able to give me a detailed history. Blood pressure had been low and the patient is currently maintained on IV fluids. Her serum creatinine was at 4.0 mg/dL this morning. Yesterday it was at 3.7. Review of previous labs shows creatinine of 0.8 on 04/22/2017. The patient had a CAT scan done yesterday without any IV contrast. Her urine output is not charted. It appears that she is incontinent. PAST MEDICAL HISTORY: Significant for diabetes, hypertension, hyperlipidemia, pneumonia, seizure disorder, hypothyroidism. ALLERGIES: Allergies are multiple including CEPHALOSPORIN, KEFLEX, CIPRO, VALIUM, ERYTHROMYCIN, TORADOL, PENICILLIN, TALWIN, SULFONAMIDE, IMITREX, TETRACYCLINE, VANCOMYCIN, LEVAQUIN. SOCIAL HISTORY: Not available at this time. MEDICATIONS: Medications at home included Keppra, clonidine, Norvasc, Topamax, Zocor, Seroquel, Lyrica, Dilantin, Protonix, MS Contin, Cozaar, Lopressor, Synthroid, Ativan, Hunter, Lasix, Plavix, vitamin D3, Elavil, ProAir. PHYSICAL EXAMINATION: On examination, currently patient is awake. She is able to answer a few questions, but she appears slightly confused. She is not in any acute distress. Blood pressure this morning was 89/48. Previously in the morning, it was around 141/71. Patient is afebrile. ON EXAMINATION OF THE HEART: S1, S2. EXAMINATION OF THE LUNGS: Bilateral breath sounds are heard. ABDOMEN: Distended, mild tenderness is noted. Examination of lower extremities shows no significant edema. MUSIC PUBLISHER exam shows patient moving all 4 extremities, but she is confused. LABS: Labs show sodium 139, potassium 4.9, CO2 was 13. BUN 75, serum creatinine 4.0. Hemoglobin 10.7 g/dL. ASSESSMENT: 1. Acute kidney injury, acute tubular necrosis secondary to hypotension hypoperfusion, currently nonoliguric; however, urine output is not accurately charted. 2. Severe metabolic acidosis currently with mild anion gap secondary to renal failure. 3. Pyuria, rule out urinary tract infection. Urine culture is currently pending. 4. Abdominal distention. Patient has already had an abdominal CT, which showed fecal retention. 5. Mild right hydronephrosis noted on CT. PLAN: Continue with IV fluids. Start sodium bicarb. Hold off on angiotensin receptor blockers and repeat labs in a.m. CHERISE / RONNY: [id number] /
[2017-05-09] MEDS ORDERED: ACETAMINOPHEN SUPPOSITORY 650 MG SUPP RECTAL PRN (08:02)
[2017-05-09 08:06] VITALS: TEMP 102.4
--- NOTE | 2017-05-09 08:56 | P.PN ---
Subjective Progress Note Date: 05/09/17 Progress note dated 05/09/2017 76-year-old female who we saw yesterday in consultation. Emergent consultation out on the sixth floor. She presented to the emergency department with complaints of difficulty breathing and confusion. She also had distended abdomen. The patient was admitted to the hospital on to the sixth floor. She came into the ER. She had an indeterminate VQ scan. The patient was doing very poorly yesterday saw her. We decided to transfere her to the ICU. She was placed on BiPAP. We will give her some Lasix. Additional recommendations were noted in my consultation. Anyway after consultation with the patient's family, she was made a comfort measures only. There was some concern that maybe the patient needed to go to the operating room for the distended abdomen and possible bowel obstruction. Dr. Chace Madrid wasn't really excited about taking her secretions because she was in such poor shape. In fact we we thought that if she went to the operating room, she may not survive surgery and actually dissuaded him from taking her to the operating room. This seemed to coincide when the family decided to make her comfort care only. Objective - Vital Signs Vital signs: Vital Signs Temp 102.4 F H 05/09/17 08:00 Pulse 112 H 05/09/17 08:00 Resp 15 05/09/17 08:00 BP 102/50 05/09/17 04:00 Pulse Ox 95 05/09/17 08:00 Intake & Output 05/08/17 05/09/17 05/09/17 18:59 06:59 18:59 Intake Total 625 37.145 Output Total 285 Balance 340 37.145 Intake: Intake, IV Titration 625 37.145 Amount Morphine Sulfate (100 mg/ 37.145 2 ml) 100 mg In Sodium Chloride 0.9% 100 ml @ 1 MG/HR 1.02 mls/hr IV . Q24H [facility] Rx#:[id number] Sodium Chloride 0.9% 1, 625 000 ml @ 10 mls/hr IV . Q24H [facility] Rx#:[id number] Output: Urine 285 Other: Voiding Method Diaper Indwelling Catheter Incontinent - Exam No acute distress, slightly tachypnea. The patient's unresponsive. Venturi mask in place at 40%. HEENT examination is grossly unremarkable. Mucous membranes are dry. Neck supple. Cardiovascular examination reveals regular rhythm rate. Heart rate about 100. Lungs reveal coarse rhonchi. Breath sounds are equal. Abdomen soft. Extremities are intact. No cyanosis clubbing or edema. Skin without rash. Neurologic examination cannot be performed. - Labs CBC & Chem 7: 05/08/17 05:54 05/08/17 05:54 Labs: Abnormal Lab Results - Last 24 Hours (Table) 05/08/17 05/08/17 05/08/17 Range/Units 11:55 13:37 13:58 ABG pH 7.15 L* (7.35-7.45) ABG pCO2 34 L (35-45) mmHg ABG pO2 74 L (83-108) mmHg ABG HCO3 12 L (21-25) mmol/L ABG Total CO2 13 L (19-24) mmol/L ABG O2 Saturation 90.0 L (94-97) % POC Glucose (mg/dL) 142 H 126 H (75-99) mg/dL 05/08/17 Range/Units 15:14 ABG pH 7.23 L (7.35-7.45) ABG pCO2 34 L (35-45) mmHg ABG pO2 260 H (83-108) mmHg ABG HCO3 14 L (21-25) mmol/L ABG Total CO2 15 L (19-24) mmol/L ABG O2 Saturation 100.0 H (94-97) % POC Glucose (mg/dL) (75-99) mg/dL Microbiology - Last 24 Hours (Table) 05/07/17 23:39 Blood Culture Gram Stain - Preliminary Blood 05/07/17 23:39 Blood Culture - Final Blood 05/08/17 14:31 Urine Culture - Preliminary Urine,Catheterized Assessment and Plan (1) Respiratory failure Current Visit: Yes Status: Acute Code(s): J96.90 - RESPIRATORY FAILURE, UNSP , UNSP W HYPOXIA OR HYPERCAPNIA SNOMED Code(s): 299092163 (2) Aspiration pneumonia Current Visit: Yes Status: Acute Code(s): J69.0 - PNEUMONITIS DUE TO INHALATION OF FOOD AND VOMIT SNOMED Code(s): 210197904 (3) Abdominal pain Current Visit: Yes Status: Acute Code(s): R10.9 - UNSPECIFIED ABDOMINAL PAIN SNOMED Code(s): 01276751 (4) Acute renal failure Current Visit: Yes Status: Acute Code(s): N17.9 - ACUTE KIDNEY FAILURE, UNSPECIFIED SNOMED Code(s): 54737926 (5) Expressive aphasia Current Visit: No Status: Acute Code(s): R47.01 - APHASIA SNOMED Code(s): 397565092 (6) Fall Current Visit: No Status: Acute Code(s): W19.XXXA - UNSPECIFIED FALL, INITIAL ENCOUNTER SNOMED Code(s): 9238980 (7) Febrile illness, acute Current Visit: No Status: Acute Code(s): R50.9 - FEVER, UNSPECIFIED SNOMED Code(s): 581206082 (8) Hyperkalemia Current Visit: No Status: Acute Code(s): E87.5 - HYPERKALEMIA SNOMED Code( s): 26086738 (9) Inflammatory bowel disease Current Visit: No Status: Acute Code(s): K52.9 - NONINFECTIVE GASTROENTERITIS AND COLITIS, UNSPECIFIED SNOMED Code(s): 63847880 (10) Metabolic acidosis Current Visit: No Status: Acute Code(s): E87.2 - ACIDOSIS SNOMED Code(s): 22059993 (11) Pancreatitis Current Visit: No Status: Acute Code(s): K85.90 - ACUTE PANCREATITIS WITHOUT NECROSIS OR INFECTION, UNSP SNOMED Code(s): 45536131 (12) Pneumonia Current Visit: No Status: Acute Code(s): J18.9 - PNEUMONIA, UNSPECIFIED ORGANISM SNOMED Code(s): 298456621 (13) Pyelonephritis Current Visit: No Status: Acute Code(s): N12 - TUBULO-INTERSTITIAL NEPHRITIS , NOT SPCF ACUTE OR CHRONIC SNOMED Code(s): 11257607 (14) Retention of urine Current Visit: No Status: Acute Priority: High Code(s): R33.9 - RETENTION OF URINE, UNSPECIFIED SNOMED Code(s): 713671747 (15) UTI (urinary tract infection) Current Visit: No Status: Acute Code(s): N39.0 - URINARY TRACT INFECTION, SITE NOT SPECIFIED SNOMED Code(s): 53615797 Plan: Plan dated 05/09/2017 The patient is a comfort measures only. I DC'ed the BiPAP from the room. The patient is currently on morphine sulfate at 20 mg an hour. She getting saline IV KVO. She get a Venturi mask on at 40%. No additional recommendations are made. We'll attempt to get her a bed on oncology or in a private room. Time with Patient: Greater than 30
[2017-05-09] MEDS: MORPHINE SULFATE (100 MG/2 ML) 100 MG in SODIUM CHLORIDE 0.9% 100 ML IV SCH ×2 (08:58→12:13)
[2017-05-09] MEDS ORDERED: LOSARTAN 25 MG TAB PO SCH (09:00)
[2017-05-09] MEDS ORDERED: ENOXAPARIN 80 MG/0.8 ML SYRINGE SQ SCH (09:00)
[2017-05-09] MEDS ORDERED: ENOXAPARIN 40 MG/0.4 ML SYRINGE SQ SCH (09:00)
[2017-05-09] MEDS ORDERED: ATROPINE OPHTH SOLN 1% 5ML BTL SUBLINGUAL PRN (09:16)
[2017-05-09] MEDS ORDERED: CHOLECALCIFEROL 1,000 UNIT TAB PO SCH (12:00)
--- NOTE | 2017-05-09 12:48 | P.DS ---
Providers Date of admission: 05/07/17 22:30 Attending physician: Ed Owens Consults: 05/07/17 22:31 Consult Physician Routine Consulting Provider: Nicko Rm Consult Reason/Comments: acute renal failure Do you want consulting provider notified?: Yes 05/08/17 11:48 Consult Physician Urgent Consulting Provider: Lenny Jarrett Consult Reason/Comments: possible PE per VQ scan. Do you want consulting provider notified?: Yes Consult Physician Urgent Consulting Provider: Jose Nolasco Consult Reason/Comments: possible sepsis Do you want consulting provider notified?: Yes 05/08/17 11:50 Consult Physician Urgent Consulting Provider: Chace Madrid Consult Reason/Comments: possible obstruction, distended abdomen Do you want consulting provider notified?: Yes Primary care physician: [facility] Course: Patient was admitted for bowel obstruction was treated for aspiration pneumonia was in ICU for respiratory failure. Patient was made hospice before I evaluated the patient and the patient by the time I can evaluate the patient. Primary cause of : Possible aspiration pneumonia with contribution from bowel obstruction. Please refer to nursing documentation for exact time and date of Patient Condition at Discharge: Fair Plan - Discharge Summary Discharge Rx Participant: No New Discharge Prescriptions: No Action Albuterol Sulfate [Proair Hfa] 1 - 2 puff INHALATION RT-Q6H PRN PRN Reason: Shortness Of Breath Topiramate [Topamax] 100 mg PO TID Levothyroxine Sodium [Synthroid] 75 mcg PO DAILY Amitriptyline HCl [Elavil] 150 mg PO HS Clopidogrel [Plavix] 75 mg PO DAILY LORazepam [Ativan] 1 mg PO HS LORazepam [Ativan] 0.5 mg PO DAILY PRN PRN Reason: Anxiety amLODIPine [Norvasc] 10 mg PO DAILY levETIRAcetam [Keppra] 500 mg PO TID Metoprolol Tartrate [Lopressor] 50 mg PO BID Phenytoin Sodium Extended [Dilantin] 200 mg PO BID Furosemide [Lasix] 20 mg PO DAILY PRN PRN Reason: Edema Pantoprazole [Protonix] 40 mg PO BID #60 tab Pregabalin [Lyrica] 25 mg PO BID #60 capsule cloNIDine HCL [Catapres] 0.1 mg PO BID Simvastatin [Zocor] 10 mg PO HS QUEtiapine [SEROquel] 25 mg PO BID Morphine Sulfate ER [Ms Contin 60Mg] 60 mg PO Q12HR Losartan Potassium [Cozaar] 25 mg PO DAILY HYDROcodone/APAP 10-325MG [Imperial 10-325] 1 tab PO Q6H PRN PRN Reason: Pain Cholecalciferol [Vitamin D3] 10,000 unit PO DAILY Discharge Medication List Albuterol Sulfate [Proair Hfa] 1 - 2 puff INHALATION RT-Q6H PRN 05/08/14 [ History] Amitriptyline HCl [Elavil] 150 mg PO HS 05/08/14 [History] Clopidogrel [Plavix] 75 mg PO DAILY 05/08/14 [History] Levothyroxine Sodium [Synthroid] 75 mcg PO DAILY 05/08/14 [History] Topiramate [Topamax] 100 mg PO TID 05/08/14 [History] Furosemide [Lasix] 20 mg PO DAILY PRN 01/27/17 [History] LORazepam [Ativan] 0.5 mg PO DAILY PRN 01/27/17 [History] LORazepam [Ativan] 1 mg PO HS 01/27/17 [History] Metoprolol Tartrate [Lopressor] 50 mg PO BID 01/27/17 [History] Phenytoin Sodium Extended [Dilantin] 200 mg PO BID 01/27/17 [History] amLODIPine [Norvasc] 10 mg PO DAILY 01/27/17 [History] levETIRAcetam [Keppra] 500 mg PO TID 01/27/17 [History] Pantoprazole [Protonix] 40 mg PO BID #60 tab 02/15/17 [Rx] Pregabalin [Lyrica] 25 mg PO BID #60 capsule 02/15/17 [Rx] Cholecalciferol [Vitamin D3] 10,000 unit PO DAILY 05/08/17 [History] HYDROcodone/APAP 10-325MG [Imperial 10-325] 1 tab PO Q6H PRN 05/08/17 [History] Losartan Potassium [Cozaar] 25 mg PO DAILY 05/08/17 [History] Morphine Sulfate ER [Ms Contin 60Mg] 60 mg PO Q12HR 05/08/17 [History] QUEtiapine [SEROquel] 25 mg PO BID 05/08/17 [History] Simvastatin [Zocor] 10 mg PO HS 05/08/17 [History] cloNIDine HCL [Catapres] 0.1 mg PO BID 05/08/17 [History] Follow up Appointment(s)/Referral(s): Margarita Salcedo DO [Primary Care Provider] - 1-2 days
[2017-05-09 13:59] VITALS: PULSE 0; RESP 0
== END 2017-05-09 12:30 | disposition expired | DRG 871 ==
LOC: EC 15:41 → 6SEL 22:30 → 6ICU 05-08 13:48
PROVIDERS: ADMIT Hospitalist; ATTEND Hospitalist
DX: A41.9 Sepsis, unspecified organism (principal); J69.0 Pneumonitis due to inhalation of food and vomit; J96.01 Acute respiratory failure with hypoxia; N17.0 Acute kidney failure with tubular necrosis; G93.41 Metabolic encephalopathy; K56.50 Intestinal adhesions [bands], unspecified as to partial versus complete obstruction; I95.9 Hypotension, unspecified; K85.90 Acute pancreatitis without necrosis or infection, unspecified; E87.2 Acidosis; N13.6 Pyonephrosis; R47.01 Aphasia; R65.20 Severe sepsis without septic shock; E87.5 Hyperkalemia; E11.9 Type 2 diabetes mellitus without complications; G40.909 Epilepsy, unspecified, not intractable, without status epilepticus; Z51.5 Encounter for palliative care; K52.9 Noninfective gastroenteritis and colitis, unspecified; I10 Essential (primary) hypertension; E78.5 Hyperlipidemia, unspecified; E03.9 Hypothyroidism, unspecified; F41.9 Anxiety disorder, unspecified; K57.90 Diverticulosis of intestine, part unspecified, without perforation or abscess without bleeding; G43.909 Migraine, unspecified, not intractable, without status migrainosus; M81.0 Age-related osteoporosis without current pathological fracture; R32 Unspecified urinary incontinence; Z79.02 Long term (current) use of antithrombotics/antiplatelets; Z79.891 Long term (current) use of opiate analgesic; Z79.899 Other long term (current) drug therapy; Z86.14 Personal history of Methicillin resistant Staphylococcus aureus infection; Z98.41 Cataract extraction status, right eye; Z98.42 Cataract extraction status, left eye; Z90.3 Acquired absence of stomach [part of]; Z96.652 Presence of left artificial knee joint; Z90.710 Acquired absence of both cervix and uterus; Z90.49 Acquired absence of other specified parts of digestive tract; Z86.19 Personal history of other infectious and parasitic diseases; Z87.11 Personal history of peptic ulcer disease; Z87.01 Personal history of pneumonia (recurrent); Z86.73 Personal history of transient ischemic attack (TIA), and cerebral infarction without residual deficits; Z88.1 Allergy status to other antibiotic agents; Z88.5 Allergy status to narcotic agent; Z88.0 Allergy status to penicillin; Z88.2 Allergy status to sulfonamides; Z88.8 Allergy status to other drugs, medicaments and biological substances; W19.XXXA Unspecified fall, initial encounter
CPT/HCPCS: 36415; 36600; 71010; 71020; 74000; 74176; 78582; 80053; 80177; 80185; 81001; 82150; 82550; 82553; 82805; 83605; 83690; 83880; 84484; 85025; 85379; 85610; 85730; 87040; 87077; 87086; 87186; 93005; 94640; 94660; 96361; 96365; 96372; 99285